=== PATIENT | male | born 1965 | race Caucasian/White ===

== ENCOUNTER 2016-09-04 12:31 | Inpatient (IN) | payer OTHER, MEDICAID ==
[~2016-09-04] VITALS: Ht 167.6 cm; Wt 57.5 kg
[2016-09-04] MEDS ORDERED: CEFEPIME 2GM/50 ML (PMX) 50 ML IVPB STA (12:47)
[2016-09-04] MEDS ORDERED: SODIUM CHLORIDE 0.9% 1L BAG IV* STA (12:47)
[2016-09-04] MEDS ORDERED: VANCOMYCIN 1 GM (PMX) 250 ML IVPB ONE (13:00)
[2016-09-04 13:54] LABS: ADD SCAN DIFF NO
[2016-09-04 13:58] LABS: BASOPHILS % 0.2 % (0.0-2.0); EOSINOPHILS % 0.1 % (0.0-7.0); HEMATOCRIT 29.9 % (42.0-52.0); HEMOGLOBIN 9.9 g/dl (14.0-18.0); LYMPHOCYTES # 1.4 10^3/ul (0.8-2.9); LYMPHOCYTES % 15.2 % (15.0-51.0); MEAN CORPUSCULAR HEMOGLOBIN 31.9 pg (29.0-33.0); MEAN CORPUSCULAR HGB CONC 33.1 g/dl (32.0-37.0); MEAN CORPUSCULAR VOLUME 96.5 fl (82.0-101.0); MEAN PLATELET VOLUME 9.5 fl (7.4-10.4); MONOCYTE # 1.1 10^3/ul (0.3-0.9); MONOCYTES % 11.2 % (0.0-11.0); NEUTROPHIL # 6.9 10^3/ul (1.6-7.5); NEUTROPHILS % 72.9 % (39.0-77.0); PLATELET COUNT 304 10^3/UL (140-415); RED CELL DISTRIBUTION WIDTH 15.8 % (11.5-14.5); WHITE BLOOD COUNT 9.4 10^3/ul (4.8-10.8)
--- NOTE | 2016-09-04 14:08 | RADRPT ---
PROCEDURE: XR Chest. CLINICAL INDICATION: Sepsis TECHNIQUE: Chest AP portable. COMPARISON: No comparison available. FINDINGS: ORIF left humerus. Left hand over the left mid lung field. The mediastinal structures are unremarkable. The heart is normal in size and configuration. The pu lmonary vascularity is normal. The lung dan are unremarkable. No consolidation is identified. The pleural spaces are unremarkable. The axial skeleton is unremarkable. Old healed left rib fractu res. IMPRESSION: No active intrathoracic disease. RPTAT: HGDB .Terrance Grover MD, MD Date Time Electronically viewed and signed by .Terrance Grover MD, on 09/04/2016 14:07 .B/
[2016-09-04 14:13] LABS: ALBUMIN 2.5 g/dl (3.3-4.9); CHLORIDE 100 mmol/L (97-110); SODIUM 142 mmol/L (135-144)
[2016-09-04 14:14] LABS: INR 1.37; PROTIME 16.9 Sec (12.2-14.2); PT RATIO 1.3
[2016-09-04 14:15] LABS: PARTIAL THROMBOPLASTIN TIME 25.4 Sec (25.0-35.0)
[2016-09-04 14:16] LABS: ALANINE AMINOTRANSFERASE 45 IU/L (13-69); ALBUMIN/GLOBULIN RATIO 0.54; ALKALINE PHOSPHATASE 123 IU/L (42-121); ANION GAP 16 (8-16); ASPARTATE AMINO TRANSFERASE 28 IU/L (15-46); BILIRUBIN,INDIRECT 1.1 mg/dl (0-1.1); BILIRUBIN,TOTAL 1.1 mg/dl (0.2-1.3); BLOOD UREA NITROGEN 11 mg/dl (7-20); CALCIUM 7.8 mg/dl (8.4-10.2); CARBON DIOXIDE 29 mmol/L (21-31); CREATININE 1.08 mg/dl (0.61-1.24); GLUCOSE 124 mg/dl (70-220); LACTATE DEHYDROGENASE 761 IU/L (313-618); TOTAL PROTEIN 7.1 g/dl (6.1-8.1)
[2016-09-04 14:27] LABS: TROPONIN-I < 0.012 ng/ml (0.00-0.12)
--- NOTE | 2016-09-04 14:51 | ERA ---
ER Documentation Chief Complaint Date/Time DATE: 09/04/16 TIME: 14:49 Chief Complaint COUGH CONGESTION FOR 1 WEEK. MILD SOB. GEN WEAKNESS. HPI Patient is a 50-year-old male with pneumonia, stroke, and HIV who presents with cough. The patient was brought in by ambulance. He has a history of pneumonia 1 month ago and was on antibiotics for 10 days. Last night he started with chills and shortness of breath as well as cough. He has subjective fever but has not taken his temperature. He is speaking in full sentences. He said that his last CD4 count was 456 and that his last viral load was undetectable. Upon review of old medical records this is the patient's first visit to the emergency department. ROS All systems reviewed and are negative except as per history of present illness. Allergies Allergies: Coded Allergies: No Known Allergy (Unverified , 09/04/16) PMhx/Soc History of Surgery: No Anesthesia Reaction: No Hx Neurological Disorder: No Hx Respiratory Disorders: No Hx Cardiac Disorders: No Hx Psychiatric Problems: No Hx Miscellaneous Medical Probl: Yes (HIV,STROKE) Hx Alcohol Use: No Hx Substance Use: No Hx Tobacco Use: No Smoking Status: Never smoker FmHx Family History: No diabetes Physical Exam Vitals Vital Signs Date Time Temp Pulse Resp B/P Pulse Ox O2 Delivery O2 Flow Rate FiO2 09/04/16 14:08 Nasal Cannula 2.0 09/04/16 14:03 Nasal Cannula 2 09/04/16 12:35 99.9 106 22 110/80 98 Physical Exam Const: Mild distress Head: Atraumatic Eyes: Normal Conjunctiva ENT: Normal External Ears, Nose and Mouth. Neck: Full range of motion..~ No meningismus. Resp: Decreased breath sounds bilaterally Cardio: Regular rate and rhythm, no murmurs Abd: Soft, non tender, non distended. Normal bowel sounds Skin: No petechiae or rashes Back: No midline or flank tenderness Ext: No cyanosis, or edema Neur: Awake and alert, left-sided weakness from previous stroke Psych: Normal Mood and Affect Result Diagram: 09/04/16 1345 09/04/16 1345 Results 24 hrs Laboratory Tests Test 09/04/16 13:45 White Blood Count 9.410^3/ul Red Blood Count 3.1010^6/ul Hemoglobin 9.9g/dl Hematocrit 29.9% Mean Corpuscular Volume 96.5fl Mean Corpuscular Hemoglobin 31.9pg Mean Corpuscular Hemoglobin Concent 33.1g/dl Red Cell Distribution Width 15.8% Platelet Count 78252^3/UL Mean Platelet Volume 9.5fl Neutrophils % 72.9% Lymphocytes % 15.2% Monocytes % 11.2% Eosinophils % 0.1% Basophils % 0.2% Nucleated Red Blood Cells % 0.0/100WBC Neutrophils # 6.910^3/ul Lymphocytes # 1.410^3/ul Monocytes # 1.110^3/ul Eosinophils # 0.010^3/ul Basophils # 0.010^3/ul Nucleated Red Blood Cells # 0.010^3/ul Prothrombin Time 16.9Sec Prothrombin Time Ratio 1.3 INR International Normalized Ratio 1.37 Activated Partial Thromboplast Time 25.4Sec Sodium Level 142mmol/L Potassium Level 3.0mmol/L Chloride Level 100mmol/L Carbon Dioxide Level 29mmol/L Anion Gap 16 Blood Urea Nitrogen 11mg/dl Creatinine 1.08mg/dl Glucose Level 124mg/dl Lactic Acid Level 3.5mmol/L Calcium Level 7.8mg/dl Total Bilirubin 1.1mg/dl Direct Bilirubin 0.00mg/dl Indirect Bilirubin 1.1mg/dl Aspartate Amino Transf (AST/SGOT) 28IU/L Alanine Aminotransferase (ALT/SGPT) 45IU/L Alkaline Phosphatase 123IU/L Lactate Dehydrogenase 761IU/L Troponin I < 0.012ng/ml Total Protein 7.1g/dl Albumin 2.5g/dl Globulin 4.60g/dl Albumin/Globulin Ratio 0.54 Current Medications Medications (Trade) Dose Ordered Sig/Charito Route PRN Reason Start Time Stop Time Status Last Admin Dose Admin Sodium Chloride 1400 ml 1,400 ml BOLUS OVER 2 HOURS STAT IV* 09/04/16 12:47 09/04/16 12:49 DC 09/04/16 13:54 Cefepime HCl 50 ml @ 100 mls/hr ONCE STAT IVPB 09/04/16 12:47 09/04/16 13:16 DC 09/04/16 13:55 Vancomycin HCl (Vancocin) 250 ml @ 125 mls/hr ONCE ONCE IVPB 09/04/16 13:00 09/04/16 14:59 09/04/16 14:14 Procedures/MDM EKG read by me: Rate/Rhythm: Tachycardic rate Intervals: Normal Impression: Tachycardia without ischemia Chest x-ray shows no obvious pneumonia per radiology. Admit MDM: Patient's infectious symptoms have not stabilized and the patient is at risk of rapid decompensation. The patient will be admitted for careful hydration, antibiotic therapy, and infectious source control. Severe Sepsis criteria: Infectious source: Pneumonia End organ damage indicated by: Lactate greater than 2 Sepsis Management: Time of recognition of sepsis: Upon arrival Within 3 hours of recognition: Blood cultures x 2 before broad-spectrum antibiotics: Yes 30 ml/kg NS bolus Completed Initial lactate 3.5 Repeat lactate pending Time of recognition of septic shock: No septic shock Septic Shock Assessment: Any lactic acid > 4.0 No Persistent hypotension (SBP < 90 or 40 mmHg drop, MAP < 65) despite 30 mL/kg IV fluid bolus No Volume Re-assessment for Septic Shock (post 30 ml/kg bolus): No septic shock at this time Persistent Hypotension Treatment: Comfort care No Central line Not Required Vasopressor started Not required I considered further perfusion assessment with CVP measurement, SCVO2, bedside ultrasound volume assessment, passive leg raise, trial of further fluid bolus. And proceeded with 30 ml/kg fluid bolus of NSS, broad spectrum antibiotics, and admission. I will also give p.o. Bactrim for possible PCP pneumonia as the patient has HIV and an elevated lactate dehydrogenase. Accepting Care Team Current data and ongoing care discussed. Admitting Physician: Unclear at this time, we are figuring out who will admit based on insurance agency owner(s): None Outstanding Data: Culture results and repeat lactic acid Critical Care: Critical care time 35 minutes excluding all billable procedures Emergent fluid management while maintaining close respiratory support. Provision of immediate and broad-spectrum antibiotic therapy. Simultaneous assessment for possible sources in order to direct targeted therapy. Consideration for invasive and chemical support to prevent cardiopulmonary collapse. Departure Diagnosis: Primary Impression: Severe sepsis Additional Impressions: Cough Pneumonia Qualified Code: J18.9 - Pneumonia due to infectious organism, unspecified laterality, unspecified part of lung Anemia Qualified Code: D64.9 - Anemia, unspecified type Hypokalemia Condition: Serious CORY UNDERWOOD MD September 04, 2016 14:51
[2016-09-04] MEDS ORDERED: TRIMETHOPRIM/SULFAMETHOX (DS) TAB PO ONE (15:00)
[2016-09-04] MEDS ORDERED: ONDANSETRON 4 MG INJ IV STA (15:14)
[2016-09-04] MEDS ORDERED: ONDANSETRON 4 MG INJ IV PRN (16:00)
[2016-09-04] MEDS ORDERED: ACETAMINOPHEN 325 MG TAB PO PRN ×2 (16:00→16:30)
[2016-09-04] MEDS ORDERED: VANCOMYCIN IV PER PHARMACY XX SCH (16:30)
[2016-09-04] MEDS ORDERED: NITROGLYCERIN (SL) 0.4 MG TAB SL PRN (16:30)
[2016-09-04] MEDS ORDERED: NA PHOSPHATE/BIPHOS 133 ML ENEMA PR PRN (16:30)
[2016-09-04] MEDS ORDERED: NACL 0.9% 3 ML SYG IV SCH (16:30)
[2016-09-04] MEDS ORDERED: hydrALAzine 20 MG INJ IV PRN (16:30)
[2016-09-04] MEDS ORDERED: LORAZEPAM 2 MG INJ IV PRN (16:30)
[2016-09-04] MEDS ORDERED: ALBUTEROL/IPRATROPIUM (NEB) 3 ML AMP HHN PRN (16:30)
[2016-09-04] MEDS ORDERED: POTASSIUM CHLORIDE (SR) 20 MEQ TAB PO STA (18:09)
[2016-09-04] MEDS: SOD CHLORIDE 0.9% 1,000 ML IV SCH (18:55)
[2016-09-04 20:00] VITALS: Ht 167.6 cm; Wt 57.5 kg
[2016-09-04] MEDS: HEPARIN 5,000 UNIT/0.5 ML VIAL SC SCH (20:18)
[2016-09-04] MEDS: ONDANSETRON 4 MG INJ IV PRN (20:20)
[2016-09-04] MEDS: morphine 2 MG INJ IV PRN (20:20)
[2016-09-04 20:36] VITALS: BP 114/78; RESP 18
[2016-09-04] MEDS: CEFEPIME 2GM/50 ML (PMX) 50 ML IVPB SCH (21:36)
[2016-09-05] MEDS: morphine 2 MG INJ IV PRN ×3 (01:40→20:10)
[2016-09-05] MEDS: SOD CHLORIDE 0.9% 1,000 ML IV SCH ×3 (02:02→18:30)
[2016-09-05] MEDS: VANCOMYCIN 500MG/NS (PMX) 100 ML IVPB SCH ×2 (04:34→18:35)
[2016-09-05] MEDS: ONDANSETRON 4 MG INJ IV PRN (04:34)
[2016-09-05] MEDS: PANTOPRAZOLE (EC) 40 MG TAB PO SCH (06:28)
[2016-09-05 07:45] VITALS: BP 124/81; RESP 18
[2016-09-05 08:21] LABS: THYROID STIMULATING HORMONE 2.1 MIU/L (0.465-4.680)
[2016-09-05] MEDS: DOCUSATE SODIUM 100 MG CAP PO PRN (09:58)
[2016-09-05] MEDS: HYDROCODONE/APAP (5/325) TAB PO PRN ×2 (09:59→18:30)
[2016-09-05] MEDS: HEPARIN 5,000 UNIT/0.5 ML VIAL SC SCH ×2 (10:01→20:25)
[2016-09-05 10:28] LABS: ADD SCAN DIFF NO
[2016-09-05 10:41] LABS: BASOPHILS % 0.5 % (0.0-2.0); EOSINOPHILS # 0.1 10^3/ul (0.0-0.5); EOSINOPHILS % 1.7 % (0.0-7.0); HEMATOCRIT 27.7 % (42.0-52.0); HEMOGLOBIN 8.9 g/dl (14.0-18.0); LYMPHOCYTES # 1.4 10^3/ul (0.8-2.9); MEAN CORPUSCULAR HEMOGLOBIN 32.2 pg (29.0-33.0); MEAN CORPUSCULAR HGB CONC 32.1 g/dl (32.0-37.0); MEAN CORPUSCULAR VOLUME 100.4 fl (82.0-101.0); MEAN PLATELET VOLUME 9.8 fl (7.4-10.4); MONOCYTE # 0.6 10^3/ul (0.3-0.9); MONOCYTES % 10.2 % (0.0-11.0); NEUTROPHIL # 3.8 10^3/ul (1.6-7.5); NEUTROPHILS % 63.1 % (39.0-77.0); PLATELET COUNT 265 10^3/UL (140-415); RED BLOOD COUNT 2.76 10^6/ul (4.70-6.10); RED CELL DISTRIBUTION WIDTH 16.1 % (11.5-14.5)
[2016-09-05 10:53] LABS: CALCIUM 7.7 mg/dl (8.4-10.2); CREATININE 0.97 mg/dl (0.61-1.24); PHOSPHORUS 3.1 mg/dl (2.5-4.9); POTASSIUM 3.4 mmol/L (3.5-5.1)
--- NOTE | 2016-09-05 11:37 | HP ---
DATE OF ADMISSION: 09/04/2016 CHIEF COMPLAINT: Cough. HISTORY OF PRESENT ILLNESS: The patient is a 50-year-old male with a history of HIV, CVA with left- sided residual weakness, bipolar, depression, who presented to the emergency department complaining of cough. He stated that he was recently diagnosed with pneumonia and completed over 1 week course of antibiotics. He stated his cough is dry for the most part. He also reports shortness of breath. Denied chest pain, no fever or chills. The patient also reported nausea and also nonbilious, nonb loody vomiting. When he presented to the ER, he had a temperature of 99.9, heart rate 106, respiratory rate 22, bloo d pressure 110/80, oxygen saturation 98% on room air. Laboratory values show a hemoglobin of 9.9, p otassium 3, alkaline phosphatase 123, calcium is 7.8, but albumin is 2.5. Initial lactic acid 3.5, but it trended down to 2.2. A chest x-ray shows no active intrathoracic disease. REVIEW OF SYSTEMS: A 12-point review of systems was performed and negative except as mentioned in H PI. PAST MEDICAL HISTORY: As per HPI. PAST SURGICAL HISTORY: Hernia repair and appendectomy. SOCIAL HISTORY: Denied a history of tobacco or illicit drug use, but drinks alcohol occasionally. ALLERGIES: NO KNOWN DRUG ALLERGIES. HOME MEDICATIONS: Please see reconciled meds. PHYSICAL EXAMINATION: VITAL SIGNS: Stable. GENERAL: No acute distress. Answering questions appropriately. He is able to speak in full senten jenelle. HEENT: No obvious head deformity. Pupils are reactive to light. CARDIOVASCULAR: Slightly tachycardic, regular rhythm. LUNGS: Minimally diminished breath sounds at the bases. ABDOMEN: Soft, nontender, nondistended. Positive bowel sounds. EXTREMITIES: No edema. NEUROLOGIC: There is decreased strength on the left side of his body. The left hand also has contr actures. LABORATORY DATA: Pertinent positives results as mentioned in the HPI. IMPRESSION: 1. Cough, likely from recent residual pneumonia. 2. History of human immunodeficiency virus. Per patient, recent CD4 count almost 500 and viral raphael d undetectable. 3. History of cerebrovascular accident with left-sided residual weakness. 4. History of bipolar/depression. 5. Hypokalemia. 6. Normocytic anemia, likely anemia of chronic disease. PLAN: He will be placed on antibiotics given recently diagnosed pneumonia. He will receive breathi ng treatments and antitussive. Given his recent history of pneumonia and presentation with lactic a eva of 3.5, we will do an infectious workup. We will attempt to send sputum for Gram stain and cult ure. We will consider placing an ID consultation to also help with his HIV. We will check his CD4 count and viral load. We will correct electrolytes as needed. Further workup and management per clinical course. Dictated By: PRETTY OLIVEROS/NITHIN Conf#: [id number] DID#: [id number]
[2016-09-05] MEDS: CEFEPIME 2GM/50 ML (PMX) 50 ML IVPB SCH ×2 (11:41→20:11)
--- NOTE | 2016-09-05 15:50 | PN ---
Date/Time of Note Date/Time of Note DATE: 09/05/16 TIME: 15:41 Assessment/Plan VTE Prophylaxis VTE Prophylaxis Intervention: SCD's Lines/Catheters IV Catheter Type (from Nrs): Peripheral IV Urinary Cath still in place: No Assessment/Plan Assessment/Plan 1. Cough, likely from recent residual pneumonia, on cefepime and vancomycin 2. Human immunodeficiency virus. Per patient, recent CD4 count almost 500 and viral load undetectable. resume medications 3. History of cerebrovascular accident with left-sided residual weakness. 4. Bipolar/depression. stable 5. Hypokalemia. supplement 6. Normocytic anemia, likely anemia of chronic disease. Subjective 24 Hr Interval Summary Free Text/Dictation states cough, nausea and vomiting at home. Exam/Review of Systems Vital Signs Vitals Vital Signs Date Time Temp Pulse Resp B/P Pulse Ox O2 Delivery O2 Flow Rate FiO2 09/05/16 07:45 98.4 83 18 124/81 96 09/04/16 17:47 Room Air 09/04/16 14:08 2.0 Intake and Output 09/04/16 09/04/16 09/05/16 15:00 23:00 07:00 Intake Total 300 ml 480 ml Output Total 50 ml Balance 300 ml 430 ml Exam Constitutional: alert, oriented, well developed Psych: nl mood/affect, no complaints Head: atraumatic, normocephalic Eyes: EOMI, PERRL, nl conjunctiva, nl lids ENMT: nl external ears & nose, nl lips & teeth, nl nasal mucosa & septum Neck: non-tender, supple Respiratory: clear to auscultation, normal air movement, No congested cough, No crackles/rales, No diminished breath sounds, No intercostal retraction, No labored breathing, No other, No respirations, No tactile fremitus, No wheezing Cardiovascular: nl pulses, regular rate and rhythm, No S3, No S4, No bruits, No diastolic murmur, No edema, No gallop, No irregular rhythm, No jugular venous distention (JVD), No murmurs/extra sounds, No other, No rub, No systolic murmur Gastrointestinal: nl liver, spleen, non-tender, soft, No ascites, No bowel sounds, No distended, No firm, No hepatomegaly, No mass , No other, No rebound or guarding, No splenomegaly, No surgical scars, No tender Musculoskeletal: nl extremities to inspection Extremities: normal pulses, No calf tenderness, No clubbing, No cyanosis, No edema, No other, No palpable cord, No pitting pedal edema, No tenderness Neurological: 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, nl mental status, nl speech, nl strength Results Result Diagram: 09/05/16 1010 09/05/16 1010 Results 24 hrs Laboratory Tests Test 09/04/16 19:44 09/04/16 23:50 09/05/16 05:35 09/05/16 10:10 Lactic Acid Level 2.8 H 2.2 2.3 H Hemoglobin A1c 4.6 Triglycerides Level 94 Cholesterol Level 90 L LDL Cholesterol, Calculated 41 HDL Cholesterol 30 Cholesterol/HDL Ratio 3.0 Thyroid Stimulating Hormone (TSH) 2.100 White Blood Count 6.0 # Red Blood Count 2.76 L Hemoglobin 8.9 L Hematocrit 27.7 L Mean Corpuscular Volume 100.4 Mean Corpuscular Hemoglobin 32.2 Mean Corpuscular Hemoglobin Concent 32.1 Red Cell Distribution Width 16.1 H Platelet Count 265 Mean Platelet Volume 9.8 Neutrophils % 63.1 Lymphocytes % 24.0 Monocytes % 10.2 Eosinophils % 1.7 Basophils % 0.5 Nucleated Red Blood Cells % 0.0 Neutrophils # 3.8 Lymphocytes # 1.4 Monocytes # 0.6 Eosinophils # 0.1 Basophils # 0.0 Nucleated Red Blood Cells # 0.0 Sodium Level 138 Potassium Level 3.4 L Chloride Level 106 Carbon Dioxide Level 28 Anion Gap 7 #L Blood Urea Nitrogen 12 Creatinine 0.97 Glucose Level 141 Calcium Level 7.7 L Phosphorus Level 3.1 Magnesium Level 2.0 Test 09/05/16 13:05 Lactic Acid Level 2.8 H Medications Medications Current Medications Ondansetron HCl (Zofran Inj) 4 mg Q6H PRN IV NAUSEA AND/OR VOMITING Last administered on 09/05/16 04:34; Admin Dose 4 MG; Start 09/04/16 at 16:30 Acetaminophen (Tylenol Tab) 650 mg Q6H PRN PO PAIN LEVEL 1-3 OR FEVER; Start at 16:30 Acetaminophen/ Hydrocodone Bitart ([place] (5/325)) 1 tab Q6H PRN PO MODERATE PAIN LEVEL 4-6 Last administered on 09/05/16 09:59; Admin Dose 1 TAB; Start at 16:30 Morphine Sulfate (morphine) 2 mg Q4H PRN IV SEVERE PAIN LEVEL 7-10 Last administered on 09/05/16 15:39; Admin Dose 2 MG; Start 09/04/16 at 16:30 Docusate Sodium (Colace) 100 mg Q12H PRN PO CONSTIPATION Last administered on 09:58; Admin Dose 100 MG; Start 09/04/16 at 16:30 Magnesium Hydroxide (Milk Of Mag) 30 ml DAILY PRN PO CONSTIPATION; Start at 16:30 Sodium Biphosphate/ Sodium Phosphate (Fleet Enema) 133 ml DAILY PRN IN CONSTIPATION; Start 09/04/16 at 16:30 Pantoprazole (Protonix Tab) 40 mg DAILY@06 PO Last administered on 09/05/16 06 :28; Admin Dose 40 MG; Start 09/05/16 at 06:00 Heparin Sodium (Porcine) (Heparin (5000 Units/0.5 ml)) 5,000 unit Q12 SC Last administered on 09/05/16 10:01; Admin Dose 5,000 UNIT; Start 09/04/16 at 21:00 Lorazepam 0.5 mg 0.5 mg Q6H PRN IV ANXIETY; Start 09/04/16 at 16:30 Sodium Chloride (NS) 1,000 ml @ 100 mls/hr Q10H IV Last administered on 18:55; Admin Dose 100 MLS/HR; Start 09/04/16 at 16:02 Vancomycin HCl (Vanco Iv Per Pharmacy) VANCOMYCIN PER PHARMACY NOTE XX ; Start 09/04/16 at 16:30 Hydralazine HCl (Apresoline) 10 mg Q6H PRN IV ELEVATED BLOOD PRESSURE; Start at 16:30 Nitroglycerin 1 tab 1 tab Q5M PRN SL ANGINA; Start 09/04/16 at 16:30 Cefepime HCl 50 ml @ 100 mls/hr Q12 IVPB Last administered on 09/05/16 11:41 ; Admin Dose 100 MLS/HR; Start 09/04/16 at 21:00 Vancomycin HCl (Vancocin) 100 ml @ 100 mls/hr Q12H IVPB Last administered on 04:34; Admin Dose 100 MLS/HR; Start 09/05/16 at 05:00 Miscellaneous Information (*Rx Drug Level Order Reminder*) VANCOMYCIN TROUGH AT 0400 ONCE ONCE XX ; Start 09/06/16 at 04:00; Stop 09/06/16 at 04:01 CAMRON SCHILLING MD September 05, 2016 15:50
[2016-09-05 20:01] VITALS: BP 114/75; RESP 18
[2016-09-06 04:09] LABS: ADD SCAN DIFF NO
[2016-09-06 04:12] LABS: BASOPHILS % 0.6 % (0.0-2.0); EOSINOPHILS # 0.2 10^3/ul (0.0-0.5); EOSINOPHILS % 2.8 % (0.0-7.0); HEMATOCRIT 26.7 % (42.0-52.0); HEMOGLOBIN 8.6 g/dl (14.0-18.0); LYMPHOCYTES # 2.3 10^3/ul (0.8-2.9); LYMPHOCYTES % 33.3 % (15.0-51.0); MEAN CORPUSCULAR HEMOGLOBIN 32.6 pg (29.0-33.0); MEAN CORPUSCULAR HGB CONC 32.2 g/dl (32.0-37.0); MEAN CORPUSCULAR VOLUME 101.1 fl (82.0-101.0); MEAN PLATELET VOLUME 9.7 fl (7.4-10.4); MONOCYTE # 0.7 10^3/ul (0.3-0.9); MONOCYTES % 10.5 % (0.0-11.0); NEUTROPHIL # 3.5 10^3/ul (1.6-7.5); NEUTROPHILS % 52.1 % (39.0-77.0); PLATELET COUNT 271 10^3/UL (140-415); RED BLOOD COUNT 2.64 10^6/ul (4.70-6.10); RED CELL DISTRIBUTION WIDTH 15.9 % (11.5-14.5); WHITE BLOOD COUNT 6.8 10^3/ul (4.8-10.8)
[2016-09-06 04:32] LABS: POTASSIUM 3.1 mmol/L (3.5-5.1)
[2016-09-06 04:35] LABS: CREATININE 0.86 mg/dl (0.61-1.24)
[2016-09-06 04:36] LABS: CALCIUM 7.3 mg/dl (8.4-10.2)
[2016-09-06] MEDS: VANCOMYCIN 500MG/NS (PMX) 100 ML IVPB SCH ×2 (05:00→15:51)
[2016-09-06] MEDS: PANTOPRAZOLE (EC) 40 MG TAB PO SCH (05:39)
[2016-09-06] MEDS ORDERED: LIDOCAINE 1% (MPF) 5 ML VIAL SC ONE ×2 (07:00→13:00)
[2016-09-06 08:00] VITALS: BP 132/64; RESP 20
[2016-09-06] MEDS: DOCUSATE SODIUM 100 MG CAP PO PRN (08:25)
[2016-09-06] MEDS: HEPARIN 5,000 UNIT/0.5 ML VIAL SC SCH ×2 (08:27→21:08)
[2016-09-06] MEDS ORDERED: LORAZEPAM 0.5 MG TAB PO PRN (10:00)
[2016-09-06 11:13] LABS: LYMPHOCYTE - CD4/CD8 RATIO 1.37 (0.86-5.00)
[2016-09-06] MEDS ORDERED: POTASSIUM CHLORIDE (SR) 20 MEQ TAB PO STA (11:50)
--- NOTE | 2016-09-06 14:34 | RADRPT ---
PROCEDURE: XR Chest. CLINICAL INDICATION: Status post PICC line placement TECHNIQUE: Single view of the chest COMPARISON: Chest radiograph September 04, 20:17 FINDINGS: There has been placement of a right-sided PICC with its tip at the cavoatrial junction. There is no focal consolidation. The heart size is normal. There is no pleural effusion. There is a curvilinear line projecting at the periphery of the right upper lung, possibly a skin fol d overlying the patient, but difficult to exclude a pneumothorax. There is no acute osseous abnormality. IMPRESSION: 1. Right-sided PICC with its tip at the cavoatrial junction. 2. Apparent curvilinear line projecting over the right upper lung probably representing a skin fold or is overlying the patient but difficult to entirely exclude a pneumothorax. A repeat chest radio graph is recommended. RPTAT: UU .Mike Preciado MD, Date Time Electronically viewed and signed by .Mike Preciado MD, on 09/06/2016 14:33 .K/
--- NOTE | 2016-09-06 14:39 | RADRPT ---
PROCEDURE: XR Chest. CLINICAL INDICATION: Follow up chest radiograph TECHNIQUE: Single view of the chest COMPARISON: Chest radiograph September 06, 2016 at 02:21 p.m. FINDINGS: There is a right-sided PICC with its tip at the cavoatrial junction. There is no focal consolidation. Heart size is normal. There is no pleural effusion. There is no pneumothorax. There is no acute osseous abnormality. IMPRESSION: 1. No evidence of pneumothorax. The previously described curvilinear line at the right lung apex i s no longer present and may have represented a skin fold or was overlying the patient. 2. Right-sided PICC with its tip at the cavoatrial junction. RPTAT: UU .Miek Preciado MD, MD Date Time Electronically viewed and signed by .Mike Preciado MD, on 09/06/2016 14:39 .K/
[2016-09-06] MEDS: SOD CHLORIDE 0.9% 1,000 ML IV SCH ×2 (15:07→17:39)
[2016-09-06] MEDS: CEFEPIME 2GM/50 ML (PMX) 50 ML IVPB SCH ×2 (15:07→21:05)
--- NOTE | 2016-09-06 15:39 | PN ---
Date/Time of Note Date/Time of Note DATE: 09/06/16 TIME: 15:35 Assessment/Plan VTE Prophylaxis VTE Prophylaxis Intervention: heparin Lines/Catheters IV Catheter Type (from Nrsg): PICC Line Central line still needed: Yes Assessment/Plan Assessment/Plan 1. Cough, likely from recent residual pneumonia, on cefepime and vancomycin 2. Human immunodeficiency virus. Per patient, recent CD4 count almost 500 and viral load undetectable. resume medications 3. History of cerebrovascular accident with left-sided residual weakness. 4. Bipolar/depression. stable 5. Hypokalemia. supplement 6. Normocytic anemia, likely anemia of chronic disease. 7. Chronic nausea, EGD tomorrow 8. DVT prophylaxis: heparin Subjective 24 Hr Interval Summary Free Text/Dictation no cough but still nauseous. No vomiting. no fever or chills. No abdominal pain Exam/Review of Systems Vital Signs Vitals Vital Signs Date Time Temp Pulse Resp B/P Pulse Ox O2 Delivery O2 Flow Rate FiO2 09/06/16 08:00 98.2 76 20 132/64 94 09/04/16 17:47 Room Air 09/04/16 14:08 2.0 Intake and Output 09/05/16 09/05/16 09/06/16 15:00 23:00 07:00 Intake Total 150 ml 630 ml 1180 ml Output Total 400 ml 400 ml Balance 150 ml 230 ml 780 ml Exam Constitutional: alert, oriented, well developed Head: atraumatic, normocephalic Eyes: EOMI, nl conjunctiva, nl lids ENMT: nl external ears & nose, nl lips & teeth, nl nasal mucosa & septum Neck: non-tender, supple Respiratory: clear to auscultation, normal air movement, No congested cough, No crackles/rales, No diminished breath sounds, No intercostal retraction, No labored breathing, No other, No respirations, No tactile fremitus, No wheezing Cardiovascular: nl pulses, regular rate and rhythm, No S3, No S4, No bruits, No diastolic murmur, No edema, No gallop, No irregular rhythm, No jugular venous distention (JVD), No murmurs/extra sounds, No other, No rub, No systolic murmur Gastrointestinal: nl liver, spleen, non-tender, soft, No ascites, No bowel sounds, No distended, No firm, No hepatomegaly, No mass , No other, No rebound or guarding, No splenomegaly, No surgical scars, No tender Musculoskeletal: nl extremities to inspection Extremities: normal pulses, No calf tenderness, No clubbing, No cyanosis, No edema, No other, No palpable cord, No pitting pedal edema, No tenderness Neurological: SENIOR EDITOR II-XII intact, nl mental status, nl speech Results Result Diagram: 09/06/16 0345 09/06/16 0345 Results 24 hrs Laboratory Tests Test 09/05/16 18:16 09/06/16 03:45 Lactic Acid Level 2.8 H White Blood Count 6.8 Red Blood Count 2.64 L Hemoglobin 8.6 L Hematocrit 26.7 L Mean Corpuscular Volume 101.1 H Mean Corpuscular Hemoglobin 32.6 Mean Corpuscular Hemoglobin Concent 32.2 Red Cell Distribution Width 15.9 H Platelet Count 271 Mean Platelet Volume 9.7 Neutrophils % 52.1 Lymphocytes % 33.3 Monocytes % 10.5 Eosinophils % 2.8 Basophils % 0.6 Nucleated Red Blood Cells % 0.0 Neutrophils # 3.5 Lymphocytes # 2.3 Monocytes # 0.7 Eosinophils # 0.2 Basophils # 0.0 Nucleated Red Blood Cells # 0.0 Sodium Level 139 Potassium Level 3.1 L Chloride Level 106 Carbon Dioxide Level 25 Anion Gap 11 Blood Urea Nitrogen 11 Creatinine 0.86 Glucose Level 90 # Calcium Level 7.3 L Vancomycin Level Trough 13.0 Medications Medications Current Medications Ondansetron HCl (Zofran Inj) 4 mg Q6H PRN IV NAUSEA AND/OR VOMITING Last administered on 09/05/16 04:34; Admin Dose 4 MG; Start 09/04/16 at 16:30 Acetaminophen (Tylenol Tab) 650 mg Q6H PRN PO PAIN LEVEL 1-3 OR FEVER; Start at 16:30 Acetaminophen/ Hydrocodone Bitart ([place] (5/325)) 1 tab Q6H PRN PO MODERATE PAIN LEVEL 4-6 Last administered on 09/05/16 18:30; Admin Dose 1 TAB; Start at 16:30 Morphine Sulfate (morphine) 2 mg Q4H PRN IV SEVERE PAIN LEVEL 7-10 Last administered on 09/05/16 20:10; Admin Dose 2 MG; Start 09/04/16 at 16:30 Docusate Sodium (Colace) 100 mg Q12H PRN PO CONSTIPATION Last administered on 08:25; Admin Dose 100 MG; Start 09/04/16 at 16:30 Magnesium Hydroxide (Milk Of Mag) 30 ml DAILY PRN PO CONSTIPATION; Start at 16:30 Sodium Biphosphate/ Sodium Phosphate (Fleet Enema) 133 ml DAILY PRN [place] CONSTIPATION; Start 09/04/16 at 16:30 Pantoprazole (Protonix Tab) 40 mg DAILY@06 PO Last administered on 09/06/16 05 :39; Admin Dose 40 MG; Start 09/05/16 at 06:00 Heparin Sodium (Porcine) (Heparin (5000 Units/0.5 ml)) 5,000 unit Q12 SC Last administered on 09/06/16 08:27; Admin Dose 5,000 UNIT; Start 09/04/16 at 21:00 Lorazepam 0.5 mg 0.5 mg Q6H PRN IV ANXIETY; Start 09/04/16 at 16:30 Sodium Chloride (NS) 1,000 ml @ 100 mls/hr Q10H IV Last administered on 15:07; Admin Dose 100 MLS/HR; Start 09/04/16 at 16:02 Vancomycin HCl (Vanco Iv Per Pharmacy) VANCOMYCIN PER PHARMACY NOTE XX ; Start 09/04/16 at 16:30 Hydralazine HCl (Apresoline) 10 mg Q6H PRN IV ELEVATED BLOOD PRESSURE; Start at 16:30 Nitroglycerin 1 tab 1 tab Q5M PRN SL ANGINA; Start 09/04/16 at 16:30 Cefepime HCl 50 ml @ 100 mls/hr Q12 IVPB Last administered on 09/06/16 15:07 ; Admin Dose 100 MLS/HR; Start 09/04/16 at 21:00 Vancomycin HCl (Vancocin) 100 ml @ 100 mls/hr Q12H IVPB Last administered on 18:35; Admin Dose 100 MLS/HR; Start 09/05/16 at 05:00 Lorazepam (Ativan) 1 mg Q6H PRN PO ANXIETY Last administered on 09/06/16 11:14 ; Admin Dose 1 MG; Start 09/06/16 at 10:00 IV Flush (NS 10 ml) 10 ml PRN PRN IV IV PROTOCOL; Start 09/06/16 at 15:30 CAMRON SCHILLING MD September 06, 2016 15:39
--- NOTE | 2016-09-06 15:42 | RADRPT ---
PROCEDURE: Ultrasound guidance for placement of needle in right upper extremity vein. CLINICAL INDICATION: Venous access. TECHNIQUE: Limited sonography of the right upper extremity was performed. Ultrasound images were recorded and stored in the patient's medical record. COMPARISON: None. FINDINGS: The ultrasound images demonstrate a patent right upper extremity vein. The PICC line was inserted b y the PICC line nurse. IMPRESSION: 1. Ultrasound guidance for a needle placement in a right upper extremity vein. 2. The visualized right upper extremity vein is patent. RPTAT: QQ .Yakov Camacho MD, MD Date Time Electronically viewed and signed by .Yakov Camacho MD, MD on 09/06/2016 15:42 .R/
[2016-09-06] MEDS: ONDANSETRON 4 MG INJ IV PRN ×2 (15:45→21:12)
--- NOTE | 2016-09-06 15:55 | CONS ---
Date/Time of Note Date/Time of Note DATE: 09/06/16 TIME: 15:43 Assessment/Plan Assessment/Plan Additional Assessment/Plan Assessment * Nausea/vomiting * Anemia hemoglobin 8.9 * History of HIV * History of CVA Plan * EGD/Colonoscopy risk and benefit explained to patient and agreed with the planned procedure * Reglan 10 mg q6 for nausea/vomiting * continue present management Consultation Date/Type/Reason Admit Date/Time September 04, 2016 at 15:40 Date of Consultation: September 06, 2016 Type of Consultation: Gastroenterolgy Reason for Consultation nausea vomiting Referring Provider: CAMRON SCHILLING MD Hx of Present Illness 50 year old male with past medical history of HIV,CVA with residual left sided paralysis was brought to our emergency room with chief complaint of cough , nausea and vomiting.Present condition stated 1 month ago as nausea and vomiting .Denies any history of travel,fever ,abdominal pain,hematemesis,hematochezia and colonoscopy.No consultations nor medications taken but 1 day prior to consult severe vomiting X4 consisting of previously ingested food with occasional blood streaked vomitus hence consult. Emergency room course chest x-ray negative for intrathoracic disease.Hemoglobin 9.4.hgb9.9 hct 29.9. Presentley patient had 2 episodes of vomiting ,denies abdominal pain, hematemesis nor melena.Present hemoglobin 8.6 Constitutional: improved, no complaints Eyes: no complaints ENT: no complaints Respiratory: cough Cardiovascular: no complaints Gastrointestinal: flatus, nausea, vomiting Genitourinary: no complaints Musculoskeletal: no complaints Skin: no complaints Neurologic: no complaints Endocrine: no complaints Lymphatic: no complaints Psychological: nl mood/affect, no complaints Immunologic: no complaints Past Medical History Medical History: other (hiv,CVA) Social History Smoking Status: Never smoker Exam/Review of Systems Vital Signs Vitals Vital Signs Date Time Temp Pulse Resp B/P Pulse Ox O2 Delivery O2 Flow Rate FiO2 09/06/16 08:00 98.2 76 20 132/64 94 09/04/16 17:47 Room Air 09/04/16 14:08 2.0 Intake and Output 09/05/16 09/05/16 09/06/16 14:59 22:59 06:59 Intake Total 150 ml 630 ml 1180 ml Output Total 400 ml 400 ml Balance 150 ml 230 ml 780 ml Exam Constitutional: alert, frail Head: atraumatic, normocephalic Eyes: PERRL, nl conjunctiva Neck: non-tender, supple Respiratory: clear to auscultation, normal air movement Cardiovascular: nl pulses, regular rate and rhythm Gastrointestinal: nl liver, spleen, non-tender, soft Musculoskeletal: nl extremities to inspection, nl gait and stance Extremities: normal pulses Results Result Diagram: 09/06/16 0345 09/06/16 0345 Results 24 hrs Laboratory Tests Test 09/05/16 18:16 09/06/16 03:45 Lactic Acid Level 2.8 H White Blood Count 6.8 Red Blood Count 2.64 L Hemoglobin 8.6 L Hematocrit 26.7 L Mean Corpuscular Volume 101.1 H Mean Corpuscular Hemoglobin 32.6 Mean Corpuscular Hemoglobin Concent 32.2 Red Cell Distribution Width 15.9 H Platelet Count 271 Mean Platelet Volume 9.7 Neutrophils % 52.1 Lymphocytes % 33.3 Monocytes % 10.5 Eosinophils % 2.8 Basophils % 0.6 Nucleated Red Blood Cells % 0.0 Neutrophils # 3.5 Lymphocytes # 2.3 Monocytes # 0.7 Eosinophils # 0.2 Basophils # 0.0 Nucleated Red Blood Cells # 0.0 Sodium Level 139 Potassium Level 3.1 L Chloride Level 106 Carbon Dioxide Level 25 Anion Gap 11 Blood Urea Nitrogen 11 Creatinine 0.86 Glucose Level 90 # Calcium Level 7.3 L Vancomycin Level Trough 13.0 Medications Medications Current Medications Ondansetron HCl (Zofran Inj) 4 mg Q6H PRN IV NAUSEA AND/OR VOMITING Last administered on 09/05/16 04:34; Admin Dose 4 MG; Start 09/04/16 at 16:30 Acetaminophen (Tylenol Tab) 650 mg Q6H PRN PO PAIN LEVEL 1-3 OR FEVER; Start at 16:30 Acetaminophen/ Hydrocodone Bitart ([place] (5/325)) 1 tab Q6H PRN PO MODERATE PAIN LEVEL 4-6 Last administered on 09/05/16 18:30; Admin Dose 1 TAB; Start at 16:30 Morphine Sulfate (morphine) 2 mg Q4H PRN IV SEVERE PAIN LEVEL 7-10 Last administered on 09/05/16 20:10; Admin Dose 2 MG; Start 09/04/16 at 16:30 Docusate Sodium (Colace) 100 mg Q12H PRN PO CONSTIPATION Last administered on 08:25; Admin Dose 100 MG; Start 09/04/16 at 16:30 Magnesium Hydroxide (Milk Of Mag) 30 ml DAILY PRN PO CONSTIPATION; Start at 16:30 Sodium Biphosphate/ Sodium Phosphate (Fleet Enema) 133 ml DAILY PRN [place] CONSTIPATION; Start 09/04/16 at 16:30 Pantoprazole (Protonix Tab) 40 mg DAILY@06 PO Last administered on 09/06/16 05 :39; Admin Dose 40 MG; Start 09/05/16 at 06:00 Heparin Sodium (Porcine) (Heparin (5000 Units/0.5 ml)) 5,000 unit Q12 SC Last administered on 09/06/16 08:27; Admin Dose 5,000 UNIT; Start 09/04/16 at 21:00 Lorazepam 0.5 mg 0.5 mg Q6H PRN IV ANXIETY; Start 09/04/16 at 16:30 Sodium Chloride (NS) 1,000 ml @ 100 mls/hr Q10H IV Last administered on 15:07; Admin Dose 100 MLS/HR; Start 09/04/16 at 16:02 Vancomycin HCl (Vanco Iv Per Pharmacy) VANCOMYCIN PER PHARMACY NOTE XX ; Start 09/04/16 at 16:30 Hydralazine HCl (Apresoline) 10 mg Q6H PRN IV ELEVATED BLOOD PRESSURE; Start at 16:30 Nitroglycerin 1 tab 1 tab Q5M PRN SL ANGINA; Start 09/04/16 at 16:30 Cefepime HCl 50 ml @ 100 mls/hr Q12 IVPB Last administered on 09/06/16 15:07 ; Admin Dose 100 MLS/HR; Start 09/04/16 at 21:00 Vancomycin HCl (Vancocin) 100 ml @ 100 mls/hr Q12H IVPB Last administered on 18:35; Admin Dose 100 MLS/HR; Start 09/05/16 at 05:00 Lorazepam (Ativan) 1 mg Q6H PRN PO ANXIETY Last administered on 09/06/16 11:14 ; Admin Dose 1 MG; Start 09/06/16 at 10:00 IV Flush (NS 10 ml) 10 ml PRN PRN IV IV PROTOCOL; Start 09/06/16 at 15:30 JOSE NANCE MD September 06, 2016 15:55
[2016-09-06] MEDS: morphine 2 MG INJ IV PRN ×2 (15:58→20:05)
[2016-09-06] MEDS ORDERED: BISACODYL (EC) 5 MG TAB PO ONE (16:00)
[2016-09-06] MEDS ORDERED: SOD CHLORIDE 0.9% 100 ML ONE (16:53)
[2016-09-06] MEDS ORDERED: MAGNESIUM CITRATE 300 ML BTL PO ONE (17:30)
[2016-09-06] MEDS ORDERED: POLYETHYLENE GLYCOL 3350 119 GM POWDER PO ONE ×2 (18:30→20:00)
[2016-09-07] VITALS (8 sets, daily range): BP systolic 124–161; BP diastolic 73–98; PULSE 88–104; RESP 16–20
[2016-09-07] MEDS: morphine 2 MG INJ IV PRN ×5 (00:09→23:50)
[2016-09-07] MEDS: SOD CHLORIDE 0.9% 1,000 ML IV SCH ×3 (04:02→21:10)
[2016-09-07] MEDS: PANTOPRAZOLE (EC) 40 MG TAB PO SCH ×2 (05:29→21:08)
[2016-09-07] MEDS: VANCOMYCIN 500MG/NS (PMX) 100 ML IVPB SCH (05:29)
[2016-09-07] MEDS: ONDANSETRON 4 MG INJ IV PRN ×3 (05:43→11:12)
[2016-09-07] MEDS ORDERED: POLYETHYLENE GLYCOL 3350 119 GM POWDER PO ONE (06:00)
[2016-09-07] MEDS ORDERED: BISACODYL (EC) 5 MG TAB PO ONE (08:00)
[2016-09-07] MEDS: CEFEPIME 2GM/50 ML (PMX) 50 ML IVPB SCH (08:06)
[2016-09-07] MEDS: HEPARIN 5,000 UNIT/0.5 ML VIAL SC SCH ×2 (08:07→21:09)
[2016-09-07 08:22] LABS: ADD SCAN DIFF NO
[2016-09-07 08:33] LABS: BASOPHILS % 0.4 % (0.0-2.0); EOSINOPHILS # 0.1 10^3/ul (0.0-0.5); EOSINOPHILS % 0.7 % (0.0-7.0); HEMATOCRIT 25.2 % (42.0-52.0); HEMOGLOBIN 8.1 g/dl (14.0-18.0); LYMPHOCYTES # 1.5 10^3/ul (0.8-2.9); LYMPHOCYTES % 16.6 % (15.0-51.0); MEAN CORPUSCULAR HEMOGLOBIN 32.5 pg (29.0-33.0); MEAN CORPUSCULAR HGB CONC 32.1 g/dl (32.0-37.0); MEAN CORPUSCULAR VOLUME 101.2 fl (82.0-101.0); MEAN PLATELET VOLUME 9.7 fl (7.4-10.4); MONOCYTE # 0.7 10^3/ul (0.3-0.9); MONOCYTES % 7.6 % (0.0-11.0); NEUTROPHIL # 6.8 10^3/ul (1.6-7.5); NEUTROPHILS % 74.2 % (39.0-77.0); PLATELET COUNT 250 10^3/UL (140-415); RED BLOOD COUNT 2.49 10^6/ul (4.70-6.10); RED CELL DISTRIBUTION WIDTH 15.9 % (11.5-14.5); WHITE BLOOD COUNT 9.2 10^3/ul (4.8-10.8)
[2016-09-07 08:45] LABS: POTASSIUM 3.9 mmol/L (3.5-5.1)
[2016-09-07 08:47] LABS: CREATININE 0.73 mg/dl (0.61-1.24)
[2016-09-07 08:48] LABS: CALCIUM 7.2 mg/dl (8.4-10.2)
[2016-09-07] MEDS ORDERED: MAGNESIUM CITRATE 300 ML BTL PO ONE (11:00)
--- NOTE | 2016-09-07 11:30 | RADRPT ---
Vent Rate: 87 bpm RR Interval: 0 msec AR Interval: 154 msec QRS Duration: 78 msec QT Interval: 432 msec QTC Interval: 519 msec P-R-T [place]: 25 - -1 - 24 degrees Normal sinus rhythm Low voltage QRS Possible Lateral infarct , age undetermined Prolonged QT Abnormal ECG Electronically Signed By: Nitesh Saba [id number]
[2016-09-07] MEDS ORDERED: PROCHLORPERAZINE 10 MG INJ IV PRN (14:30)
--- NOTE | 2016-09-07 15:47 | PN ---
Date/Time of Note Date/Time of Note DATE: 09/07/16 TIME: 15:45 Assessment/Plan VTE Prophylaxis VTE Prophylaxis Intervention: heparin Lines/Catheters IV Catheter Type (from Nrsg): PICC Line Central line still needed: Yes Urinary Cath still in place: No Assessment/Plan Assessment/Plan 1. Intractable nausea, EDG today, follow up with GI 2. Acute bronchitis, negative CXR, levaquin 3. Human immunodeficiency virus. Per patient, recent CD4 count almost 500 and viral load undetectable. resume medications 4. History of cerebrovascular accident with left-sided residual weakness. 5. Bipolar/depression. stable 6. Hypokalemia. corrected 7. Normocytic anemia, likely anemia of chronic disease. 8. DVT prophylaxis: heparin Subjective 24 Hr Interval Summary Free Text/Dictation nausea. cough Exam/Review of Systems Vital Signs Vitals Vital Signs Date Time Temp Pulse Resp B/P Pulse Ox O2 Delivery O2 Flow Rate FiO2 09/07/16 08:00 98.6 94 18 126/82 96 09/04/16 17:47 Room Air 09/04/16 14:08 2.0 Intake and Output 09/06/16 09/06/16 09/07/16 14:59 22:59 06:59 Intake Total 440 ml 1900 ml Output Total 540 ml 800 ml Balance -100 ml 1100 ml Exam Constitutional: alert, oriented, well developed Psych: nl mood/affect, no complaints Head: atraumatic, normocephalic Eyes: EOMI, PERRL, nl conjunctiva, nl lids, nl sclera ENMT: nl external ears & nose, nl lips & teeth, nl nasal mucosa & septum Neck: non-tender, supple Respiratory: clear to auscultation, normal air movement, No congested cough, No crackles/rales, No diminished breath sounds, No intercostal retraction, No labored breathing, No other, No respirations, No tactile fremitus, No wheezing Cardiovascular: nl pulses, regular rate and rhythm, No S3, No S4, No bruits, No diastolic murmur, No edema, No gallop, No irregular rhythm, No jugular venous distention (JVD), No murmurs/extra sounds, No other, No rub, No systolic murmur Gastrointestinal: nl liver, spleen, non-tender, soft, No ascites, No bowel sounds, No distended, No firm, No hepatomegaly, No mass , No other, No rebound or guarding, No splenomegaly, No surgical scars, No tender Musculoskeletal: nl extremities to inspection Extremities: normal pulses, No calf tenderness, No clubbing, No cyanosis, No edema, No other, No palpable cord, No pitting pedal edema, No tenderness Neurological: [employer] II-XII intact, nl mental status, nl speech, nl strength Skin: nl turgor Lymph: nl lymph nodes Results Result Diagram: 09/07/1680309/07/16 08 Results 24 hrs Laboratory Tests Test 09/07/16 08:04 White Blood Count 9.2 # Red Blood Count 2.49 L Hemoglobin 8.1 L Hematocrit 25.2 L Mean Corpuscular Volume 101.2 H Mean Corpuscular Hemoglobin 32.5 Mean Corpuscular Hemoglobin Concent 32.1 Red Cell Distribution Width 15.9 H Platelet Count 250 Mean Platelet Volume 9.7 Neutrophils % 74.2 Lymphocytes % 16.6 Monocytes % 7.6 Eosinophils % 0.7 Basophils % 0.4 Nucleated Red Blood Cells % 0.0 Neutrophils # 6.8 Lymphocytes # 1.5 Monocytes # 0.7 Eosinophils # 0.1 Basophils # 0.0 Nucleated Red Blood Cells # 0.0 Sodium Level 141 Potassium Level 3.9 Chloride Level 111 H Carbon Dioxide Level 21 Anion Gap 13 Blood Urea Nitrogen 9 Creatinine 0.73 Glucose Level 113 Calcium Level 7.2 L Medications Medications Current Medications Ondansetron HCl (Zofran Inj) 4 mg Q6H PRN IV NAUSEA AND/OR VOMITING Last administered on 09/07/16 11:12; Admin Dose 4 MG; Start 09/04/16 at 16:30 Acetaminophen (Tylenol Tab) 650 mg Q6H PRN PO PAIN LEVEL 1-3 OR FEVER; Start at 16:30 Acetaminophen/ Hydrocodone Bitart ([place] (5/325)) 1 tab Q6H PRN PO MODERATE PAIN LEVEL 4-6 Last administered on 09/05/16 18:30; Admin Dose 1 TAB; Start at 16:30 Morphine Sulfate (morphine) 2 mg Q4H PRN IV SEVERE PAIN LEVEL 7-10 Last administered on 09/07/16 13:12; Admin Dose 2 MG; Start 09/04/16 at 16:30 Docusate Sodium (Colace) 100 mg Q12H PRN PO CONSTIPATION Last administered on 08:25; Admin Dose 100 MG; Start 09/04/16 at 16:30 Magnesium Hydroxide (Milk Of Mag) 30 ml DAILY PRN PO CONSTIPATION; Start at 16:30 Sodium Biphosphate/ Sodium Phosphate (Fleet Enema) 133 ml DAILY PRN [place] CONSTIPATION; Start 09/04/16 at 16:30 Pantoprazole (Protonix Tab) 40 mg DAILY@06 PO Last administered on 09/07/16 05 :29; Admin Dose 40 MG; Start 09/05/16 at 06:00 Heparin Sodium (Porcine) (Heparin (5000 Units/0.5 ml)) 5,000 unit Q12 SC Last administered on 09/06/16 21:08; Admin Dose 5,000 UNIT; Start 09/04/16 at 21:00 Lorazepam 0.5 mg 0.5 mg Q6H PRN IV ANXIETY; Start 09/04/16 at 16:30 Sodium Chloride (NS) 1,000 ml @ 100 mls/hr Q10H IV Last administered on 05:31; Admin Dose 100 MLS/HR; Start 09/04/16 at 16:02 Vancomycin HCl (Vanco Iv Per Pharmacy) VANCOMYCIN PER PHARMACY NOTE XX ; Start 09/04/16 at 16:30 Hydralazine HCl (Apresoline) 10 mg Q6H PRN IV ELEVATED BLOOD PRESSURE; Start at 16:30 Nitroglycerin 1 tab 1 tab Q5M PRN SL ANGINA; Start 09/04/16 at 16:30 Cefepime HCl 50 ml @ 100 mls/hr Q12 IVPB Last administered on 09/07/16 08:06 ; Admin Dose 100 MLS/HR; Start 09/04/16 at 21:00 Vancomycin HCl (Vancocin) 100 ml @ 100 mls/hr Q12H IVPB Last administered on 05:29; Admin Dose 100 MLS/HR; Start 09/05/16 at 05:00 Lorazepam (Ativan) 1 mg Q6H PRN PO ANXIETY Last administered on 09/06/16 11:14 ; Admin Dose 1 MG; Start 09/06/16 at 10:00 IV Flush (NS 10 ml) 10 ml PRN PRN IV IV PROTOCOL Last administered on 15:08; Admin Dose 10 ML; Start 09/06/16 at 15:30 Zolpidem Tartrate (Ambien) 10 mg HS PRN PO INSOMNIA; Start 09/07/16 at 02:30 Prochlorperazine (Compazine Inj) 5 mg Q6H PRN IV NAUSEA AND/OR VOMITING Last administered on 09/07/16 15:08; Admin Dose 5 MG; Start 09/07/16 at 14:30 CAMRON SCHILLING MD September 07, 2016 15:47
[2016-09-07] MEDS ORDERED: PROPOFOL 40 ML ONE (16:32)
[2016-09-07] MEDS ORDERED: LIDOCAINE 2% (SDV) 5 ML INJ ONE (16:32)
[2016-09-07] MEDS: METOCLOPRAMIDE 10 MG TAB PO SCH (21:07)
[2016-09-07] MEDS: ZOLPIDEM 5 MG TAB PO PRN (21:11)
[2016-09-08] MEDS: morphine 2 MG INJ IV PRN ×5 (04:34→22:35)
[2016-09-08] MEDS: METOCLOPRAMIDE 10 MG TAB PO SCH ×3 (05:48→21:00)
[2016-09-08] MEDS: PANTOPRAZOLE (EC) 40 MG TAB PO SCH ×2 (08:10→20:59)
[2016-09-08] MEDS: SOD CHLORIDE 0.9% 1,000 ML IV SCH ×2 (08:10→18:35)
[2016-09-08] MEDS: HEPARIN 5,000 UNIT/0.5 ML VIAL SC SCH ×2 (08:11→21:00)
[2016-09-08 08:27] VITALS: BP 124/73; RESP 18
[2016-09-08 11:00] LABS: ADD SCAN DIFF NO
[2016-09-08 11:07] LABS: BASOPHILS % 0.4 % (0.0-2.0); EOSINOPHILS # 0.1 10^3/ul (0.0-0.5); EOSINOPHILS % 1.1 % (0.0-7.0); HEMATOCRIT 23.3 % (42.0-52.0); HEMOGLOBIN 7.6 g/dl (14.0-18.0); LYMPHOCYTES # 1.7 10^3/ul (0.8-2.9); LYMPHOCYTES % 22.5 % (15.0-51.0); MEAN CORPUSCULAR HGB CONC 32.6 g/dl (32.0-37.0); MEAN CORPUSCULAR VOLUME 101.3 fl (82.0-101.0); MEAN PLATELET VOLUME 10.1 fl (7.4-10.4); MONOCYTE # 0.6 10^3/ul (0.3-0.9); MONOCYTES % 8.5 % (0.0-11.0); NEUTROPHIL # 4.9 10^3/ul (1.6-7.5); NEUTROPHILS % 66.8 % (39.0-77.0); PLATELET COUNT 196 10^3/UL (140-415); RED CELL DISTRIBUTION WIDTH 15.9 % (11.5-14.5); WHITE BLOOD COUNT 7.4 10^3/ul (4.8-10.8)
[2016-09-08 11:36] LABS: CALCIUM 7.2 mg/dl (8.4-10.2); CREATININE 0.69 mg/dl (0.61-1.24); POTASSIUM 3.5 mmol/L (3.5-5.1)
--- NOTE | 2016-09-08 12:29 | PN ---
Date/Time of Note Date/Time of Note DATE: 09/08/16 TIME: 12:22 Assessment/Plan VTE Prophylaxis VTE Prophylaxis Intervention: ambulation Lines/Catheters [facility] (from [facility] PICC Line Central line still needed: Yes Urinary Cath still in place: No Assessment/Plan Assessment/Plan * Nausea/vomiting controlled EGD 09/08/2016 Severe erosive esophagitis R/O opportunistic infection Gastritis R/O H pylori infection * Anemia Colonoscopy polyp ascending colon * History of HIV * History of CVA Plan will await biopsy result Reglan 10 mg q6 for nausea/vomiting continue present management Subjective 24 Hr Interval Summary Free Text/Dictation * Course reviewed with RN * Patient seen and examined * EGD severe erosive esophagitis r/o Opportunistic infection Gastritis R/O H pylori infection * no nausea /vomiting Exam/Review of Systems Vital Signs Vitals Vital Signs Date Time Temp Pulse Resp B/P Pulse Ox O2 Delivery O2 Flow Rate FiO2 09/08/16 08:27 97.4 95 18 124/73 100 09/07/16 17:54 Room Air 09/04/16 14:08 2.0 Intake and Output 09/07/16 09/07/16 09/08/16 15:00 23:00 07:00 Intake Total 50 ml 910 ml 860 ml Output Total 400 ml Balance 50 ml 910 ml 460 ml Exam Constitutional: alert, frail Head: normocephalic Eyes: nl conjunctiva, nl sclera Neck: non-tender, supple Respiratory: clear to auscultation, diminished breath sounds, normal air movement Cardiovascular: nl pulses, regular rate and rhythm Gastrointestinal: soft Musculoskeletal: nl extremities to inspection Results Result Diagram: 09/08/16 0835 09/08/16 0835 Results 24 hrs Laboratory Tests Test 09/08/16 08:35 White Blood Count 7.4 Red Blood Count 2.30 L Hemoglobin 7.6 L Hematocrit 23.3 L Mean Corpuscular Volume 101.3 H Mean Corpuscular Hemoglobin 33.0 Mean Corpuscular Hemoglobin Concent 32.6 Red Cell Distribution Width 15.9 H Platelet Count 196 # Mean Platelet Volume 10.1 Neutrophils % 66.8 Lymphocytes % 22.5 Monocytes % 8.5 Eosinophils % 1.1 Basophils % 0.4 Nucleated Red Blood Cells % 0.0 Neutrophils # 4.9 Lymphocytes # 1.7 Monocytes # 0.6 Eosinophils # 0.1 Basophils # 0.0 Nucleated Red Blood Cells # 0.0 Sodium Level 141 Potassium Level 3.5 Chloride Level 111 H Carbon Dioxide Level 22 Anion Gap 12 Blood Urea Nitrogen 7 Creatinine 0.69 Glucose Level 92 Calcium Level 7.2 L Medications Medications Current Medications Ondansetron HCl (Zofran Inj) 4 mg Q6H PRN IV NAUSEA AND/OR VOMITING Last administered on 09/07/16 11:12; Admin Dose 4 MG; Start 09/04/16 at 16:30 Acetaminophen (Tylenol Tab) 650 mg Q6H PRN PO PAIN LEVEL 1-3 OR FEVER; Start at 16:30 Acetaminophen/ Hydrocodone Bitart ([place] (5/325)) 1 tab Q6H PRN PO MODERATE PAIN LEVEL 4-6 Last administered on 09/05/16 18:30; Admin Dose 1 TAB; Start at 16:30 Morphine Sulfate (morphine) 2 mg Q4H PRN IV SEVERE PAIN LEVEL 7-10 Last administered on 09/08/16 10:27; Admin Dose 2 MG; Start 09/04/16 at 16:30 Docusate Sodium (Colace) 100 mg Q12H PRN PO CONSTIPATION Last administered on 08:25; Admin Dose 100 MG; Start 09/04/16 at 16:30 Magnesium Hydroxide (Milk Of Mag) 30 ml DAILY PRN PO CONSTIPATION; Start at 16:30 Sodium Biphosphate/ Sodium Phosphate (Fleet Enema) 133 ml DAILY PRN [place] CONSTIPATION; Start 09/04/16 at 16:30 Heparin Sodium (Porcine) (Heparin (5000 Units/0.5 ml)) 5,000 unit Q12 SC Last administered on 09/08/16 08:11; Admin Dose 5,000 UNIT; Start 09/04/16 at 21:00 Lorazepam 0.5 mg 0.5 mg Q6H PRN IV ANXIETY; Start 09/04/16 at 16:30 Sodium Chloride (NS) 1,000 ml @ 100 mls/hr Q10H IV Last administered on 08:10; Admin Dose 100 MLS/HR; Start 09/04/16 at 16:02 Hydralazine HCl (Apresoline) 10 mg Q6H PRN IV ELEVATED BLOOD PRESSURE; Start at 16:30 Nitroglycerin (Nitroglycerin (Sl Tab) 0.4 Mg) 1 tab Q5M PRN SL ANGINA; Start at 16:30 Lorazepam (Ativan) 1 mg Q6H PRN PO ANXIETY Last administered on 09/06/16 11:14 ; Admin Dose 1 MG; Start 09/06/16 at 10:00 IV Flush (NS 10 ml) 10 ml PRN PRN IV IV PROTOCOL Last administered on 15:08; Admin Dose 10 ML; Start 09/06/16 at 15:30 Zolpidem Tartrate (Ambien) 10 mg HS PRN PO INSOMNIA Last administered on 21:11; Admin Dose 10 MG; Start 09/07/16 at 02:30 Prochlorperazine (Compazine Inj) 5 mg Q6H PRN IV NAUSEA AND/OR VOMITING Last administered on 09/07/16 15:08; Admin Dose 5 MG; Start 09/07/16 at 14:30 Pantoprazole (Protonix Tab) 40 mg BID PO Last administered on 09/08/16 08:10; Admin Dose 40 MG; Start 09/07/16 at 21:00 Metoclopramide HCl (Reglan) 10 mg Q8 PO Last administered on 09/08/16 05:48; Admin Dose 10 MG; Start 09/07/16 at 22:00 JOSE NANCE MD September 08, 2016 12:29
[2016-09-08] MEDS: HYDROCODONE/APAP (5/325) TAB PO PRN (13:21)
--- NOTE | 2016-09-08 15:07 | GILP ---
DATE OF PROCEDURE: 09/07/2016 PROCEDURE: Esophagogastroduodenoscopy with biopsy. PREMEDICATION: Monitored anesthesia care by anesthesiologist. SURGEON: Jose Sosa MD. INSTRUMENT USED: Olympus panendoscope. TECHNIQUE: After informed consent, with the patient/relatives understanding the procedure, its indic ations, potential risks and complications, including but not limited to: allergic reaction, bleeding , perforation or infection, and after all pertinent questions were answered to the patients satisfac tion, the patient/relatives signed witnessed informed consent. Following this, premedication was administered slowly IV push under careful cardiovascular and respi ratory monitoring with pulse oximetry, automatic blood pressure and presser cotton ginning. Once the sedative effect was achieved the patient was place in the left lateral decubitus, the panen doscope was introduced and advanced under visual control. Careful examination of the upper gastrointestinal tract, both on insertion as well as withdrawal of the instrument disclosed the following findings: ESOPHAGUS: The distal esophagus revealed severe erythema, edema and erosion of the mucosa. There i s some exudate suggestive of possibly opportunistic infection. Biopsies were obtained. STOMACH: Upon entrance to the stomach air was insufflated, the gastric harris distended normally. T here is erythema and edema of the mucosa of a moderate degree. Biopsies were obtained to rule out H . pylori infection. PYLORUS: The pylorus appears patent and within normal limits, with no evidence of gastric outlet obs truction. DUODENUM: The duodenal mucosa was carefully examined in the duodenal bulb as well as the second port ion of the duodenum and appears unremarkable with no evidence of duodenitis, ulcer or neoplasm. The instrument was then withdrawn, the patient tolerated the procedure well and was transfer out of the endoscopy suite awake, and in good condition to continue recovery under observation IMPRESSION: 1. Severe erosive esophagitis. 2. Rule out opportunistic infection. Biopsies obtained. 3. Gastritis, rule out Helicobacter pylori infection, biopsies obtained. PLAN: 1. The patient will be treated with PPI b.i.d., Reglan 10 mg t.i.d. 2. Pathology will be reviewed as soon as available. Further recommendation will depend on the gayathri ent's clinical course as well as review of biopsies. Dictated By: JOSE RICH Conf#: [id number] DID#: [id number] CC: JOSE SOSA;*EndCC*
--- NOTE | 2016-09-08 15:42 | PN ---
Date/Time of Note Date/Time of Note DATE: 09/08/16 TIME: 15:38 Assessment/Plan VTE Prophylaxis VTE Prophylaxis Intervention: heparin Lines/Catheters IV Catheter Type (from Nrsg): PICC Line Central line still needed: Yes Urinary Cath still in place: No Assessment/Plan Chief Complaint/Hosp Course Assessment/Plan: 50 M with: 1. Intractable nausea, s/p EDG - severe erosive esophagitis + gastritis. - PPI, reglan, f/u GI rec's 2. Acute bronchitis, negative CXR - levaquin 3. Human immunodeficiency virus - CD4 count = 532, viral load = 2.6 (elevated) - resume HIV medications when list faxed from clinic (pending) - consider ID consult - for weakness - order diet consult + diet supplements - consider marinol vs megace as well 4. History of cerebrovascular accident with left-sided residual weakness. - monitor 5. Bipolar/depression. stable 6. Hypokalemia. corrected 7. Normocytic anemia, likely anemia of chronic disease. 8. DVT prophylaxis: heparin Problems: Subjective 24 Hr Interval Summary Free Text/Dictation Pt had EGD yesterday. Exam/Review of Systems Vital Signs Vitals Vital Signs Date Time Temp Pulse Resp B/P Pulse Ox O2 Delivery O2 Flow Rate FiO2 09/08/16 08:27 97.4 95 18 124/73 100 09/07/16 17:54 Room Air 09/04/16 14:08 2.0 Intake and Output 09/07/16 09/07/16 09/08/16 15:00 23:00 07:00 Intake Total 50 ml 910 ml 860 ml Output Total 400 ml Balance 50 ml 910 ml 460 ml Exam Constitutional: alert, oriented, well developed Psych: nl mood/affect, no complaints Head: atraumatic, normocephalic Eyes: EOMI, PERRL, nl conjunctiva, nl lids, nl sclera ENMT: nl external ears & nose, nl lips & teeth, nl nasal mucosa & septum Neck: non-tender, supple Respiratory: clear to auscultation, normal air movement, No congested cough, No crackles/rales, No diminished breath sounds, No intercostal retraction, No labored breathing, No other, No respirations, No tactile fremitus, No wheezing Cardiovascular: nl pulses, regular rate and rhythm, No S3, No S4, No bruits, No diastolic murmur, No edema, No gallop, No irregular rhythm, No jugular venous distention (JVD), No murmurs/extra sounds, No other, No rub, No systolic murmur Gastrointestinal: nl liver, spleen, non-tender, soft, No ascites, No bowel sounds, No distended, No firm, No hepatomegaly, No mass , No other, No rebound or guarding, No splenomegaly, No surgical scars, No tender Musculoskeletal: nl extremities to inspection Extremities: normal pulses, No calf tenderness, No clubbing, No cyanosis, No edema, No other, No palpable cord, No pitting pedal edema, No tenderness Neurological: ROOM SERVICE WAITER/WAITRESS II-XII intact, nl mental status, nl speech, nl strength Skin: nl turgor Results Result Diagram: 09/08/1683409/08/1635 Results 24 hrs Laboratory Tests Test 09/08/16 08:35 White Blood Count 7.4 Red Blood Count 2.30 L Hemoglobin 7.6 L Hematocrit 23.3 L Mean Corpuscular Volume 101.3 H Mean Corpuscular Hemoglobin 33.0 Mean Corpuscular Hemoglobin Concent 32.6 Red Cell Distribution Width 15.9 H Platelet Count 196 # Mean Platelet Volume 10.1 Neutrophils % 66.8 Lymphocytes % 22.5 Monocytes % 8.5 Eosinophils % 1.1 Basophils % 0.4 Nucleated Red Blood Cells % 0.0 Neutrophils # 4.9 Lymphocytes # 1.7 Monocytes # 0.6 Eosinophils # 0.1 Basophils # 0.0 Nucleated Red Blood Cells # 0.0 Sodium Level 141 Potassium Level 3.5 Chloride Level 111 H Carbon Dioxide Level 22 Anion Gap 12 Blood Urea Nitrogen 7 Creatinine 0.69 Glucose Level 92 Calcium Level 7.2 L Medications Medications Current Medications Ondansetron HCl (Zofran Inj) 4 mg Q6H PRN IV NAUSEA AND/OR VOMITING Last administered on 09/07/16 11:12; Admin Dose 4 MG; Start 09/04/16 at 16:30 Acetaminophen (Tylenol Tab) 650 mg Q6H PRN PO PAIN LEVEL 1-3 OR FEVER; Start at 16:30 Acetaminophen/ Hydrocodone Bitart ([place] (5/325)) 1 tab Q6H PRN PO MODERATE PAIN LEVEL 4-6 Last administered on 09/08/16 13:21; Admin Dose 1 TAB; Start at 16:30 Morphine Sulfate (morphine) 2 mg Q4H PRN IV SEVERE PAIN LEVEL 7-10 Last administered on 09/08/16 14:29; Admin Dose 2 MG; Start 09/04/16 at 16:30 Docusate Sodium (Colace) 100 mg Q12H PRN PO CONSTIPATION Last administered on 08:25; Admin Dose 100 MG; Start 09/04/16 at 16:30 Magnesium Hydroxide (Milk Of Mag) 30 ml DAILY PRN PO CONSTIPATION; Start at 16:30 Sodium Biphosphate/ Sodium Phosphate (Fleet Enema) 133 ml DAILY PRN [place] CONSTIPATION; Start 09/04/16 at 16:30 Heparin Sodium (Porcine) (Heparin (5000 Units/0.5 ml)) 5,000 unit Q12 SC Last administered on 09/08/16 08:11; Admin Dose 5,000 UNIT; Start 09/04/16 at 21:00 Lorazepam 0.5 mg 0.5 mg Q6H PRN IV ANXIETY; Start 09/04/16 at 16:30 Sodium Chloride (NS) 1,000 ml @ 100 mls/hr Q10H IV Last administered on 08:10; Admin Dose 100 MLS/HR; Start 09/04/16 at 16:02 Hydralazine HCl (Apresoline) 10 mg Q6H PRN IV ELEVATED BLOOD PRESSURE; Start at 16:30 Nitroglycerin (Nitroglycerin (Sl Tab) 0.4 Mg) 1 tab Q5M PRN SL ANGINA; Start at 16:30 Lorazepam (Ativan) 1 mg Q6H PRN PO ANXIETY Last administered on 09/06/16 11:14 ; Admin Dose 1 MG; Start 09/06/16 at 10:00 IV Flush (NS 10 ml) 10 ml PRN PRN IV IV PROTOCOL Last administered on 15:08; Admin Dose 10 ML; Start 09/06/16 at 15:30 Zolpidem Tartrate (Ambien) 10 mg HS PRN PO INSOMNIA Last administered on 21:11; Admin Dose 10 MG; Start 09/07/16 at 02:30 Prochlorperazine (Compazine Inj) 5 mg Q6H PRN IV NAUSEA AND/OR VOMITING Last administered on 09/07/16 15:08; Admin Dose 5 MG; Start 09/07/16 at 14:30 Pantoprazole (Protonix Tab) 40 mg BID PO Last administered on 09/08/16 08:10; Admin Dose 40 MG; Start 09/07/16 at 21:00 Metoclopramide HCl (Reglan) 10 mg Q8 PO Last administered on 09/08/16 14:29; Admin Dose 10 MG; Start 09/07/16 at 22:00 PANCHO EMERSON September 08, 2016 15:42
[2016-09-08] MEDS ORDERED: BUPR75TA9 PO ×2 (18:21→18:47)
[2016-09-08] MEDS ORDERED: FLUT16SP17 NASAL (18:47)
[2016-09-08] MEDS ORDERED: EMTR1TAB11 PO (18:47)
[2016-09-08] MEDS ORDERED: ESCI10TA48 PO (18:47)
[2016-09-08] MEDS ORDERED: LYR75 PO (18:47)
[2016-09-08] MEDS ORDERED: QUET300T5 PO (18:47)
[2016-09-08] MEDS ORDERED: ZOLP10TA5 PO (18:47)
[2016-09-08] MEDS ORDERED: MOME13HF3 INHALATION (18:47)
[2016-09-08] MEDS ORDERED: LEVE10006 PO (19:05)
[2016-09-08 20:10] VITALS: BP 130/86; RESP 19
[2016-09-09] MEDS: SOD CHLORIDE 0.9% 1,000 ML IV SCH ×3 (04:17→22:19)
[2016-09-09] MEDS: morphine 2 MG INJ IV PRN ×5 (04:18→22:24)
--- NOTE | 2016-09-09 05:19 | GILP ---
DATE OF PROCEDURE: 09/07/2016 PROCEDURE: Colonoscopy with polyp ablation. BRIEF HISTORY AND INDICATIONS: The patient is being evaluated for colorectal cancer screening. PREMEDICATION: Monitored anesthesia care by anesthesiologist. SURGEON: Jose Sosa MD INSTRUMENT USED: Olympus colonoscope. PREPARATION: Adequate. TECHNIQUE: After informed consent, with the patient/relatives understanding the procedure, its indic ations potential risks and complications, including but not limited to: allergic reaction, bleeding, perforation, infection, missed lesions and after all pertinent questions were answered to the patie nt's satisfaction, the patient/relatives signed the witnessed informed consent. Following this, premedication was administered slowly IV push by under careful cardiovascular and re spiratory monitoring with pulse oximetry, automatic blood pressure and rug sample beveler. Once the sedativ e effect was achieved, the patient was placed in the left lateral decubitus position, digital rectal examination was performed. The colonoscope was then introduced and advanced under visual control th roughout all segments of the colon including: the rectum, sigmoid, descending colon, splenic flexure , transverse colon, hepatic flexure, ascending colon and finally reaching the cecum which was clearl y identified by transillumination, finger indentation and the ileocecal valve. Careful examination o f the mucosa of the lower gastrointestinal tract both on insertion as well as withdrawal of the inst rument disclosed the following findings: Rectal Examination: No evidence of perirectal disease, no masses. Colonic Mucosa: The colonic mucosa is unremarkable with the exception of a 3 mm polyp in the mid as cending colon. Polyp was ablated with biopsy forceps. The ileocecal valve was clearly identified a nd appears unremarkable. The instrument was withdrawn, reexamining the mucosa in detail. No additional abnormalities were no cyndi with the exception of moderate sized internal hemorrhoids. The patient tolerated the procedure well and was transferred out of the Endoscopy Suite awake and in good condition to continue recovery under observation. IMPRESSION: 1. A 3 mm polyp in the ascending colon, ablated. 2. Moderate sized internal hemorrhoids. PLAN: Pathology will be reviewed as soon as available. Further recommendation will depend on the p atient's clinical course. Surveillance colonoscopy in 5 years is recommended. Dictated By: JOSE SOSA MS/NITHIN Conf#: [id number] DID#: [id number]
[2016-09-09] MEDS: METOCLOPRAMIDE 10 MG TAB PO SCH ×3 (05:31→22:15)
[2016-09-09 06:30] LABS: ADD SCAN DIFF NO
[2016-09-09 06:50] LABS: BASOPHILS % 0.5 % (0.0-2.0); EOSINOPHILS # 0.1 10^3/ul (0.0-0.5); HEMATOCRIT 24.4 % (42.0-52.0); LYMPHOCYTES # 1.7 10^3/ul (0.8-2.9); LYMPHOCYTES % 25.4 % (15.0-51.0); MEAN CORPUSCULAR HEMOGLOBIN 32.9 pg (29.0-33.0); MEAN CORPUSCULAR HGB CONC 32.8 g/dl (32.0-37.0); MEAN CORPUSCULAR VOLUME 100.4 fl (82.0-101.0); MEAN PLATELET VOLUME 10.4 fl (7.4-10.4); MONOCYTE # 0.7 10^3/ul (0.3-0.9); NEUTROPHILS % 61.6 % (39.0-77.0); PLATELET COUNT 182 10^3/UL (140-415); RED BLOOD COUNT 2.43 10^6/ul (4.70-6.10); RED CELL DISTRIBUTION WIDTH 15.7 % (11.5-14.5); WHITE BLOOD COUNT 6.5 10^3/ul (4.8-10.8)
[2016-09-09 06:55] LABS: CALCIUM 7.2 mg/dl (8.4-10.2); CREATININE 0.61 mg/dl (0.61-1.24); POTASSIUM 3.6 mmol/L (3.5-5.1)
[2016-09-09 07:47] VITALS: BP 113/66; RESP 16
[2016-09-09] MEDS: PANTOPRAZOLE (EC) 40 MG TAB PO SCH ×2 (08:39→20:10)
[2016-09-09] MEDS: EMTRICITABINE/TENOFOVIR TAB PO SCH (08:39)
[2016-09-09] MEDS: HEPARIN 5,000 UNIT/0.5 ML VIAL SC SCH ×2 (08:40→20:06)
[2016-09-09] MEDS: RITONAVIR 100 MG CAP PO SCH (08:43)
[2016-09-09] MEDS ORDERED: SOD CHLORIDE 0.9% 250 ML IV* ONE (12:20)
--- NOTE | 2016-09-09 12:23 | PN ---
Date/Time of Note Date/Time of Note DATE: 09/09/16 TIME: 12:21 Assessment/Plan VTE Prophylaxis VTE Prophylaxis Intervention: SCD's Lines/Catheters IV Catheter Type (from Nrs): PICC Line Central line still needed: Yes Urinary Cath still in place: No Assessment/Plan Assessment/Plan Nausea/vomiting controlled EGD 09/08/2016 Severe erosive esophagitis R/O opportunistic infection Gastritis R/O H pylori infection * Anemia Colonoscopy polyp ascending colon * History of HIV * History of CVA Plan will await biopsy result Reglan 10 mg q6 for nausea/vomiting continue present management Subjective 24 Hr Interval Summary Free Text/Dictation * Course reviewed with RN * Patient seen and examined * No nausea and vomiting Exam/Review of Systems Vital Signs Vitals Vital Signs Date Time Temp Pulse Resp B/P Pulse Ox O2 Delivery O2 Flow Rate FiO2 09/09/16 07:47 98.5 86 16 113/66 95 09/07/16 17:54 Room Air Intake and Output 09/08/16 09/08/16 09/09/16 15:00 23:00 07:00 Intake Total 1320 ml 1520 ml Output Total 500 ml 975 ml Balance 820 ml 545 ml Exam Constitutional: alert, frail Eyes: nl conjunctiva, nl sclera Neck: non-tender, supple Respiratory: clear to auscultation, normal air movement Cardiovascular: nl pulses, regular rate and rhythm Gastrointestinal: nl liver, spleen, non-tender, soft Musculoskeletal: nl extremities to inspection Results Result Diagram: 09/09/16 0430 09/09/16 0500 Results 24 hrs Laboratory Tests Test 09/09/16 04:30 09/09/16 05:00 White Blood Count 6.5 Red Blood Count 2.43 L Hemoglobin 8.0 L Hematocrit 24.4 L Mean Corpuscular Volume 100.4 Mean Corpuscular Hemoglobin 32.9 Mean Corpuscular Hemoglobin Concent 32.8 Red Cell Distribution Width 15.7 H Platelet Count 182 Mean Platelet Volume 10.4 Neutrophils % 61.6 Lymphocytes % 25.4 Monocytes % 10.0 Eosinophils % 2.0 Basophils % 0.5 Nucleated Red Blood Cells % 0.0 Neutrophils # 4.0 Lymphocytes # 1.7 Monocytes # 0.7 Eosinophils # 0.1 Basophils # 0.0 Nucleated Red Blood Cells # 0.0 Sodium Level 140 Potassium Level 3.6 Chloride Level 110 Carbon Dioxide Level 23 Anion Gap 11 Blood Urea Nitrogen 4 L Creatinine 0.61 Glucose Level 88 Calcium Level 7.2 L Medications Medications Current Medications Ondansetron HCl (Zofran Inj) 4 mg Q6H PRN IV NAUSEA AND/OR VOMITING Last administered on 09/07/16 11:12; Admin Dose 4 MG; Start 09/04/16 at 16:30 Acetaminophen (Tylenol Tab) 650 mg Q6H PRN PO PAIN LEVEL 1-3 OR FEVER; Start at 16:30 Acetaminophen/ Hydrocodone Bitart ([place] (5/325)) 1 tab Q6H PRN PO MODERATE PAIN LEVEL 4-6 Last administered on 09/08/16 13:21; Admin Dose 1 TAB; Start at 16:30 Morphine Sulfate (morphine) 2 mg Q4H PRN IV SEVERE PAIN LEVEL 7-10 Last administered on 09/09/16 10:37; Admin Dose 2 MG; Start 09/04/16 at 16:30 Docusate Sodium (Colace) 100 mg Q12H PRN PO CONSTIPATION Last administered on 08:25; Admin Dose 100 MG; Start 09/04/16 at 16:30 Magnesium Hydroxide (Milk Of Mag) 30 ml DAILY PRN PO CONSTIPATION; Start at 16:30 Sodium Biphosphate/ Sodium Phosphate (Fleet Enema) 133 ml DAILY PRN [place] CONSTIPATION; Start 09/04/16 at 16:30 Heparin Sodium (Porcine) (Heparin (5000 Units/0.5 ml)) 5,000 unit Q12 SC Last administered on 09/09/16 08:40; Admin Dose 5,000 UNIT; Start 09/04/16 at 21:00 Lorazepam 0.5 mg 0.5 mg Q6H PRN IV ANXIETY; Start 09/04/16 at 16:30 Sodium Chloride (NS) 1,000 ml @ 100 mls/hr Q10H IV Last administered on 04:17; Admin Dose 100 MLS/HR; Start 09/04/16 at 16:02 Hydralazine HCl (Apresoline) 10 mg Q6H PRN IV ELEVATED BLOOD PRESSURE; Start at 16:30 Nitroglycerin (Nitroglycerin (Sl Tab) 0.4 Mg) 1 tab Q5M PRN SL ANGINA; Start at 16:30 Lorazepam (Ativan) 1 mg Q6H PRN PO ANXIETY Last administered on 09/06/16 11:14 ; Admin Dose 1 MG; Start 09/06/16 at 10:00 IV Flush (NS 10 ml) 10 ml PRN PRN IV IV PROTOCOL Last administered on 15:08; Admin Dose 10 ML; Start 09/06/16 at 15:30 Zolpidem Tartrate (Ambien) 10 mg HS PRN PO INSOMNIA Last administered on 21:11; Admin Dose 10 MG; Start 09/07/16 at 02:30 Prochlorperazine (Compazine Inj) 5 mg Q6H PRN IV NAUSEA AND/OR VOMITING Last administered on 09/07/16 15:08; Admin Dose 5 MG; Start 09/07/16 at 14:30 Pantoprazole (Protonix Tab) 40 mg BID PO Last administered on 09/09/16 08:39; Admin Dose 40 MG; Start 09/07/16 at 21:00 Metoclopramide HCl (Reglan) 10 mg Q8 PO Last administered on 09/09/16 05:31; Admin Dose 10 MG; Start 09/07/16 at 22:00 Emtricitabine/ Tenofovir (Truvada) 1 tab DAILY PO Last administered on 08:39; Admin Dose 1 TAB; Start 09/09/16 at 09:00 Atazanavir (Reyataz) 300 mg WeFr@09 PO ; Start 09/12/16 at 09:00 Ritonavir (Norvir) 100 mg DAILY PO Last administered on 09/09/16 08:43; Admin Dose 100 MG; Start 09/09/16 at 09:00 JOSE NANCE MD September 09, 2016 12:23
--- NOTE | 2016-09-09 12:49 | PN ---
Date/Time of Note Date/Time of Note DATE: 09/09/16 TIME: 12:46 Assessment/Plan VTE Prophylaxis VTE Prophylaxis Intervention: heparin Lines/Catheters IV Catheter Type (from Nrsg): PICC Line Central line still needed: Yes Urinary Cath still in place: No Assessment/Plan Chief Complaint/Hosp Course Assessment/Plan: 50 M with: 1. Intractable nausea, s/p EDG - severe erosive esophagitis + gastritis. - PPI, reglan, f/u GI rec's, f/u biopsy results 2. Acute bronchitis, negative CXR - levaquin 3. Human immunodeficiency virus - CD4 count = 532, viral load = 2.6 (elevated) - continue HAART meds. - consider ID consult - for weakness - f/u diet consult + diet supplements - will start megace BID today. 4. History of cerebrovascular accident with left-sided residual weakness. - monitor 5. Bipolar/depression. stable 6. Hypokalemia. corrected 7. Normocytic anemia, likely anemia of chronic disease. 8. DVT prophylaxis: heparin Problems: Subjective 24 Hr Interval Summary Free Text/Dictation Pt still with some poor appetite. Started on HAART meds now (list from PMD received). Exam/Review of Systems Vital Signs Vitals Vital Signs Date Time Temp Pulse Resp B/P Pulse Ox O2 Delivery O2 Flow Rate FiO2 09/09/16 07:47 98.5 86 16 113/66 95 09/07/16 17:54 Room Air Intake and Output 09/08/16 09/08/16 09/09/16 15:00 23:00 07:00 Intake Total 1320 ml 1520 ml Output Total 500 ml 975 ml Balance 820 ml 545 ml Exam Constitutional: alert, oriented, well developed Psych: nl mood/affect, no complaints Head: atraumatic, normocephalic Eyes: EOMI, PERRL, nl conjunctiva, nl lids, nl sclera ENMT: nl external ears & nose, nl lips & teeth, nl nasal mucosa & septum Neck: non-tender, supple Respiratory: clear to auscultation, normal air movement, No congested cough, No crackles/rales, No diminished breath sounds, No intercostal retraction, No labored breathing, No other, No respirations, No tactile fremitus, No wheezing Cardiovascular: nl pulses, regular rate and rhythm, No S3, No S4, No bruits, No diastolic murmur, No edema, No gallop, No irregular rhythm, No jugular venous distention (JVD), No murmurs/extra sounds, No other, No rub, No systolic murmur Gastrointestinal: nl liver, spleen, non-tender, soft, No ascites, No bowel sounds, No distended, No firm, No hepatomegaly, No mass , No other, No rebound or guarding, No splenomegaly, No surgical scars, No tender Musculoskeletal: nl extremities to inspection Extremities: normal pulses, No calf tenderness, No clubbing, No cyanosis, No edema, No other, No palpable cord, No pitting pedal edema, No tenderness Neurological: MEDICAL LIBRARY ASSISTANT II-XII intact, nl mental status, nl speech, nl strength Results Result Diagram: 09/09/16 0430 09/09/16 0500 Results 24 hrs Laboratory Tests Test 09/09/16 04:30 09/09/16 05:00 White Blood Count 6.5 Red Blood Count 2.43 L Hemoglobin 8.0 L Hematocrit 24.4 L Mean Corpuscular Volume 100.4 Mean Corpuscular Hemoglobin 32.9 Mean Corpuscular Hemoglobin Concent 32.8 Red Cell Distribution Width 15.7 H Platelet Count 182 Mean Platelet Volume 10.4 Neutrophils % 61.6 Lymphocytes % 25.4 Monocytes % 10.0 Eosinophils % 2.0 Basophils % 0.5 Nucleated Red Blood Cells % 0.0 Neutrophils # 4.0 Lymphocytes # 1.7 Monocytes # 0.7 Eosinophils # 0.1 Basophils # 0.0 Nucleated Red Blood Cells # 0.0 Sodium Level 140 Potassium Level 3.6 Chloride Level 110 Carbon Dioxide Level 23 Anion Gap 11 Blood Urea Nitrogen 4 L Creatinine 0.61 Glucose Level 88 Calcium Level 7.2 L Medications Medications Current Medications Ondansetron HCl (Zofran Inj) 4 mg Q6H PRN IV NAUSEA AND/OR VOMITING Last administered on 09/07/16 11:12; Admin Dose 4 MG; Start 09/04/16 at 16:30 Acetaminophen (Tylenol Tab) 650 mg Q6H PRN PO PAIN LEVEL 1-3 OR FEVER; Start at 16:30 Acetaminophen/ Hydrocodone Bitart ([place] (5/325)) 1 tab Q6H PRN PO MODERATE PAIN LEVEL 4-6 Last administered on 09/08/16 13:21; Admin Dose 1 TAB; Start at 16:30 Morphine Sulfate (morphine) 2 mg Q4H PRN IV SEVERE PAIN LEVEL 7-10 Last administered on 09/09/16 10:37; Admin Dose 2 MG; Start 09/04/16 at 16:30 Docusate Sodium (Colace) 100 mg Q12H PRN PO CONSTIPATION Last administered on 08:25; Admin Dose 100 MG; Start 09/04/16 at 16:30 Magnesium Hydroxide (Milk Of Mag) 30 ml DAILY PRN PO CONSTIPATION; Start at 16:30 Sodium Biphosphate/ Sodium Phosphate (Fleet Enema) 133 ml DAILY PRN [place] CONSTIPATION; Start 09/04/16 at 16:30 Heparin Sodium (Porcine) (Heparin (5000 Units/0.5 ml)) 5,000 unit Q12 SC Last administered on 09/09/16 08:40; Admin Dose 5,000 UNIT; Start 09/04/16 at 21:00 Lorazepam 0.5 mg 0.5 mg Q6H PRN IV ANXIETY; Start 09/04/16 at 16:30 Sodium Chloride (NS) 1,000 ml @ 100 mls/hr Q10H IV Last administered on 04:17; Admin Dose 100 MLS/HR; Start 09/04/16 at 16:02 Hydralazine HCl (Apresoline) 10 mg Q6H PRN IV ELEVATED BLOOD PRESSURE; Start at 16:30 Nitroglycerin (Nitroglycerin (Sl Tab) 0.4 Mg) 1 tab Q5M PRN SL ANGINA; Start at 16:30 Lorazepam (Ativan) 1 mg Q6H PRN PO ANXIETY Last administered on 09/06/16 11:14 ; Admin Dose 1 MG; Start 09/06/16 at 10:00 IV Flush (NS 10 ml) 10 ml PRN PRN IV IV PROTOCOL Last administered on 15:08; Admin Dose 10 ML; Start 09/06/16 at 15:30 Zolpidem Tartrate (Ambien) 10 mg HS PRN PO INSOMNIA Last administered on 21:11; Admin Dose 10 MG; Start 09/07/16 at 02:30 Prochlorperazine (Compazine Inj) 5 mg Q6H PRN IV NAUSEA AND/OR VOMITING Last administered on 09/07/16 15:08; Admin Dose 5 MG; Start 09/07/16 at 14:30 Pantoprazole (Protonix Tab) 40 mg BID PO Last administered on 09/09/16 08:39; Admin Dose 40 MG; Start 09/07/16 at 21:00 Metoclopramide HCl (Reglan) 10 mg Q8 PO Last administered on 09/09/16 05:31; Admin Dose 10 MG; Start 09/07/16 at 22:00 Emtricitabine/ Tenofovir (Truvada) 1 tab DAILY PO Last administered on 08:39; Admin Dose 1 TAB; Start 09/09/16 at 09:00 Atazanavir (Reyataz) 300 mg WeFr@09 PO ; Start 09/12/16 at 09:00 Ritonavir (Norvir) 100 mg DAILY PO Last administered on 09/09/16 08:43; Admin Dose 100 MG; Start 09/09/16 at 09:00 Megestrol Acetate (Megace) 40 mg BID PO ; Start 09/09/16 at 12:30 PANCHO EMERSON September 09, 2016 12:49
[2016-09-09] MEDS: MEGESTROL 40 MG TAB PO SCH ×2 (13:09→20:10)
[2016-09-09] MEDS ORDERED: NORV100 PO (13:56)
[2016-09-09] MEDS ORDERED: ATAZ300C5 PO (13:56)
[2016-09-09 20:05] VITALS: BP 140/91; RESP 17
[2016-09-09 21:19] VITALS: BP 132/85
[2016-09-10] MEDS: morphine 2 MG INJ IV PRN ×5 (04:01→21:36)
[2016-09-10] MEDS: METOCLOPRAMIDE 10 MG TAB PO SCH ×3 (05:14→21:32)
[2016-09-10 05:17] LABS: ADD SCAN DIFF NO
[2016-09-10 05:21] LABS: BASOPHILS % 0.5 % (0.0-2.0); EOSINOPHILS # 0.2 10^3/ul (0.0-0.5); EOSINOPHILS % 3.5 % (0.0-7.0); HEMATOCRIT 26.6 % (42.0-52.0); HEMOGLOBIN 8.7 g/dl (14.0-18.0); LYMPHOCYTES # 1.2 10^3/ul (0.8-2.9); LYMPHOCYTES % 21.6 % (15.0-51.0); MEAN CORPUSCULAR HEMOGLOBIN 31.2 pg (29.0-33.0); MEAN CORPUSCULAR HGB CONC 32.7 g/dl (32.0-37.0); MEAN CORPUSCULAR VOLUME 95.3 fl (82.0-101.0); MEAN PLATELET VOLUME 9.9 fl (7.4-10.4); MONOCYTE # 0.6 10^3/ul (0.3-0.9); MONOCYTES % 10.8 % (0.0-11.0); NEUTROPHIL # 3.6 10^3/ul (1.6-7.5); NEUTROPHILS % 63.2 % (39.0-77.0); PLATELET COUNT 160 10^3/UL (140-415); RED BLOOD COUNT 2.79 10^6/ul (4.70-6.10); RED CELL DISTRIBUTION WIDTH 18.1 % (11.5-14.5); WHITE BLOOD COUNT 5.7 10^3/ul (4.8-10.8)
[2016-09-10 05:53] LABS: CREATININE 0.52 mg/dl (0.61-1.24); POTASSIUM 3.1 mmol/L (3.5-5.1)
[2016-09-10 07:30] VITALS: BP 134/78; RESP 16
[2016-09-10] MEDS: RITONAVIR 100 MG CAP PO SCH ×2 (09:00→12:26)
[2016-09-10] MEDS: PANTOPRAZOLE (EC) 40 MG TAB PO SCH ×2 (09:42→20:33)
[2016-09-10] MEDS: EMTRICITABINE/TENOFOVIR TAB PO SCH (09:42)
[2016-09-10] MEDS: HEPARIN 5,000 UNIT/0.5 ML VIAL SC SCH ×2 (09:43→20:34)
[2016-09-10] MEDS: MEGESTROL 40 MG TAB PO SCH ×2 (09:44→20:33)
[2016-09-10] MEDS: SOD CHLORIDE 0.9% 1,000 ML IV SCH ×3 (09:46→23:27)
[2016-09-10] MEDS: POTASSIUM CHLORIDE 20 MEQ POWDER FOR ORAL SOLN PO ONE ×2 (12:27→12:36)
--- NOTE | 2016-09-10 13:13 | PN ---
Date/Time of Note Date/Time of Note DATE: 09/10/16 TIME: 13:11 Assessment/Plan VTE Prophylaxis VTE Prophylaxis Intervention: SCD's Lines/Catheters IV Catheter Type (from Nrs): PICC Line Central line still needed: Yes Urinary Cath still in place: No Assessment/Plan Assessment/Plan Nausea/vomiting controlled EGD 09/08/2016 Severe erosive esophagitis R/O opportunistic infection Gastritis R/O H pylori infection * Anemia Colonoscopy polyp ascending colon * History of HIV * History of CVA Plan will await biopsy result Reglan 10 mg q6 for nausea/vomiting continue present management Subjective 24 Hr Interval Summary Free Text/Dictation * Course reviewed with RN * Patient seen and examined * No nausea or vomiting Exam/Review of Systems Vital Signs Vitals Vital Signs Date Time Temp Pulse Resp B/P Pulse Ox O2 Delivery O2 Flow Rate FiO2 09/10/16 07:30 98.2 80 16 134/78 100 09/07/16 17:54 Room Air Intake and Output 09/09/16 09/09/16 09/10/16 15:00 23:00 07:00 Intake Total 900 ml 2220 ml 900 ml Output Total 500 ml 850 ml 1100 ml Balance 400 ml 1370 ml -200 ml Exam Constitutional: alert, frail Neck: non-tender, supple Respiratory: clear to auscultation, diminished breath sounds, normal air movement Cardiovascular: nl pulses, regular rate and rhythm Gastrointestinal: bowel sounds, non-tender, soft Musculoskeletal: nl extremities to inspection Extremities: normal pulses Neurological: nl mental status, nl speech Results Result Diagram: 09/10/16 0449 09/10/16 0449 Results 24 hrs Laboratory Tests Test 09/10/16 04:49 White Blood Count 5.7 Red Blood Count 2.79 L Hemoglobin 8.7 L Hematocrit 26.6 L Mean Corpuscular Volume 95.3 Mean Corpuscular Hemoglobin 31.2 Mean Corpuscular Hemoglobin Concent 32.7 Red Cell Distribution Width 18.1 H Platelet Count 160 Mean Platelet Volume 9.9 Neutrophils % 63.2 Lymphocytes % 21.6 Monocytes % 10.8 Eosinophils % 3.5 Basophils % 0.5 Nucleated Red Blood Cells % 0.0 Neutrophils # 3.6 Lymphocytes # 1.2 Monocytes # 0.6 Eosinophils # 0.2 Basophils # 0.0 Nucleated Red Blood Cells # 0.0 Sodium Level 139 Potassium Level 3.1 L Chloride Level 111 H Carbon Dioxide Level 23 Anion Gap 8 Blood Urea Nitrogen 3 L Creatinine 0.52 L Glucose Level 99 Calcium Level 7.0 L Medications Medications Current Medications Ondansetron HCl (Zofran Inj) 4 mg Q6H PRN IV NAUSEA AND/OR VOMITING Last administered on 09/07/16 11:12; Admin Dose 4 MG; Start 09/04/16 at 16:30 Acetaminophen (Tylenol Tab) 650 mg Q6H PRN PO PAIN LEVEL 1-3 OR FEVER; Start at 16:30 Acetaminophen/ Hydrocodone Bitart ([place] (5/325)) 1 tab Q6H PRN PO MODERATE PAIN LEVEL 4-6 Last administered on 09/08/16 13:21; Admin Dose 1 TAB; Start at 16:30 Morphine Sulfate (morphine) 2 mg Q4H PRN IV SEVERE PAIN LEVEL 7-10 Last administered on 09/10/16 08:43; Admin Dose 2 MG; Start 09/04/16 at 16:30 Docusate Sodium (Colace) 100 mg Q12H PRN PO CONSTIPATION Last administered on 08:25; Admin Dose 100 MG; Start 09/04/16 at 16:30 Magnesium Hydroxide (Milk Of Mag) 30 ml DAILY PRN PO CONSTIPATION; Start at 16:30 Sodium Biphosphate/ Sodium Phosphate (Fleet Enema) 133 ml DAILY PRN [place] CONSTIPATION; Start 09/04/16 at 16:30 Heparin Sodium (Porcine) (Heparin (5000 Units/0.5 ml)) 5,000 unit Q12 SC Last administered on 09/10/16 09:43; Admin Dose 5,000 UNIT; Start 09/04/16 at 21:00 Lorazepam 0.5 mg 0.5 mg Q6H PRN IV ANXIETY; Start 09/04/16 at 16:30 Sodium Chloride (NS) 1,000 ml @ 100 mls/hr Q10H IV Last administered on 09:46; Admin Dose 100 MLS/HR; Start 09/04/16 at 16:02 Hydralazine HCl (Apresoline) 10 mg Q6H PRN IV ELEVATED BLOOD PRESSURE; Start at 16:30 Nitroglycerin (Nitroglycerin (Sl Tab) 0.4 Mg) 1 tab Q5M PRN SL ANGINA; Start at 16:30 Lorazepam (Ativan) 1 mg Q6H PRN PO ANXIETY Last administered on 09/06/16 11:14 ; Admin Dose 1 MG; Start 09/06/16 at 10:00 IV Flush (NS 10 ml) 10 ml PRN PRN IV IV PROTOCOL Last administered on 15:08; Admin Dose 10 ML; Start 09/06/16 at 15:30 Zolpidem Tartrate (Ambien) 10 mg HS PRN PO INSOMNIA Last administered on 21:11; Admin Dose 10 MG; Start 09/07/16 at 02:30 Prochlorperazine (Compazine Inj) 5 mg Q6H PRN IV NAUSEA AND/OR VOMITING Last administered on 09/07/16 15:08; Admin Dose 5 MG; Start 09/07/16 at 14:30 Pantoprazole (Protonix Tab) 40 mg BID PO Last administered on 09/10/16 09:42; Admin Dose 40 MG; Start 09/07/16 at 21:00 Metoclopramide HCl (Reglan) 10 mg Q8 PO Last administered on 09/10/16 05:14; Admin Dose 10 MG; Start 09/07/16 at 22:00 Emtricitabine/ Tenofovir (Truvada) 1 tab DAILY PO Last administered on 09:42; Admin Dose 1 TAB; Start 09/09/16 at 09:00 Atazanavir (Reyataz) 300 mg WeFr@09 PO ; Start 09/12/16 at 09:00 Ritonavir (Norvir) 100 mg DAILY PO Last administered on 09/10/16 12:26; Admin Dose 100 MG; Start 09/09/16 at 09:00 Megestrol Acetate (Megace) 40 mg BID PO Last administered on 09/10/16 09:44; Admin Dose 40 MG; Start 09/09/16 at 12:30 JOSE NANCE MD September 10, 2016 13:13
[2016-09-10] MEDS ORDERED: POTASSIUM CHLORIDE 250 ML IVPB ONE (16:00)
--- NOTE | 2016-09-10 16:55 | PN ---
Date/Time of Note Date/Time of Note DATE: 09/10/16 TIME: 16:53 Assessment/Plan VTE Prophylaxis VTE Prophylaxis Intervention: heparin Lines/Catheters IV Catheter Type (from Nrs): PICC Line Central line still needed: Yes Urinary Cath still in place: No Assessment/Plan Assessment/Plan 1. Intractable nausea, severe esophagitis, follow up with biopsy from EGD 2. Acute bronchitis, negative CXR, on levaquin 3. Human immunodeficiency virus. Per patient, recent CD4 count almost 500 and viral load undetectable. resume medications 4. History of cerebrovascular accident with left-sided residual weakness. 5. Bipolar/depression. stable 6. Hypokalemia. KCL 7. Normocytic anemia, likely anemia of chronic disease. 8. DVT prophylaxis: heparin Subjective 24 Hr Interval Summary Free Text/Dictation better on nausea, still coughs Exam/Review of Systems Vital Signs Vitals Vital Signs Date Time Temp Pulse Resp B/P Pulse Ox O2 Delivery O2 Flow Rate FiO2 09/10/16 07:30 98.2 80 16 134/78 100 09/07/16 17:54 Room Air Intake and Output 09/09/16 09/09/16 09/10/16 15:00 23:00 07:00 Intake Total 900 ml 2220 ml 900 ml Output Total 500 ml 850 ml 1100 ml Balance 400 ml 1370 ml -200 ml Exam Constitutional: alert, oriented Psych: nl mood/affect, no complaints Head: atraumatic, normocephalic Eyes: EOMI, PERRL, nl conjunctiva, nl lids ENMT: nl external ears & nose, nl lips & teeth, nl nasal mucosa & septum Neck: non-tender, supple Respiratory: clear to auscultation, normal air movement, No congested cough, No crackles/rales, No diminished breath sounds, No intercostal retraction, No labored breathing, No other, No respirations, No tactile fremitus, No wheezing Cardiovascular: nl pulses, regular rate and rhythm, No S3, No S4, No bruits, No diastolic murmur, No edema, No gallop, No irregular rhythm, No jugular venous distention (JVD), No murmurs/extra sounds, No other, No rub, No systolic murmur Gastrointestinal: nl liver, spleen, non-tender, soft, No ascites, No bowel sounds, No distended, No firm, No hepatomegaly, No mass , No other, No rebound or guarding, No splenomegaly, No surgical scars, No tender Musculoskeletal: nl extremities to inspection Extremities: normal pulses, No calf tenderness, No clubbing, No cyanosis, No edema, No other, No palpable cord, No pitting pedal edema, No tenderness Neurological: PSYCHOMETRICIAN II-XII intact, nl mental status, nl speech, nl strength Skin: nl turgor Lymph: nl lymph nodes Results Result Diagram: 09/10/1644809/10/16448 Results 24 hrs Laboratory Tests Test 09/10/16 04:49 White Blood Count 5.7 Red Blood Count 2.79 L Hemoglobin 8.7 L Hematocrit 26.6 L Mean Corpuscular Volume 95.3 Mean Corpuscular Hemoglobin 31.2 Mean Corpuscular Hemoglobin Concent 32.7 Red Cell Distribution Width 18.1 H Platelet Count 160 Mean Platelet Volume 9.9 Neutrophils % 63.2 Lymphocytes % 21.6 Monocytes % 10.8 Eosinophils % 3.5 Basophils % 0.5 Nucleated Red Blood Cells % 0.0 Neutrophils # 3.6 Lymphocytes # 1.2 Monocytes # 0.6 Eosinophils # 0.2 Basophils # 0.0 Nucleated Red Blood Cells # 0.0 Sodium Level 139 Potassium Level 3.1 L Chloride Level 111 H Carbon Dioxide Level 23 Anion Gap 8 Blood Urea Nitrogen 3 L Creatinine 0.52 L Glucose Level 99 Calcium Level 7.0 L Medications Medications Current Medications Ondansetron HCl (Zofran Inj) 4 mg Q6H PRN IV NAUSEA AND/OR VOMITING Last administered on 09/07/16 11:12; Admin Dose 4 MG; Start 09/04/16 at 16:30 Acetaminophen (Tylenol Tab) 650 mg Q6H PRN PO PAIN LEVEL 1-3 OR FEVER; Start at 16:30 Acetaminophen/ Hydrocodone Bitart ([place] (5/325)) 1 tab Q6H PRN PO MODERATE PAIN LEVEL 4-6 Last administered on 09/08/16 13:21; Admin Dose 1 TAB; Start at 16:30 Morphine Sulfate (morphine) 2 mg Q4H PRN IV SEVERE PAIN LEVEL 7-10 Last administered on 09/10/16 13:24; Admin Dose 2 MG; Start 09/04/16 at 16:30 Docusate Sodium (Colace) 100 mg Q12H PRN PO CONSTIPATION Last administered on 08:25; Admin Dose 100 MG; Start 09/04/16 at 16:30 Magnesium Hydroxide (Milk Of Mag) 30 ml DAILY PRN PO CONSTIPATION; Start at 16:30 Sodium Biphosphate/ Sodium Phosphate (Fleet Enema) 133 ml DAILY PRN [place] CONSTIPATION; Start 09/04/16 at 16:30 Heparin Sodium (Porcine) (Heparin (5000 Units/0.5 ml)) 5,000 unit Q12 SC Last administered on 09/10/16 09:43; Admin Dose 5,000 UNIT; Start 09/04/16 at 21:00 Lorazepam 0.5 mg 0.5 mg Q6H PRN IV ANXIETY; Start 09/04/16 at 16:30 Sodium Chloride (NS) 1,000 ml @ 100 mls/hr Q10H IV Last administered on 09:46; Admin Dose 100 MLS/HR; Start 09/04/16 at 16:02 Hydralazine HCl (Apresoline) 10 mg Q6H PRN IV ELEVATED BLOOD PRESSURE; Start at 16:30 Nitroglycerin (Nitroglycerin (Sl Tab) 0.4 Mg) 1 tab Q5M PRN SL ANGINA; Start at 16:30 Lorazepam (Ativan) 1 mg Q6H PRN PO ANXIETY Last administered on 09/06/16 11:14 ; Admin Dose 1 MG; Start 09/06/16 at 10:00 IV Flush (NS 10 ml) 10 ml PRN PRN IV IV PROTOCOL Last administered on 15:08; Admin Dose 10 ML; Start 09/06/16 at 15:30 Zolpidem Tartrate (Ambien) 10 mg HS PRN PO INSOMNIA Last administered on 21:11; Admin Dose 10 MG; Start 09/07/16 at 02:30 Prochlorperazine (Compazine Inj) 5 mg Q6H PRN IV NAUSEA AND/OR VOMITING Last administered on 09/07/16 15:08; Admin Dose 5 MG; Start 09/07/16 at 14:30 Pantoprazole (Protonix Tab) 40 mg BID PO Last administered on 09/10/16 09:42; Admin Dose 40 MG; Start 09/07/16 at 21:00 Metoclopramide HCl (Reglan) 10 mg Q8 PO Last administered on 09/10/16 14:40; Admin Dose 10 MG; Start 09/07/16 at 22:00 Emtricitabine/ Tenofovir (Truvada) 1 tab DAILY PO Last administered on 09:42; Admin Dose 1 TAB; Start 09/09/16 at 09:00 Atazanavir (Reyataz) 300 mg WeFr@09 PO ; Start 09/12/16 at 09:00 Ritonavir (Norvir) 100 mg DAILY PO Last administered on 09/10/16 12:26; Admin Dose 100 MG; Start 09/09/16 at 09:00 Megestrol Acetate 40 mg 40 mg BID PO Last administered on 09/10/16 09:44; Admin Dose 40 MG; Start 09/09/16 at 12:30 Potassium Chloride (KCl 40 MEQ/250 ML NS) 250 ml @ 62.5 mls/hr ONCE ONCE IVPB ; Start 09/10/16 at 16:00; Stop 09/10/16 at 19:59 CAMRON SCHILLING MD September 10, 2016 16:55
[2016-09-10 20:13] VITALS: BP 127/84; RESP 18
[2016-09-11] MEDS: morphine 2 MG INJ IV PRN ×5 (02:14→23:00)
[2016-09-11] MEDS: METOCLOPRAMIDE 10 MG TAB PO SCH ×3 (05:34→20:29)
[2016-09-11 06:10] LABS: ADD SCAN DIFF NO
[2016-09-11 06:22] LABS: BASOPHILS % 0.6 % (0.0-2.0); EOSINOPHILS # 0.4 10^3/ul (0.0-0.5); EOSINOPHILS % 5.3 % (0.0-7.0); HEMATOCRIT 28.2 % (42.0-52.0); HEMOGLOBIN 9.3 g/dl (14.0-18.0); LYMPHOCYTES # 1.8 10^3/ul (0.8-2.9); LYMPHOCYTES % 25.7 % (15.0-51.0); MEAN CORPUSCULAR HEMOGLOBIN 31.3 pg (29.0-33.0); MEAN CORPUSCULAR VOLUME 94.9 fl (82.0-101.0); MONOCYTE # 0.8 10^3/ul (0.3-0.9); MONOCYTES % 11.4 % (0.0-11.0); NEUTROPHILS % 56.4 % (39.0-77.0); PLATELET COUNT 151 10^3/UL (140-415); RED BLOOD COUNT 2.97 10^6/ul (4.70-6.10); RED CELL DISTRIBUTION WIDTH 18.1 % (11.5-14.5); WHITE BLOOD COUNT 7.1 10^3/ul (4.8-10.8)
[2016-09-11 06:42] LABS: POTASSIUM 3.9 mmol/L (3.5-5.1)
[2016-09-11 06:44] LABS: CREATININE 0.53 mg/dl (0.61-1.24)
[2016-09-11 06:45] LABS: CALCIUM 7.1 mg/dl (8.4-10.2)
[2016-09-11 08:04] VITALS: BP 127/91; RESP 18
[2016-09-11] MEDS: RITONAVIR 100 MG CAP PO SCH (09:14)
[2016-09-11] MEDS: MEGESTROL 40 MG TAB PO SCH (09:14)
[2016-09-11] MEDS: PANTOPRAZOLE (EC) 40 MG TAB PO SCH ×2 (09:14→20:29)
[2016-09-11] MEDS: EMTRICITABINE/TENOFOVIR TAB PO SCH (09:14)
[2016-09-11] MEDS: HEPARIN 5,000 UNIT/0.5 ML VIAL SC SCH ×2 (09:18→20:28)
[2016-09-11] MEDS: SOD CHLORIDE 0.9% 1,000 ML IV SCH ×2 (12:44→23:00)
--- NOTE | 2016-09-11 17:04 | PN ---
Date/Time of Note Date/Time of Note DATE: 09/11/16 TIME: 17:03 Assessment/Plan VTE Prophylaxis VTE Prophylaxis Intervention: heparin Lines/Catheters IV Catheter Type (from Nrs): PICC Line Central line still needed: Yes (dificult peripheral access ) Urinary Cath still in place: No Assessment/Plan Assessment/Plan 1. Intractable nausea, severe esophagitis, follow up with biopsy from EGD 2. Acute bronchitis, negative CXR, on levaquin 3. Human immunodeficiency virus. Per patient, recent CD4 count almost 500 and viral load undetectable. resume medications 4. History of cerebrovascular accident with left-sided residual weakness. 5. Bipolar/depression. stable 6. Hypokalemia. KCL 7. Normocytic anemia, likely anemia of chronic disease. 8. DVT prophylaxis: heparin Subjective 24 Hr Interval Summary Free Text/Dictation loss of apetite, not eating well, Bp stable Exam/Review of Systems Vital Signs Vitals Vital Signs Date Time Temp Pulse Resp B/P Pulse Ox O2 Delivery O2 Flow Rate FiO2 09/11/16 08:04 98.5 100 18 127/91 100 09/07/16 17:54 Room Air Intake and Output 09/10/16 09/10/16 09/11/16 15:00 23:00 07:00 Intake Total 450 ml 850 ml 2000 ml Output Total 1400 ml 600 ml Balance 450 ml -550 ml 1400 ml Exam GENERAL: No acute distress. Answering questions appropriately. He is able to speak in full sentences. HEENT: No obvious head deformity. Pupils are reactive to light. CARDIOVASCULAR: Slightly tachycardic, regular rhythm. LUNGS: Minimally diminished breath sounds at the bases. ABDOMEN: Soft, nontender, nondistended. Positive bowel sounds. EXTREMITIES: No edema. NEUROLOGIC: There is decreased strength on the left side of his body. The left hand also has contractures. Results Result Diagram: 09/11/16 0425 09/11/16 0425 Results 24 hrs Laboratory Tests Test 09/11/16 04:25 09/11/16 06:18 White Blood Count 7.1 # Red Blood Count 2.97 L Hemoglobin 9.3 L Hematocrit 28.2 L Mean Corpuscular Volume 94.9 Mean Corpuscular Hemoglobin 31.3 Mean Corpuscular Hemoglobin Concent 33.0 Red Cell Distribution Width 18.1 H Platelet Count 151 Mean Platelet Volume 11.0 H Neutrophils % 56.4 Lymphocytes % 25.7 Monocytes % 11.4 H Eosinophils % 5.3 Basophils % 0.6 Nucleated Red Blood Cells % 0.0 Neutrophils # 4.0 Lymphocytes # 1.8 Monocytes # 0.8 Eosinophils # 0.4 Basophils # 0.0 Nucleated Red Blood Cells # 0.0 Sodium Level 137 Potassium Level 3.9 Chloride Level 116 H Carbon Dioxide Level 23 Anion Gap 2 L Blood Urea Nitrogen 4 L Creatinine 0.53 L Glucose Level 84 Calcium Level 7.1 L Lab Scanned Report BLOOD TRANSFUSION Medications Medications Current Medications Ondansetron HCl (Zofran Inj) 4 mg Q6H PRN IV NAUSEA AND/OR VOMITING Last administered on 09/07/16 11:12; Admin Dose 4 MG; Start 09/04/16 at 16:30 Acetaminophen (Tylenol Tab) 650 mg Q6H PRN PO PAIN LEVEL 1-3 OR FEVER; Start at 16:30 Acetaminophen/ Hydrocodone Bitart ([place] (5/325)) 1 tab Q6H PRN PO MODERATE PAIN LEVEL 4-6 Last administered on 09/08/16 13:21; Admin Dose 1 TAB; Start at 16:30 Morphine Sulfate (morphine) 2 mg Q4H PRN IV SEVERE PAIN LEVEL 7-10 Last administered on 09/11/16 13:21; Admin Dose 2 MG; Start 09/04/16 at 16:30 Docusate Sodium (Colace) 100 mg Q12H PRN PO CONSTIPATION Last administered on 08:25; Admin Dose 100 MG; Start 09/04/16 at 16:30 Magnesium Hydroxide (Milk Of Mag) 30 ml DAILY PRN PO CONSTIPATION; Start at 16:30 Sodium Biphosphate/ Sodium Phosphate (Fleet Enema) 133 ml DAILY PRN [place] CONSTIPATION; Start 09/04/16 at 16:30 Heparin Sodium (Porcine) (Heparin (5000 Units/0.5 ml)) 5,000 unit Q12 SC Last administered on 09/11/16 09:18; Admin Dose 5,000 UNIT; Start 09/04/16 at 21:00 Lorazepam 0.5 mg 0.5 mg Q6H PRN IV ANXIETY; Start 09/04/16 at 16:30 Sodium Chloride (NS) 1,000 ml @ 100 mls/hr Q10H IV Last administered on 12:44; Admin Dose 100 MLS/HR; Start 09/04/16 at 16:02 Hydralazine HCl (Apresoline) 10 mg Q6H PRN IV ELEVATED BLOOD PRESSURE; Start at 16:30 Nitroglycerin (Nitroglycerin (Sl Tab) 0.4 Mg) 1 tab Q5M PRN SL ANGINA; Start at 16:30 Lorazepam (Ativan) 1 mg Q6H PRN PO ANXIETY Last administered on 09/06/16 11:14 ; Admin Dose 1 MG; Start 09/06/16 at 10:00 IV Flush (NS 10 ml) 10 ml PRN PRN IV IV PROTOCOL Last administered on 15:08; Admin Dose 10 ML; Start 09/06/16 at 15:30 Zolpidem Tartrate (Ambien) 10 mg HS PRN PO INSOMNIA Last administered on 21:11; Admin Dose 10 MG; Start 09/07/16 at 02:30 Prochlorperazine (Compazine Inj) 5 mg Q6H PRN IV NAUSEA AND/OR VOMITING Last administered on 09/07/16 15:08; Admin Dose 5 MG; Start 09/07/16 at 14:30 Pantoprazole (Protonix Tab) 40 mg BID PO Last administered on 09/11/16 09:14; Admin Dose 40 MG; Start 09/07/16 at 21:00 Emtricitabine/ Tenofovir (Truvada) 1 tab DAILY PO Last administered on 09:14; Admin Dose 1 TAB; Start 09/09/16 at 09:00 Atazanavir (Reyataz) 300 mg WeFr@09 PO ; Start 09/12/16 at 09:00 Ritonavir (Norvir) 100 mg DAILY PO Last administered on 09/11/16 09:14; Admin Dose 100 MG; Start 09/09/16 at 09:00 Metoclopramide HCl (Reglan) 10 mg TID PO Last administered on 09/11/16 12:40; Admin Dose 10 MG; Start 09/11/16 at 13:00 Megestrol Acetate (Megace Susp) 400 mg BID PO ; Start 09/11/16 at 21:00 MAYCOL FERRER MD September 11, 2016 17:04
[2016-09-11 20:00] VITALS: BP 119/74; RESP 18
[2016-09-11] MEDS: MEGESTROL (40 MG/ML) 10ML CUP PO SCH (20:28)
[2016-09-12] MEDS: morphine 2 MG INJ IV PRN ×5 (05:18→21:23)
[2016-09-12 07:43] VITALS: BP 133/88; RESP 18
[2016-09-12] MEDS: RITONAVIR 100 MG CAP PO SCH (09:12)
[2016-09-12] MEDS: MEGESTROL (40 MG/ML) 10ML CUP PO SCH ×2 (09:12→20:36)
[2016-09-12] MEDS: ATAZANAVIR 150 MG CAP PO SCH (09:12)
[2016-09-12] MEDS: EMTRICITABINE/TENOFOVIR TAB PO SCH (09:12)
[2016-09-12] MEDS: METOCLOPRAMIDE 10 MG TAB PO SCH ×3 (09:12→20:36)
[2016-09-12] MEDS: PANTOPRAZOLE (EC) 40 MG TAB PO SCH ×2 (09:12→20:36)
[2016-09-12] MEDS: HEPARIN 5,000 UNIT/0.5 ML VIAL SC SCH ×2 (09:15→20:45)
[2016-09-12] MEDS: SOD CHLORIDE 0.9% 1,000 ML IV SCH ×2 (09:22→20:40)
--- NOTE | 2016-09-12 14:16 | PN ---
Date/Time of Note Date/Time of Note DATE: 09/12/16 TIME: 14:13 Assessment/Plan VTE Prophylaxis VTE Prophylaxis Intervention: SCD's Lines/Catheters IV Catheter Type (from Nrsg): PICC Line Central line still needed: Yes Urinary Cath still in place: No Assessment/Plan Assessment/Plan Nausea/vomiting controlled EGD 09/08/2016 Severe erosive esophagitis Candidal esophagitis biopsy Gastritis * Anemia Colonoscopy polyp ascending colon * History of HIV * History of CVA Plan will start fluconazole 400 mg daily Reglan 10 mg q6 for nausea/vomiting continue present management Subjective 24 Hr Interval Summary Free Text/Dictation * Course reviewed with RN * Patient seen and examined * BIOPSY B-Esophagus biopsy: -- Ruby esophagitis. -- PAS positive budding yeast and pseudohyphae are identified in an [place] blue/ PAS stain (positive control concurrently reviewed). -- A small amount of glandular mucosa is present and shows no intestinal metaplasia. -- There is no evidence of malignancy. Exam/Review of Systems Vital Signs Vitals Vital Signs Date Time Temp Pulse Resp B/P Pulse Ox O2 Delivery O2 Flow Rate FiO2 09/12/16 07:43 98.0 82 18 133/88 94 Intake and Output 09/11/16 09/11/16 09/12/16 15:00 23:00 07:00 Intake Total 400 ml 1800 ml 1140 ml Output Total 750 ml 350 ml Balance 400 ml 1050 ml 790 ml Exam Constitutional: alert, frail Neck: non-tender, supple Respiratory: clear to auscultation, normal air movement Cardiovascular: nl pulses, regular rate and rhythm Gastrointestinal: non-tender, soft Musculoskeletal: nl extremities to inspection Results Result Diagram: 09/11/16 0425 09/11/16 0425 Medications Medications Current Medications Ondansetron HCl (Zofran Inj) 4 mg Q6H PRN IV NAUSEA AND/OR VOMITING Last administered on 09/07/16 11:12; Admin Dose 4 MG; Start 09/04/16 at 16:30 Acetaminophen (Tylenol Tab) 650 mg Q6H PRN PO PAIN LEVEL 1-3 OR FEVER; Start at 16:30 Acetaminophen/ Hydrocodone Bitart ([place] (5/325)) 1 tab Q6H PRN PO MODERATE PAIN LEVEL 4-6 Last administered on 09/08/16 13:21; Admin Dose 1 TAB; Start at 16:30 Morphine Sulfate (morphine) 2 mg Q4H PRN IV SEVERE PAIN LEVEL 7-10 Last administered on 09/12/16 13:23; Admin Dose 2 MG; Start 09/04/16 at 16:30 Docusate Sodium (Colace) 100 mg Q12H PRN PO CONSTIPATION Last administered on 08:25; Admin Dose 100 MG; Start 09/04/16 at 16:30 Magnesium Hydroxide (Milk Of Mag) 30 ml DAILY PRN PO CONSTIPATION; Start at 16:30 Sodium Biphosphate/ Sodium Phosphate (Fleet Enema) 133 ml DAILY PRN [place] CONSTIPATION; Start 09/04/16 at 16:30 Heparin Sodium (Porcine) (Heparin (5000 Units/0.5 ml)) 5,000 unit Q12 SC Last administered on 09/12/16 09:15; Admin Dose 5,000 UNIT; Start 09/04/16 at 21:00 Lorazepam 0.5 mg 0.5 mg Q6H PRN IV ANXIETY; Start 09/04/16 at 16:30 Sodium Chloride (NS) 1,000 ml @ 100 mls/hr Q10H IV Last administered on 09:22; Admin Dose 100 MLS/HR; Start 09/04/16 at 16:02 Hydralazine HCl (Apresoline) 10 mg Q6H PRN IV ELEVATED BLOOD PRESSURE; Start at 16:30 Nitroglycerin (Nitroglycerin (Sl Tab) 0.4 Mg) 1 tab Q5M PRN SL ANGINA; Start at 16:30 Lorazepam (Ativan) 1 mg Q6H PRN PO ANXIETY Last administered on 09/06/16 11:14 ; Admin Dose 1 MG; Start 09/06/16 at 10:00 IV Flush (NS 10 ml) 10 ml PRN PRN IV IV PROTOCOL Last administered on 15:08; Admin Dose 10 ML; Start 09/06/16 at 15:30 Zolpidem Tartrate (Ambien) 10 mg HS PRN PO INSOMNIA Last administered on 21:11; Admin Dose 10 MG; Start 09/07/16 at 02:30 Prochlorperazine (Compazine Inj) 5 mg Q6H PRN IV NAUSEA AND/OR VOMITING Last administered on 09/07/16 15:08; Admin Dose 5 MG; Start 09/07/16 at 14:30 Pantoprazole (Protonix Tab) 40 mg BID PO Last administered on 09/12/16 09:12; Admin Dose 40 MG; Start 09/07/16 at 21:00 Emtricitabine/ Tenofovir (Truvada) 1 tab DAILY PO Last administered on 09:12; Admin Dose 1 TAB; Start 09/09/16 at 09:00 Atazanavir (Reyataz) 300 mg WeFr@09 PO Last administered on 09/12/16 09:12; Admin Dose 300 MG; Start 09/12/16 at 09:00 Ritonavir (Norvir) 100 mg DAILY PO Last administered on 09/12/16 09:12; Admin Dose 100 MG; Start 09/09/16 at 09:00 Metoclopramide HCl (Reglan) 10 mg TID PO Last administered on 09/12/16 13:22; Admin Dose 10 MG; Start 09/11/16 at 13:00 Megestrol Acetate (Megace Susp) 400 mg BID PO Last administered on 09/12/16 09 :12; Admin Dose 400 MG; Start 09/11/16 at 21:00 JOSE NANCE MD September 12, 2016 14:16
[2016-09-12] MEDS: FLUCONAZOLE 400 MG/NS (PMX) 200 ML IVPB SCH (16:20)
--- NOTE | 2016-09-12 18:01 | PN ---
Date/Time of Note Date/Time of Note DATE: 09/12/16 TIME: 17:59 Assessment/Plan VTE Prophylaxis VTE Prophylaxis Intervention: heparin Lines/Catheters IV Catheter Type (from Nrsg): PICC Line Central line still needed: Yes (poor peripheral access ) Urinary Cath still in place: No Assessment/Plan Assessment/Plan 1. Intractable nausea, severe esophagitis, follow up with biopsy from EGD 2. Acute bronchitis, negative CXR, on levaquin 3. Human immunodeficiency virus. Per patient, recent CD4 count almost 500 and viral load undetectable. resume medications 4. History of cerebrovascular accident with left-sided residual weakness. 5. Bipolar/depression. stable 6. Hypokalemia. resolved 7. Normocytic anemia, likely anemia of chronic disease. 8. DVT prophylaxis: heparin Subjective 24 Hr Interval Summary Free Text/Dictation doing ok, BP stable, afebrile, Exam/Review of Systems Vital Signs Vitals Vital Signs Date Time Temp Pulse Resp B/P Pulse Ox O2 Delivery O2 Flow Rate FiO2 09/12/16 07:43 98.0 82 18 133/88 94 Intake and Output 09/11/16 09/11/16 09/12/16 15:00 23:00 07:00 Intake Total 400 ml 1800 ml 1140 ml Output Total 750 ml 350 ml Balance 400 ml 1050 ml 790 ml Exam GENERAL: No acute distress. HEENT: No obvious head deformity. Pupils are reactive to light. CARDIOVASCULAR: Slightly tachycardic, regular rhythm. LUNGS: Minimally diminished breath sounds at the bases. ABDOMEN: Soft, nontender, nondistended. Positive bowel sounds. EXTREMITIES: No edema. NEUROLOGIC: non focal . Results Result Diagram: 09/11/16 0425 09/11/16 0425 Medications Medications Current Medications Ondansetron HCl (Zofran Inj) 4 mg Q6H PRN IV NAUSEA AND/OR VOMITING Last administered on 09/07/16 11:12; Admin Dose 4 MG; Start 09/04/16 at 16:30 Acetaminophen (Tylenol Tab) 650 mg Q6H PRN PO PAIN LEVEL 1-3 OR FEVER; Start at 16:30 Acetaminophen/ Hydrocodone Bitart ([place] (5/325)) 1 tab Q6H PRN PO MODERATE PAIN LEVEL 4-6 Last administered on 09/08/16 13:21; Admin Dose 1 TAB; Start at 16:30 Morphine Sulfate (morphine) 2 mg Q4H PRN IV SEVERE PAIN LEVEL 7-10 Last administered on 09/12/16 17:26; Admin Dose 2 MG; Start 09/04/16 at 16:30 Docusate Sodium (Colace) 100 mg Q12H PRN PO CONSTIPATION Last administered on 08:25; Admin Dose 100 MG; Start 09/04/16 at 16:30 Magnesium Hydroxide (Milk Of Mag) 30 ml DAILY PRN PO CONSTIPATION; Start at 16:30 Sodium Biphosphate/ Sodium Phosphate (Fleet Enema) 133 ml DAILY PRN [place] CONSTIPATION; Start 09/04/16 at 16:30 Heparin Sodium (Porcine) (Heparin (5000 Units/0.5 ml)) 5,000 unit Q12 SC Last administered on 09/12/16 09:15; Admin Dose 5,000 UNIT; Start 09/04/16 at 21:00 Lorazepam 0.5 mg 0.5 mg Q6H PRN IV ANXIETY; Start 09/04/16 at 16:30 Sodium Chloride (NS) 1,000 ml @ 100 mls/hr Q10H IV Last administered on 09:22; Admin Dose 100 MLS/HR; Start 09/04/16 at 16:02 Hydralazine HCl (Apresoline) 10 mg Q6H PRN IV ELEVATED BLOOD PRESSURE; Start at 16:30 Nitroglycerin (Nitroglycerin (Sl Tab) 0.4 Mg) 1 tab Q5M PRN SL ANGINA; Start at 16:30 Lorazepam (Ativan) 1 mg Q6H PRN PO ANXIETY Last administered on 09/06/16 11:14 ; Admin Dose 1 MG; Start 09/06/16 at 10:00 IV Flush (NS 10 ml) 10 ml PRN PRN IV IV PROTOCOL Last administered on 15:08; Admin Dose 10 ML; Start 09/06/16 at 15:30 Zolpidem Tartrate (Ambien) 10 mg HS PRN PO INSOMNIA Last administered on 21:11; Admin Dose 10 MG; Start 09/07/16 at 02:30 Prochlorperazine (Compazine Inj) 5 mg Q6H PRN IV NAUSEA AND/OR VOMITING Last administered on 09/07/16 15:08; Admin Dose 5 MG; Start 09/07/16 at 14:30 Pantoprazole (Protonix Tab) 40 mg BID PO Last administered on 09/12/16 09:12; Admin Dose 40 MG; Start 09/07/16 at 21:00 Emtricitabine/ Tenofovir (Truvada) 1 tab DAILY PO Last administered on 09:12; Admin Dose 1 TAB; Start 09/09/16 at 09:00 Atazanavir (Reyataz) 300 mg WeFr@09 PO Last administered on 09/12/16 09:12; Admin Dose 300 MG; Start 09/12/16 at 09:00 Ritonavir (Norvir) 100 mg DAILY PO Last administered on 09/12/16 09:12; Admin Dose 100 MG; Start 09/09/16 at 09:00 Metoclopramide HCl (Reglan) 10 mg TID PO Last administered on 09/12/16 13:22; Admin Dose 10 MG; Start 09/11/16 at 13:00 Megestrol Acetate 400 mg 400 mg BID PO Last administered on 09/12/16 09:12; Admin Dose 400 MG; Start 09/11/16 at 21:00 Fluconazole (Diflucan 400 Mg/ NS (Pmx)) 200 ml @ 200 mls/hr Q24H IVPB Last administered on 09/12/16 16:20; Admin Dose 200 MLS/HR; Start 09/12/16 at 16:00 MAYCOL FERRER MD September 12, 2016 18:00
[2016-09-12 20:15] VITALS: BP 130/93; RESP 18
[2016-09-12] MEDS: ZOLPIDEM 5 MG TAB PO PRN (20:37)
[2016-09-12] MEDS: MAGNESIUM HYDROXIDE 30ML CUP PO PRN (20:38)
[2016-09-13] MEDS: morphine 2 MG INJ IV PRN ×5 (02:59→20:19)
[2016-09-13 05:18] LABS: ADD SCAN DIFF NO
[2016-09-13 05:20] LABS: BASOPHILS % 0.5 % (0.0-2.0); EOSINOPHILS # 0.3 10^3/ul (0.0-0.5); EOSINOPHILS % 3.3 % (0.0-7.0); HEMATOCRIT 26.8 % (42.0-52.0); LYMPHOCYTES # 2.1 10^3/ul (0.8-2.9); MEAN CORPUSCULAR HEMOGLOBIN 31.8 pg (29.0-33.0); MEAN CORPUSCULAR HGB CONC 33.6 g/dl (32.0-37.0); MEAN CORPUSCULAR VOLUME 94.7 fl (82.0-101.0); MEAN PLATELET VOLUME 10.5 fl (7.4-10.4); MONOCYTES % 11.8 % (0.0-11.0); NEUTROPHIL # 4.7 10^3/ul (1.6-7.5); NEUTROPHILS % 57.8 % (39.0-77.0); PLATELET COUNT 177 10^3/UL (140-415); RED BLOOD COUNT 2.83 10^6/ul (4.70-6.10); RED CELL DISTRIBUTION WIDTH 17.4 % (11.5-14.5); WHITE BLOOD COUNT 8.2 10^3/ul (4.8-10.8)
[2016-09-13 05:50] LABS: ALBUMIN 2.2 g/dl (3.3-4.9); ALBUMIN/GLOBULIN RATIO 0.61; BILIRUBIN,INDIRECT 1.4 mg/dl (0-1.1); BILIRUBIN,TOTAL 1.4 mg/dl (0.2-1.3); CALCIUM 7.2 mg/dl (8.4-10.2); CREATININE 0.55 mg/dl (0.61-1.24); POTASSIUM 3.7 mmol/L (3.5-5.1); TOTAL PROTEIN 5.8 g/dl (6.1-8.1)
[2016-09-13] MEDS: SOD CHLORIDE 0.9% 1,000 ML IV SCH ×2 (06:50→19:47)
[2016-09-13 07:54] VITALS: BP 117/82; RESP 18
[2016-09-13] MEDS: EMTRICITABINE/TENOFOVIR TAB PO SCH (09:03)
[2016-09-13] MEDS: MEGESTROL (40 MG/ML) 10ML CUP PO SCH ×2 (09:03→20:48)
[2016-09-13] MEDS: RITONAVIR 100 MG CAP PO SCH (09:03)
[2016-09-13] MEDS: PANTOPRAZOLE (EC) 40 MG TAB PO SCH ×2 (09:03→20:48)
[2016-09-13] MEDS: METOCLOPRAMIDE 10 MG TAB PO SCH ×3 (09:03→20:48)
[2016-09-13] MEDS: HEPARIN 5,000 UNIT/0.5 ML VIAL SC SCH ×2 (09:06→20:50)
--- NOTE | 2016-09-13 14:53 | PN ---
Date/Time of Note Date/Time of Note DATE: 09/13/16 TIME: 14:51 Assessment/Plan VTE Prophylaxis VTE Prophylaxis Intervention: SCD's Lines/Catheters IV Catheter Type (from Nrs): PICC Line Central line still needed: Yes Urinary Cath still in place: No Assessment/Plan Assessment/Plan ausea/vomiting controlled EGD 09/08/2016 Severe erosive esophagitis Candidal esophagitis biopsy Gastritis * Anemia Colonoscopy polyp ascending colon * History of HIV * History of CVA Plan continue present management Subjective 24 Hr Interval Summary Free Text/Dictation * Course reviwed with RN * Patient seen and examined * No nausea nor vomiting tolerating diet Exam/Review of Systems Vital Signs Vitals Vital Signs Date Time Temp Pulse Resp B/P Pulse Ox O2 Delivery O2 Flow Rate FiO2 09/13/16 07:54 98.5 121 18 117/82 98 Intake and Output 09/12/16 09/12/16 09/13/16 15:00 23:00 07:00 Intake Total 400 ml 2470 ml 1000 ml Output Total 800 ml Balance 400 ml 1670 ml 1000 ml Exam Constitutional: alert, frail Neck: non-tender, supple Respiratory: clear to auscultation, diminished breath sounds, normal air movement Cardiovascular: nl pulses, regular rate and rhythm Gastrointestinal: non-tender, soft Musculoskeletal: nl extremities to inspection Results Result Diagram: 09/13/16 0445 09/13/165 Results 24 hrs Laboratory Tests Test 09/13/16 04:45 White Blood Count 8.2 Red Blood Count 2.83 L Hemoglobin 9.0 L Hematocrit 26.8 L Mean Corpuscular Volume 94.7 Mean Corpuscular Hemoglobin 31.8 Mean Corpuscular Hemoglobin Concent 33.6 Red Cell Distribution Width 17.4 H Platelet Count 177 Mean Platelet Volume 10.5 H Neutrophils % 57.8 Lymphocytes % 26.0 Monocytes % 11.8 H Eosinophils % 3.3 Basophils % 0.5 Nucleated Red Blood Cells % 0.0 Neutrophils # 4.7 Lymphocytes # 2.1 Monocytes # 1.0 H Eosinophils # 0.3 Basophils # 0.0 Nucleated Red Blood Cells # 0.0 Sodium Level 134 L Potassium Level 3.7 Chloride Level 113 H Carbon Dioxide Level 24 Anion Gap 1 L Blood Urea Nitrogen 5 L Creatinine 0.55 L Glucose Level 90 Calcium Level 7.2 L Total Bilirubin 1.4 H Direct Bilirubin 0.00 Indirect Bilirubin 1.4 H Aspartate Amino Transf (AST/SGOT) 25 Alanine Aminotransferase (ALT/SGPT) 35 Alkaline Phosphatase 82 Total Protein 5.8 L Albumin 2.2 L Globulin 3.60 H Albumin/Globulin Ratio 0.61 Medications Medications Current Medications Ondansetron HCl (Zofran Inj) 4 mg Q6H PRN IV NAUSEA AND/OR VOMITING Last administered on 09/07/16 11:12; Admin Dose 4 MG; Start 09/04/16 at 16:30 Acetaminophen (Tylenol Tab) 650 mg Q6H PRN PO PAIN LEVEL 1-3 OR FEVER; Start at 16:30 Acetaminophen/ Hydrocodone Bitart ([place] (5/325)) 1 tab Q6H PRN PO MODERATE PAIN LEVEL 4-6 Last administered on 09/08/16 13:21; Admin Dose 1 TAB; Start at 16:30 Morphine Sulfate (morphine) 2 mg Q4H PRN IV SEVERE PAIN LEVEL 7-10 Last administered on 09/13/16 11:05; Admin Dose 2 MG; Start 09/04/16 at 16:30 Docusate Sodium (Colace) 100 mg Q12H PRN PO CONSTIPATION Last administered on 08:25; Admin Dose 100 MG; Start 09/04/16 at 16:30 Magnesium Hydroxide (Milk Of Mag) 30 ml DAILY PRN PO CONSTIPATION Last administered on 09/12/16 20:38; Admin Dose 30 ML; Start 09/04/16 at 16:30 Sodium Biphosphate/ Sodium Phosphate (Fleet Enema) 133 ml DAILY PRN [place] CONSTIPATION; Start 09/04/16 at 16:30 Heparin Sodium (Porcine) (Heparin (5000 Units/0.5 ml)) 5,000 unit Q12 SC Last administered on 09/13/16 09:06; Admin Dose 5,000 UNIT; Start 09/04/16 at 21:00 Lorazepam 0.5 mg 0.5 mg Q6H PRN IV ANXIETY; Start 09/04/16 at 16:30 Sodium Chloride (NS) 1,000 ml @ 100 mls/hr Q10H IV Last administered on 06:50; Admin Dose 100 MLS/HR; Start 09/04/16 at 16:02 Hydralazine HCl (Apresoline) 10 mg Q6H PRN IV ELEVATED BLOOD PRESSURE; Start at 16:30 Nitroglycerin (Nitroglycerin (Sl Tab) 0.4 Mg) 1 tab Q5M PRN SL ANGINA; Start at 16:30 Lorazepam (Ativan) 1 mg Q6H PRN PO ANXIETY Last administered on 09/06/16 11:14 ; Admin Dose 1 MG; Start 09/06/16 at 10:00 IV Flush (NS 10 ml) 10 ml PRN PRN IV IV PROTOCOL Last administered on 15:08; Admin Dose 10 ML; Start 09/06/16 at 15:30 Zolpidem Tartrate (Ambien) 10 mg HS PRN PO INSOMNIA Last administered on 20:37; Admin Dose 10 MG; Start 09/07/16 at 02:30 Prochlorperazine (Compazine Inj) 5 mg Q6H PRN IV NAUSEA AND/OR VOMITING Last administered on 09/07/16 15:08; Admin Dose 5 MG; Start 09/07/16 at 14:30 Pantoprazole (Protonix Tab) 40 mg BID PO Last administered on 09/13/16 09:03; Admin Dose 40 MG; Start 09/07/16 at 21:00 Emtricitabine/ Tenofovir (Truvada) 1 tab DAILY PO Last administered on 09:03; Admin Dose 1 TAB; Start 09/09/16 at 09:00 Atazanavir (Reyataz) 300 mg WeFr@09 PO Last administered on 09/12/16 09:12; Admin Dose 300 MG; Start 09/12/16 at 09:00 Ritonavir (Norvir) 100 mg DAILY PO Last administered on 09/13/16 09:03; Admin Dose 100 MG; Start 09/09/16 at 09:00 Metoclopramide HCl (Reglan) 10 mg TID PO Last administered on 09/13/16 12:29; Admin Dose 10 MG; Start 09/11/16 at 13:00 Megestrol Acetate 400 mg 400 mg BID PO Last administered on 09/13/16 09:03; Admin Dose 400 MG; Start 09/11/16 at 21:00 Fluconazole (Diflucan 400 Mg/ NS (Pmx)) 200 ml @ 200 mls/hr Q24H IVPB Last administered on 09/12/16t 16:20; Admin Dose 200 MLS/HR; Start 09/12/16 at 16:00 JOSE NANCE MD Sep 13, 2016 14:53
[2016-09-13] MEDS: FLUCONAZOLE 400 MG/NS (PMX) 200 ML IVPB SCH (15:30)
--- NOTE | 2016-09-13 16:40 | PN ---
Date/Time of Note Date/Time of Note DATE: 09/13/16 TIME: 16:38 Assessment/Plan VTE Prophylaxis VTE Prophylaxis Intervention: heparin Lines/Catheters IV Catheter Type (from Nrs): PICC Line Central line still needed: Yes (IV access ) Urinary Cath still in place: No Assessment/Plan Assessment/Plan 1. Intractable nausea, severe esophagitis, follow up with biopsy from EGD 2. Acute bronchitis, negative CXR, on levaquin 3. Human immunodeficiency virus. Per patient, recent CD4 count almost 500 and viral load undetectable. resume medications 4. History of cerebrovascular accident with left-sided residual weakness. 5. Bipolar/depression. stable 6. Hypokalemia. resolved 7. Normocytic anemia, likely anemia of chronic disease. 8. DVT prophylaxis: heparin Subjective 24 Hr Interval Summary Free Text/Dictation remainied afebrile, sometimes HR upto 120-130 Exam/Review of Systems Vital Signs Vitals Vital Signs Date Time Temp Pulse Resp B/P Pulse Ox O2 Delivery O2 Flow Rate FiO2 09/13/16 07:54 98.5 121 18 117/82 98 Intake and Output 09/12/16 09/12/16 09/13/16 15:00 23:00 07:00 Intake Total 400 ml 2470 ml 1000 ml Output Total 800 ml Balance 400 ml 1670 ml 1000 ml Exam GENERAL: No acute distress. HEENT: No obvious head deformity. Pupils are reactive to light. CARDIOVASCULAR: Slightly tachycardic, regular rhythm. LUNGS: Minimally diminished breath sounds at the bases. ABDOMEN: Soft, nontender, nondistended. Positive bowel sounds. EXTREMITIES: No edema. NEUROLOGIC: non focal . Results Result Diagram: 09/13/16 0445 09/13/16 0445 Results 24 hrs Laboratory Tests Test 09/13/16 04:45 White Blood Count 8.2 Red Blood Count 2.83 L Hemoglobin 9.0 L Hematocrit 26.8 L Mean Corpuscular Volume 94.7 Mean Corpuscular Hemoglobin 31.8 Mean Corpuscular Hemoglobin Concent 33.6 Red Cell Distribution Width 17.4 H Platelet Count 177 Mean Platelet Volume 10.5 H Neutrophils % 57.8 Lymphocytes % 26.0 Monocytes % 11.8 H Eosinophils % 3.3 Basophils % 0.5 Nucleated Red Blood Cells % 0.0 Neutrophils # 4.7 Lymphocytes # 2.1 Monocytes # 1.0 H Eosinophils # 0.3 Basophils # 0.0 Nucleated Red Blood Cells # 0.0 Sodium Level 134 L Potassium Level 3.7 Chloride Level 113 H Carbon Dioxide Level 24 Anion Gap 1 L Blood Urea Nitrogen 5 L Creatinine 0.55 L Glucose Level 90 Calcium Level 7.2 L Total Bilirubin 1.4 H Direct Bilirubin 0.00 Indirect Bilirubin 1.4 H Aspartate Amino Transf (AST/SGOT) 25 Alanine Aminotransferase (ALT/SGPT) 35 Alkaline Phosphatase 82 Total Protein 5.8 L Albumin 2.2 L Globulin 3.60 H Albumin/Globulin Ratio 0.61 Medications Medications Current Medications Ondansetron HCl (Zofran Inj) 4 mg Q6H PRN IV NAUSEA AND/OR VOMITING Last administered on 09/07/16 11:12; Admin Dose 4 MG; Start 09/04/16 at 16:30 Acetaminophen (Tylenol Tab) 650 mg Q6H PRN PO PAIN LEVEL 1-3 OR FEVER; Start at 16:30 Acetaminophen/ Hydrocodone Bitart ([place] (5/325)) 1 tab Q6H PRN PO MODERATE PAIN LEVEL 4-6 Last administered on 09/08/16 13:21; Admin Dose 1 TAB; Start at 16:30 Morphine Sulfate (morphine) 2 mg Q4H PRN IV SEVERE PAIN LEVEL 7-10 Last administered on 09/13/16 15:30; Admin Dose 2 MG; Start 09/04/16 at 16:30 Docusate Sodium (Colace) 100 mg Q12H PRN PO CONSTIPATION Last administered on 08:25; Admin Dose 100 MG; Start 09/04/16 at 16:30 Magnesium Hydroxide (Milk Of Mag) 30 ml DAILY PRN PO CONSTIPATION Last administered on 09/12/16 20:38; Admin Dose 30 ML; Start 09/04/16 at 16:30 Sodium Biphosphate/ Sodium Phosphate (Fleet Enema) 133 ml DAILY PRN [place] CONSTIPATION; Start 09/04/16 at 16:30 Heparin Sodium (Porcine) (Heparin (5000 Units/0.5 ml)) 5,000 unit Q12 SC Last administered on 09/13/16 09:06; Admin Dose 5,000 UNIT; Start 09/04/16 at 21:00 Lorazepam 0.5 mg 0.5 mg Q6H PRN IV ANXIETY; Start 09/04/16 at 16:30 Sodium Chloride (NS) 1,000 ml @ 100 mls/hr Q10H IV Last administered on 06:50; Admin Dose 100 MLS/HR; Start 09/04/16 at 16:02 Hydralazine HCl (Apresoline) 10 mg Q6H PRN IV ELEVATED BLOOD PRESSURE; Start at 16:30 Nitroglycerin (Nitroglycerin (Sl Tab) 0.4 Mg) 1 tab Q5M PRN SL ANGINA; Start at 16:30 Lorazepam (Ativan) 1 mg Q6H PRN PO ANXIETY Last administered on 09/06/16 11:14 ; Admin Dose 1 MG; Start 09/06/16 at 10:00 IV Flush (NS 10 ml) 10 ml PRN PRN IV IV PROTOCOL Last administered on 15:08; Admin Dose 10 ML; Start 09/06/16 at 15:30 Zolpidem Tartrate (Ambien) 10 mg HS PRN PO INSOMNIA Last administered on 20:37; Admin Dose 10 MG; Start 09/07/16 at 02:30 Prochlorperazine (Compazine Inj) 5 mg Q6H PRN IV NAUSEA AND/OR VOMITING Last administered on 09/07/16 15:08; Admin Dose 5 MG; Start 09/07/16 at 14:30 Pantoprazole (Protonix Tab) 40 mg BID PO Last administered on 09/13/16 09:03; Admin Dose 40 MG; Start 09/07/16 at 21:00 Emtricitabine/ Tenofovir (Truvada) 1 tab DAILY PO Last administered on 09:03; Admin Dose 1 TAB; Start 09/09/16 at 09:00 Atazanavir (Reyataz) 300 mg WeFr@09 PO Last administered on 09/12/16 09:12; Admin Dose 300 MG; Start 09/12/16 at 09:00 Ritonavir (Norvir) 100 mg DAILY PO Last administered on 09/13/16 09:03; Admin Dose 100 MG; Start 09/09/16 at 09:00 Metoclopramide HCl (Reglan) 10 mg TID PO Last administered on 09/13/16 12:29; Admin Dose 10 MG; Start 09/11/16 at 13:00 Megestrol Acetate 400 mg 400 mg BID PO Last administered on 09/13/16 09:03; Admin Dose 400 MG; Start 09/11/16 at 21:00 Fluconazole (Diflucan 400 Mg/ NS (Pmx)) 200 ml @ 200 mls/hr Q24H IVPB Last administered on 09/13/16 15:30; Admin Dose 200 MLS/HR; Start 09/12/16 at 16:00 MAYCOL FERRER MD Sep 13, 2016 16:40
[2016-09-13 20:18] VITALS: BP 130/83; RESP 18
[2016-09-13] MEDS: HYDROCODONE/APAP (5/325) TAB PO PRN (22:27)
[2016-09-14] MEDS: morphine 2 MG INJ IV PRN ×6 (00:56→23:07)
[2016-09-14] MEDS: SOD CHLORIDE 0.9% 1,000 ML IV SCH (06:25)
[2016-09-14 07:10] VITALS: BP 116/74; RESP 16
[2016-09-14] MEDS: MEGESTROL (40 MG/ML) 10ML CUP PO SCH ×2 (08:52→20:43)
[2016-09-14] MEDS: HEPARIN 5,000 UNIT/0.5 ML VIAL SC SCH ×2 (08:53→20:44)
[2016-09-14] MEDS: EMTRICITABINE/TENOFOVIR TAB PO SCH (08:53)
[2016-09-14] MEDS: PANTOPRAZOLE (EC) 40 MG TAB PO SCH ×2 (08:53→20:43)
[2016-09-14] MEDS: METOCLOPRAMIDE 10 MG TAB PO SCH ×3 (08:53→20:43)
[2016-09-14] MEDS: RITONAVIR 100 MG CAP PO SCH (08:53)
[2016-09-14] MEDS: ATAZANAVIR 150 MG CAP PO SCH (09:58)
[2016-09-14] MEDS: DEXTROSE 5%-0.45% NACL 1,000 ML IV SCH ×2 (12:14→22:35)
--- NOTE | 2016-09-14 14:04 | CONS ---
Date/Time of Note Date/Time of Note DATE: 09/14/16 TIME: 13:59 Assessment/Plan Assessment/Plan Additional Assessment/Plan Anemia Nausea/vomiting controlled * EGD 09/08/2016: Severe erosive esophagitis. Candidal esophagitis biopsy. Gastritis * Colonoscopy: polyp ascending colon History of HIV History of CVA Plan: Monitor labs Encourage more PO intake Further recommendations depend on clinical course PT seen in collaboration with Dr. Sosa Consultation Date/Type/Reason Admit Date/Time September 04, 2016 at 15:40 Initial Consult Date 09/06/16 Type of Consultation: Gastroenterolgy Referring Provider: CAMRON SCHILLING MD 24 HR Interval Summary Free Text/Dictation Hema diet No reports of nausea or vomiting Exam/Review of Systems Vital Signs Vitals Vital Signs Date Time Temp Pulse Resp B/P Pulse Ox O2 Delivery O2 Flow Rate FiO2 09/14/16 07:10 97.4 110 16 116/74 100 Intake and Output 09/13/16 09/13/16 09/14/16 15:00 23:00 07:00 Intake Total 360 ml 2240 ml 1850 ml Output Total 1150 ml 400 ml 1150 ml Balance -790 ml 1840 ml 700 ml Exam Constitutional: alert, frail Neck: non-tender, supple Respiratory: clear to auscultation, diminished breath sounds, normal air movement Cardiovascular: nl pulses, regular rate and rhythm Gastrointestinal: non-tender, soft Musculoskeletal: nl extremities to inspection Results Result Diagram: 09/13/16 0445 09/13/16 0445 Medications Medications Current Medications Ondansetron HCl (Zofran Inj) 4 mg Q6H PRN IV NAUSEA AND/OR VOMITING Last administered on 09/07/16 11:12; Admin Dose 4 MG; Start 09/04/16 at 16:30 Acetaminophen (Tylenol Tab) 650 mg Q6H PRN PO PAIN LEVEL 1-3 OR FEVER; Start at 16:30 Acetaminophen/ Hydrocodone Bitart ([place] (5/325)) 1 tab Q6H PRN PO MODERATE PAIN LEVEL 4-6 Last administered on 09/13/16 22:27; Admin Dose 1 TAB; Start at 16:30 Morphine Sulfate (morphine) 2 mg Q4H PRN IV SEVERE PAIN LEVEL 7-10 Last administered on 09/14/16 10:37; Admin Dose 2 MG; Start 09/04/16 at 16:30 Docusate Sodium (Colace) 100 mg Q12H PRN PO CONSTIPATION Last administered on 08:25; Admin Dose 100 MG; Start 09/04/16 at 16:30 Magnesium Hydroxide (Milk Of Mag) 30 ml DAILY PRN PO CONSTIPATION Last administered on 09/12/16 20:38; Admin Dose 30 ML; Start 09/04/16 at 16:30 Sodium Biphosphate/ Sodium Phosphate (Fleet Enema) 133 ml DAILY PRN [place] CONSTIPATION; Start 09/04/16 at 16:30 Heparin Sodium (Porcine) (Heparin (5000 Units/0.5 ml)) 5,000 unit Q12 SC Last administered on 09/14/16 08:53; Admin Dose 5,000 UNIT; Start 09/04/16 at 21:00 Lorazepam (Ativan) 0.5 mg Q6H PRN IV ANXIETY; Start 09/04/16 at 16:30 Hydralazine HCl (Apresoline) 10 mg Q6H PRN IV ELEVATED BLOOD PRESSURE; Start at 16:30 Nitroglycerin (Nitroglycerin (Sl Tab) 0.4 Mg) 1 tab Q5M PRN SL ANGINA; Start at 16:30 Lorazepam (Ativan) 1 mg Q6H PRN PO ANXIETY Last administered on 09/06/16 11:14 ; Admin Dose 1 MG; Start 09/06/16 at 10:00 IV Flush (NS 10 ml) 10 ml PRN PRN IV IV PROTOCOL Last administered on 15:08; Admin Dose 10 ML; Start 09/06/16 at 15:30 Zolpidem Tartrate (Ambien) 10 mg HS PRN PO INSOMNIA Last administered on 20:37; Admin Dose 10 MG; Start 09/07/16 at 02:30 Prochlorperazine (Compazine Inj) 5 mg Q6H PRN IV NAUSEA AND/OR VOMITING Last administered on 09/07/16 15:08; Admin Dose 5 MG; Start 09/07/16 at 14:30 Pantoprazole (Protonix Tab) 40 mg BID PO Last administered on 09/14/16 08:53; Admin Dose 40 MG; Start 09/07/16 at 21:00 Emtricitabine/ Tenofovir (Truvada) 1 tab DAILY PO Last administered on 08:53; Admin Dose 1 TAB; Start 09/09/16 at 09:00 Atazanavir (Reyataz) 300 mg WeFr@09 PO Last administered on 09/14/16 09:58; Admin Dose 300 MG; Start 09/12/16 at 09:00 Ritonavir (Norvir) 100 mg DAILY PO Last administered on 09/14/16 08:53; Admin Dose 100 MG; Start 09/09/16 at 09:00 Metoclopramide HCl (Reglan) 10 mg TID PO Last administered on 09/14/16 12:14; Admin Dose 10 MG; Start 09/11/16 at 13:00 Megestrol Acetate 400 mg 400 mg BID PO Last administered on 09/14/16 08:52; Admin Dose 400 MG; Start 09/11/16 at 21:00 Fluconazole 200 ml @ 200 mls/hr Q24H IVPB Last administered on 09/13/16 15:30 ; Admin Dose 200 MLS/HR; Start 09/12/16 at 16:00 Dextrose/Sodium Chloride (D5-1/2ns) 1,000 ml @ 100 mls/hr Q10H IV Last administered on 09/14/16 12:14; Admin Dose 100 MLS/HR; Start 09/14/16 at 12:00 MAURICIO NOVOA Sep 14, 2016 14:04
[2016-09-14] MEDS: FLUCONAZOLE 400 MG/NS (PMX) 200 ML IVPB SCH (15:27)
--- NOTE | 2016-09-14 17:13 | PN ---
Date/Time of Note Date/Time of Note DATE: 09/14/16 TIME: 17:11 Assessment/Plan VTE Prophylaxis VTE Prophylaxis Intervention: heparin Lines/Catheters IV Catheter Type (from Nrsg): PICC Line Central line still needed: Yes (difficult peripheral access ) Urinary Cath still in place: No Assessment/Plan Assessment/Plan 1. Intractable nausea, severe esophagitis, follow up with biopsy from EGD 2. Acute bronchitis, negative CXR, on levaquin 3. Human immunodeficiency virus. Per patient, recent CD4 count almost 500 and viral load undetectable. resume medications 4. History of cerebrovascular accident with left-sided residual weakness. 5. Bipolar/depression. stable 6. Hypokalemia. resolved 7. Normocytic anemia, likely anemia of chronic disease. 8. DVT prophylaxis: heparin Subjective 24 Hr Interval Summary Free Text/Dictation doing ok, but still feels very weak, Dizziness when stands up Exam/Review of Systems Vital Signs Vitals Vital Signs Date Time Temp Pulse Resp B/P Pulse Ox O2 Delivery O2 Flow Rate FiO2 09/14/16 07:10 97.4 110 16 116/74 100 Intake and Output 09/13/16 09/13/16 09/14/16 15:00 23:00 07:00 Intake Total 360 ml 2240 ml 1850 ml Output Total 1150 ml 400 ml 1150 ml Balance -790 ml 1840 ml 700 ml Exam GENERAL: No acute distress. HEENT: No obvious head deformity. Pupils are reactive to light. CARDIOVASCULAR: Slightly tachycardic, regular rhythm. LUNGS: Minimally diminished breath sounds at the bases. ABDOMEN: Soft, nontender, nondistended. Positive bowel sounds. EXTREMITIES: No edema. NEUROLOGIC: non focal . Results Result Diagram: 09/13/16 0445 09/13/16 0445 Medications Medications Current Medications Ondansetron HCl (Zofran Inj) 4 mg Q6H PRN IV NAUSEA AND/OR VOMITING Last administered on 09/07/16 11:12; Admin Dose 4 MG; Start 09/04/16 at 16:30 Acetaminophen (Tylenol Tab) 650 mg Q6H PRN PO PAIN LEVEL 1-3 OR FEVER; Start at 16:30 Acetaminophen/ Hydrocodone Bitart ([place] (5/325)) 1 tab Q6H PRN PO MODERATE PAIN LEVEL 4-6 Last administered on 09/13/16 22:27; Admin Dose 1 TAB; Start at 16:30 Morphine Sulfate (morphine) 2 mg Q4H PRN IV SEVERE PAIN LEVEL 7-10 Last administered on 09/14/16 14:43; Admin Dose 2 MG; Start 09/04/16 at 16:30 Docusate Sodium (Colace) 100 mg Q12H PRN PO CONSTIPATION Last administered on 08:25; Admin Dose 100 MG; Start 09/04/16 at 16:30 Magnesium Hydroxide (Milk Of Mag) 30 ml DAILY PRN PO CONSTIPATION Last administered on 09/12/16 20:38; Admin Dose 30 ML; Start 09/04/16 at 16:30 Sodium Biphosphate/ Sodium Phosphate (Fleet Enema) 133 ml DAILY PRN [place] CONSTIPATION; Start 09/04/16 at 16:30 Heparin Sodium (Porcine) (Heparin (5000 Units/0.5 ml)) 5,000 unit Q12 SC Last administered on 09/14/16 08:53; Admin Dose 5,000 UNIT; Start 09/04/16 at 21:00 Lorazepam (Ativan) 0.5 mg Q6H PRN IV ANXIETY; Start 09/04/16 at 16:30 Hydralazine HCl (Apresoline) 10 mg Q6H PRN IV ELEVATED BLOOD PRESSURE; Start at 16:30 Nitroglycerin (Nitroglycerin (Sl Tab) 0.4 Mg) 1 tab Q5M PRN SL ANGINA; Start at 16:30 Lorazepam (Ativan) 1 mg Q6H PRN PO ANXIETY Last administered on 09/06/16 11:14 ; Admin Dose 1 MG; Start 09/06/16 at 10:00 IV Flush (NS 10 ml) 10 ml PRN PRN IV IV PROTOCOL Last administered on 15:08; Admin Dose 10 ML; Start 09/06/16 at 15:30 Zolpidem Tartrate (Ambien) 10 mg HS PRN PO INSOMNIA Last administered on 20:37; Admin Dose 10 MG; Start 09/07/16 at 02:30 Prochlorperazine (Compazine Inj) 5 mg Q6H PRN IV NAUSEA AND/OR VOMITING Last administered on 09/07/16 15:08; Admin Dose 5 MG; Start 09/07/16 at 14:30 Pantoprazole (Protonix Tab) 40 mg BID PO Last administered on 09/14/16 08:53; Admin Dose 40 MG; Start 09/07/16 at 21:00 Emtricitabine/ Tenofovir (Truvada) 1 tab DAILY PO Last administered on 08:53; Admin Dose 1 TAB; Start 09/09/16 at 09:00 Atazanavir (Reyataz) 300 mg WeFr@09 PO Last administered on 09/14/16 09:58; Admin Dose 300 MG; Start 09/12/16 at 09:00 Ritonavir (Norvir) 100 mg DAILY PO Last administered on 09/14/16 08:53; Admin Dose 100 MG; Start 09/09/16 at 09:00 Metoclopramide HCl (Reglan) 10 mg TID PO Last administered on 09/14/16 12:14; Admin Dose 10 MG; Start 09/11/16 at 13:00 Megestrol Acetate 400 mg 400 mg BID PO Last administered on 09/14/16 08:52; Admin Dose 400 MG; Start 09/11/16 at 21:00 Fluconazole 200 ml @ 200 mls/hr Q24H IVPB Last administered on 09/14/16 15:27 ; Admin Dose 200 MLS/HR; Start 09/12/16 at 16:00 Dextrose/Sodium Chloride (D5-1/2ns) 1,000 ml @ 100 mls/hr Q10H IV Last administered on 09/14/16 12:14; Admin Dose 100 MLS/HR; Start 09/14/16 at 12:00 MAYCOL FERRER MD Sep 14, 2016 17:13
[2016-09-14 21:44] VITALS: BP 133/87; RESP 19
[2016-09-14] MEDS: ZOLPIDEM 5 MG TAB PO PRN (22:32)
[2016-09-15] MEDS: morphine 2 MG INJ IV PRN ×3 (05:53→17:58)
[2016-09-15 08:00] VITALS: BP 121/85; RESP 17
[2016-09-15] MEDS: DEXTROSE 5%-0.45% NACL 1,000 ML IV SCH ×3 (08:35→22:13)
[2016-09-15] MEDS: PANTOPRAZOLE (EC) 40 MG TAB PO SCH ×2 (08:36→20:28)
[2016-09-15] MEDS: METOCLOPRAMIDE 10 MG TAB PO SCH ×3 (08:36→20:28)
[2016-09-15] MEDS: RITONAVIR 100 MG CAP PO SCH (08:36)
[2016-09-15] MEDS: EMTRICITABINE/TENOFOVIR TAB PO SCH (08:36)
[2016-09-15] MEDS: HYDROCODONE/APAP (5/325) TAB PO PRN ×2 (08:36→19:41)
[2016-09-15] MEDS: HEPARIN 5,000 UNIT/0.5 ML VIAL SC SCH ×2 (08:37→20:27)
[2016-09-15] MEDS: MEGESTROL (40 MG/ML) 10ML CUP PO SCH ×2 (08:39→20:28)
--- NOTE | 2016-09-15 15:17 | PN ---
Date/Time of Note Date/Time of Note DATE: 09/15/16 TIME: 15:15 Assessment/Plan VTE Prophylaxis VTE Prophylaxis Intervention: heparin Lines/Catheters IV Catheter Type (from Nrsg): PICC Line Central line still needed: No Urinary Cath still in place: No Assessment/Plan Assessment/Plan 1. Intractable nausea, severe esophagitis, follow up with biopsy from EGD 2. Acute bronchitis, negative CXR, on levaquin 3. confused, today - Pulled out his PICC Line, get IV peripheral access in RLE 3. Human immunodeficiency virus. Per patient, recent CD4 count almost 500 and viral load undetectable. resume medications 4. History of cerebrovascular accident with left-sided residual weakness. 5. Bipolar/depression. stable 6. Hypokalemia. resolved 7. Normocytic anemia, likely anemia of chronic disease. 8. DVT prophylaxis: heparin Subjective 24 Hr Interval Summary Free Text/Dictation confused today, pulled out his PICC line Exam/Review of Systems Vital Signs Vitals Vital Signs Date Time Temp Pulse Resp B/P Pulse Ox O2 Delivery O2 Flow Rate FiO2 09/15/16 08:00 98.8 119 17 121/85 100 Intake and Output 09/14/16 09/14/16 09/15/16 15:00 23:00 07:00 Intake Total 600 ml 1920 ml 1650 ml Output Total 1200 ml 1300 ml Balance 600 ml 720 ml 350 ml Exam GENERAL: confused, disoriented, thinks he is in Hotel HEENT: No obvious head deformity. Pupils are reactive to light. CARDIOVASCULAR: Slightly tachycardic, regular rhythm. LUNGS: Minimally diminished breath sounds at the bases. ABDOMEN: Soft, nontender, nondistended. Positive bowel sounds. EXTREMITIES: No edema. NEUROLOGIC: non focal . Results Result Diagram: 09/13/165 09/13/165 Medications Medications Current Medications Ondansetron HCl (Zofran Inj) 4 mg Q6H PRN IV NAUSEA AND/OR VOMITING Last administered on 09/07/16t 11:12; Admin Dose 4 MG; Start 09/04/16 at 16:30 Acetaminophen (Tylenol Tab) 650 mg Q6H PRN PO PAIN LEVEL 1-3 OR FEVER; Start at 16:30 Acetaminophen/ Hydrocodone Bitart ([place] (5/325)) 1 tab Q6H PRN PO MODERATE PAIN LEVEL 4-6 Last administered on 09/15/16 08:36; Admin Dose 1 TAB; Start at 16:30 Morphine Sulfate (morphine) 2 mg Q4H PRN IV SEVERE PAIN LEVEL 7-10 Last administered on 09/15/16 05:53; Admin Dose 2 MG; Start 09/04/16 at 16:30 Docusate Sodium (Colace) 100 mg Q12H PRN PO CONSTIPATION Last administered on 08:25; Admin Dose 100 MG; Start 09/04/16 at 16:30 Magnesium Hydroxide (Milk Of Mag) 30 ml DAILY PRN PO CONSTIPATION Last administered on 09/12/16 20:38; Admin Dose 30 ML; Start 09/04/16 at 16:30 Sodium Biphosphate/ Sodium Phosphate (Fleet Enema) 133 ml DAILY PRN [place] CONSTIPATION; Start 09/04/16 at 16:30 Heparin Sodium (Porcine) (Heparin (5000 Units/0.5 ml)) 5,000 unit Q12 SC Last administered on 09/15/16 08:37; Admin Dose 5,000 UNIT; Start 09/04/16 at 21:00 Hydralazine HCl (Apresoline) 10 mg Q6H PRN IV ELEVATED BLOOD PRESSURE; Start at 16:30 Nitroglycerin (Nitroglycerin (Sl Tab) 0.4 Mg) 1 tab Q5M PRN SL ANGINA; Start at 16:30 Lorazepam (Ativan) 1 mg Q6H PRN PO ANXIETY Last administered on 09/06/16 11:14 ; Admin Dose 1 MG; Start 09/06/16 at 10:00 IV Flush (NS 10 ml) 10 ml PRN PRN IV IV PROTOCOL Last administered on 15:08; Admin Dose 10 ML; Start 09/06/16 at 15:30 Zolpidem Tartrate (Ambien) 10 mg HS PRN PO INSOMNIA Last administered on 22:32; Admin Dose 10 MG; Start 09/07/16 at 02:30 Prochlorperazine (Compazine Inj) 5 mg Q6H PRN IV NAUSEA AND/OR VOMITING Last administered on 09/07/16 15:08; Admin Dose 5 MG; Start 09/07/16 at 14:30 Pantoprazole (Protonix Tab) 40 mg BID PO Last administered on 09/15/16 08:36; Admin Dose 40 MG; Start 09/07/16 at 21:00 Emtricitabine/ Tenofovir (Truvada) 1 tab DAILY PO Last administered on 08:36; Admin Dose 1 TAB; Start 09/09/16 at 09:00 Atazanavir (Reyataz) 300 mg WeFr@09 PO Last administered on 09/14/16 09:58; Admin Dose 300 MG; Start 09/12/16 at 09:00 Ritonavir (Norvir) 100 mg DAILY PO Last administered on 09/15/16 08:36; Admin Dose 100 MG; Start 09/09/16 at 09:00 Metoclopramide HCl (Reglan) 10 mg TID PO Last administered on 09/15/16 13:45; Admin Dose 10 MG; Start 09/11/16 at 13:00 Megestrol Acetate 400 mg 400 mg BID PO Last administered on 09/15/16 08:39; Admin Dose 400 MG; Start 09/11/16 at 21:00 Fluconazole 200 ml @ 200 mls/hr Q24H IVPB Last administered on 09/14/16 15:27 ; Admin Dose 200 MLS/HR; Start 09/12/16 at 16:00 Dextrose/Sodium Chloride (D5-1/2ns) 1,000 ml @ 100 mls/hr Q10H IV Last administered on 09/15/16 08:35; Admin Dose 100 MLS/HR; Start 09/14/16 at 12:00 MAYCOL FERRER MD Sep 15, 2016 15:17
--- NOTE | 2016-09-15 16:41 | PN ---
Date/Time of Note Date/Time of Note DATE: 09/15/16 TIME: 16:37 Assessment/Plan VTE Prophylaxis VTE Prophylaxis Intervention: SCD's Lines/Catheters IV Catheter Type (from Nrsg): Peripheral IV Urinary Cath still in place: No Assessment/Plan Assessment/Plan Assessment: Anemia Nausea/vomiting controlled * EGD 09/08/2016: Severe erosive esophagitis. Candidal esophagitis biopsy. Gastritis * Colonoscopy: polyp ascending colon History of HIV History of CVA Confusional state Plan: Continue present regimen Discharge at the discretion of PCP We will sign off and follow as needed Subjective 24 Hr Interval Summary Free Text/Dictation Course reviewed with nursing staff Patient is confused, he states he is in a hotel and wants to go home Plan discharge has been held by Dr. Mccoy No GI symptomatology We will sign off and follow as needed, upon request Exam/Review of Systems Vital Signs Vitals Vital Signs Date Time Temp Pulse Resp B/P Pulse Ox O2 Delivery O2 Flow Rate FiO2 09/15/16 08:00 98.8 119 17 121/85 100 Intake and Output 09/14/16 09/14/16 09/15/16 15:00 23:00 07:00 Intake Total 600 ml 1920 ml 1650 ml Output Total 1200 ml 1300 ml Balance 600 ml 720 ml 350 ml Exam Constitutional: alert, frail Neck: non-tender, supple Respiratory: clear to auscultation, diminished breath sounds, normal air movement Cardiovascular: nl pulses, regular rate and rhythm Gastrointestinal: non-tender, soft Musculoskeletal: nl extremities to inspection Results Result Diagram: 09/13/16 0445 09/13/16 0445 Medications Medications Current Medications Ondansetron HCl (Zofran Inj) 4 mg Q6H PRN IV NAUSEA AND/OR VOMITING Last administered on 09/07/16 11:12; Admin Dose 4 MG; Start 09/04/16 at 16:30 Acetaminophen (Tylenol Tab) 650 mg Q6H PRN PO PAIN LEVEL 1-3 OR FEVER; Start at 16:30 Acetaminophen/ Hydrocodone Bitart ([place] (5/325)) 1 tab Q6H PRN PO MODERATE PAIN LEVEL 4-6 Last administered on 09/15/16 08:36; Admin Dose 1 TAB; Start at 16:30 Morphine Sulfate (morphine) 2 mg Q4H PRN IV SEVERE PAIN LEVEL 7-10 Last administered on 09/15/16 05:53; Admin Dose 2 MG; Start 09/04/16 at 16:30 Docusate Sodium (Colace) 100 mg Q12H PRN PO CONSTIPATION Last administered on 08:25; Admin Dose 100 MG; Start 09/04/16 at 16:30 Magnesium Hydroxide (Milk Of Mag) 30 ml DAILY PRN PO CONSTIPATION Last administered on 09/12/16 20:38; Admin Dose 30 ML; Start 09/04/16 at 16:30 Sodium Biphosphate/ Sodium Phosphate (Fleet Enema) 133 ml DAILY PRN [place] CONSTIPATION; Start 09/04/16 at 16:30 Heparin Sodium (Porcine) (Heparin (5000 Units/0.5 ml)) 5,000 unit Q12 SC Last administered on 09/15/16 08:37; Admin Dose 5,000 UNIT; Start 09/04/16 at 21:00 Hydralazine HCl (Apresoline) 10 mg Q6H PRN IV ELEVATED BLOOD PRESSURE; Start at 16:30 Nitroglycerin (Nitroglycerin (Sl Tab) 0.4 Mg) 1 tab Q5M PRN SL ANGINA; Start at 16:30 Lorazepam (Ativan) 1 mg Q6H PRN PO ANXIETY Last administered on 09/06/16 11:14 ; Admin Dose 1 MG; Start 09/06/16 at 10:00 IV Flush (NS 10 ml) 10 ml PRN PRN IV IV PROTOCOL Last administered on 15:08; Admin Dose 10 ML; Start 09/06/16 at 15:30 Zolpidem Tartrate (Ambien) 10 mg HS PRN PO INSOMNIA Last administered on 22:32; Admin Dose 10 MG; Start 09/07/16 at 02:30 Prochlorperazine (Compazine Inj) 5 mg Q6H PRN IV NAUSEA AND/OR VOMITING Last administered on 09/07/16 15:08; Admin Dose 5 MG; Start 09/07/16 at 14:30 Pantoprazole (Protonix Tab) 40 mg BID PO Last administered on 09/15/16 08:36; Admin Dose 40 MG; Start 09/07/16 at 21:00 Emtricitabine/ Tenofovir (Truvada) 1 tab DAILY PO Last administered on 08:36; Admin Dose 1 TAB; Start 09/09/16 at 09:00 Atazanavir (Reyataz) 300 mg WeFr@09 PO Last administered on 09/14/16 09:58; Admin Dose 300 MG; Start 09/12/16 at 09:00 Ritonavir (Norvir) 100 mg DAILY PO Last administered on 09/15/16 08:36; Admin Dose 100 MG; Start 09/09/16 at 09:00 Metoclopramide HCl (Reglan) 10 mg TID PO Last administered on 09/15/16 13:45; Admin Dose 10 MG; Start 09/11/16 at 13:00 Megestrol Acetate 400 mg 400 mg BID PO Last administered on 09/15/16 08:39; Admin Dose 400 MG; Start 09/11/16 at 21:00 Fluconazole 200 ml @ 200 mls/hr Q24H IVPB Last administered on 09/14/16 15:27 ; Admin Dose 200 MLS/HR; Start 09/12/16 at 16:00 Dextrose/Sodium Chloride (D5-1/2ns) 1,000 ml @ 100 mls/hr Q10H IV Last administered on 09/15/16 08:35; Admin Dose 100 MLS/HR; Start 09/14/16 at 12:00 JOSE NANCE MD Sep 15, 2016 16:41
[2016-09-15] MEDS: FLUCONAZOLE 400 MG/NS (PMX) 200 ML IVPB SCH (17:57)
[2016-09-15 20:09] VITALS: BP 132/73; RESP 18
[2016-09-15] MEDS: ZOLPIDEM 5 MG TAB PO PRN (22:07)
[2016-09-16] MEDS: DOCUSATE SODIUM 100 MG CAP PO PRN (07:00)
[2016-09-16] MEDS: MAGNESIUM HYDROXIDE 30ML CUP PO PRN ×2 (07:00→20:36)
[2016-09-16 07:40] VITALS: BP 124/92; RESP 17
[2016-09-16] MEDS: MEGESTROL (40 MG/ML) 10ML CUP PO SCH ×2 (10:47→20:35)
[2016-09-16] MEDS: RITONAVIR 100 MG CAP PO SCH (10:48)
[2016-09-16] MEDS: METOCLOPRAMIDE 10 MG TAB PO SCH ×3 (10:48→20:35)
[2016-09-16] MEDS: PANTOPRAZOLE (EC) 40 MG TAB PO SCH ×2 (10:48→20:35)
[2016-09-16] MEDS: EMTRICITABINE/TENOFOVIR TAB PO SCH (10:48)
[2016-09-16] MEDS: HYDROCODONE/APAP (5/325) TAB PO PRN ×2 (10:48→20:36)
[2016-09-16] MEDS: DEXTROSE 5%-0.45% NACL 1,000 ML IV SCH ×2 (10:49→22:24)
[2016-09-16] MEDS: HEPARIN 5,000 UNIT/0.5 ML VIAL SC SCH ×2 (10:50→20:37)
--- NOTE | 2016-09-16 15:15 | PN ---
Date/Time of Note Date/Time of Note DATE: 09/16/16 TIME: 15:11 Assessment/Plan VTE Prophylaxis VTE Prophylaxis Intervention: heparin Lines/Catheters IV [facility]ter Type [facility]from [facility]): Peripheral IV Urinary Cath still in place: No Assessment/Plan Assessment/Plan 1. Intractable nausea, severe Candidial esophagitis Biopy showed candididal esophagitis, negative for malignancy 2. Acute bronchitis, negative CXR, on levaquin 3. Altered mental status- Pulled out his PICC Line, get IV peripheral access in RLE - Improving 3. Human immunodeficiency virus. Per patient, recent CD4 count almost 500 and viral load undetectable. resume medications 4. History of cerebrovascular accident with left-sided residual weakness. 5. Bipolar/depression. stable 6. Hypokalemia. resolved 7. Normocytic anemia, likely anemia of chronic disease. 8. DVT prophylaxis: heparin 9. Sinus tachycardia, pt is aleardy on IVF at 100 cc/hr start MTP 12.5 mg BID, Continue IVF at 100 cc/hr SNF placement for d/c planning Subjective 24 Hr Interval Summary Free Text/Dictation improving confusion, ate lunch, HR still 100- 120s Exam/Review of Systems Vital Signs Vitals Vital Signs Date Time Temp Pulse Resp B/P Pulse Ox O2 Delivery O2 Flow Rate FiO2 09/16/16 07:40 98.3 120 17 124/92 100 Intake and Output 09/15/16 09/15/16 09/16/16 15:00 23:00 07:00 Intake Total 1180 ml 1200 ml Output Total 800 ml 300 ml Balance 380 ml 900 ml Exam GENERAL: less confused today, ate his lunch HEENT: No obvious head deformity. Pupils are reactive to light. CARDIOVASCULAR: Slightly tachycardic, regular rhythm. LUNGS: Minimally diminished breath sounds at the bases. ABDOMEN: Soft, nontender, nondistended. Positive bowel sounds. EXTREMITIES: No edema. NEUROLOGIC: non focal . Results Result Diagram: 09/13/16 0445 09/13/16 0445 Medications Medications Current Medications Ondansetron HCl (Zofran Inj) 4 mg Q6H PRN IV NAUSEA AND/OR VOMITING Last administered on 09/07/16t 11:12; Admin Dose 4 MG; Start 09/04/16 at 16:30 Acetaminophen (Tylenol Tab) 650 mg Q6H PRN PO PAIN LEVEL 1-3 OR FEVER; Start at 16:30 Acetaminophen/ Hydrocodone Bitart ([place] (5/325)) 1 tab Q6H PRN PO MODERATE PAIN LEVEL 4-6 Last administered on 09/16/16 10:48; Admin Dose 1 TAB; Start at 16:30 Morphine Sulfate (morphine) 2 mg Q4H PRN IV SEVERE PAIN LEVEL 7-10 Last administered on 09/15/16 17:58; Admin Dose 2 MG; Start 09/04/16 at 16:30 Docusate Sodium (Colace) 100 mg Q12H PRN PO CONSTIPATION Last administered on 07:00; Admin Dose 100 MG; Start 09/04/16 at 16:30 Magnesium Hydroxide (Milk Of Mag) 30 ml DAILY PRN PO CONSTIPATION Last administered on 09/16/16 07:00; Admin Dose 30 ML; Start 09/04/16 at 16:30 Sodium Biphosphate/ Sodium Phosphate (Fleet Enema) 133 ml DAILY PRN [place] CONSTIPATION; Start 09/04/16 at 16:30 Heparin Sodium (Porcine) (Heparin (5000 Units/0.5 ml)) 5,000 unit Q12 SC Last administered on 09/16/16 10:50; Admin Dose 5,000 UNIT; Start 09/04/16 at 21:00 Hydralazine HCl (Apresoline) 10 mg Q6H PRN IV ELEVATED BLOOD PRESSURE; Start at 16:30 Nitroglycerin (Nitroglycerin (Sl Tab) 0.4 Mg) 1 tab Q5M PRN SL ANGINA; Start at 16:30 Lorazepam (Ativan) 1 mg Q6H PRN PO ANXIETY Last administered on 09/06/16 11:14 ; Admin Dose 1 MG; Start 09/06/16 at 10:00 IV Flush (NS 10 ml) 10 ml PRN PRN IV IV PROTOCOL Last administered on 15:08; Admin Dose 10 ML; Start 09/06/16 at 15:30 Zolpidem Tartrate (Ambien) 10 mg HS PRN PO INSOMNIA Last administered on 22:07; Admin Dose 10 MG; Start 09/07/16 at 02:30 Prochlorperazine (Compazine Inj) 5 mg Q6H PRN IV NAUSEA AND/OR VOMITING Last administered on 09/07/16 15:08; Admin Dose 5 MG; Start 09/07/16 at 14:30 Pantoprazole (Protonix Tab) 40 mg BID PO Last administered on 09/16/16 10:48; Admin Dose 40 MG; Start 09/07/16 at 21:00 Emtricitabine/ Tenofovir (Truvada) 1 tab DAILY PO Last administered on 10:48; Admin Dose 1 TAB; Start 09/09/16 at 09:00 Atazanavir (Reyataz) 300 mg WeFr@09 PO Last administered on 09/14/16 09:58; Admin Dose 300 MG; Start 09/12/16 at 09:00 Ritonavir (Norvir) 100 mg DAILY PO Last administered on 09/16/16 10:48; Admin Dose 100 MG; Start 09/09/16 at 09:00 Metoclopramide HCl (Reglan) 10 mg TID PO Last administered on 09/16/16 10:48; Admin Dose 10 MG; Start 09/11/16 at 13:00 Megestrol Acetate 400 mg 400 mg BID PO Last administered on 09/16/16 10:47; Admin Dose 400 MG; Start 09/11/16 at 21:00 Fluconazole 200 ml @ 200 mls/hr Q24H IVPB Last administered on 09/15/16 17:57 ; Admin Dose 200 MLS/HR; Start 09/12/16 at 16:00 Dextrose/Sodium Chloride (D5-1/2ns) 1,000 ml @ 100 mls/hr Q10H IV Last administered on 09/16/16 10:49; Admin Dose 100 MLS/HR; Start 09/14/16 at 12:00 MAYCOL FERRER MD Sep 16, 2016 15:15
[2016-09-16] MEDS: FLUCONAZOLE 400 MG/NS (PMX) 200 ML IVPB SCH (16:15)
[2016-09-16] MEDS: morphine 2 MG INJ IV PRN (16:16)
[2016-09-16 20:02] VITALS: BP 125/78; RESP 17
[2016-09-16] MEDS: METOPROLOL 25 MG TAB PO SCH (20:35)
[2016-09-16] MEDS: ZOLPIDEM 5 MG TAB PO PRN (22:23)
[2016-09-17] MEDS: morphine 2 MG INJ IV PRN ×4 (00:30→17:49)
[2016-09-17 07:41] VITALS: BP 117/93; RESP 20
[2016-09-17] MEDS: EMTRICITABINE/TENOFOVIR TAB PO SCH (08:32)
[2016-09-17] MEDS: RITONAVIR 100 MG CAP PO SCH (08:32)
[2016-09-17] MEDS: PANTOPRAZOLE (EC) 40 MG TAB PO SCH ×2 (08:32→20:41)
[2016-09-17] MEDS: HEPARIN 5,000 UNIT/0.5 ML VIAL SC SCH (08:33)
[2016-09-17] MEDS: METOPROLOL 25 MG TAB PO SCH ×2 (08:33→20:41)
[2016-09-17] MEDS: MEGESTROL (40 MG/ML) 10ML CUP PO SCH (08:33)
[2016-09-17] MEDS: METOCLOPRAMIDE 10 MG TAB PO SCH ×3 (09:53→20:41)
[2016-09-17] MEDS: DEXTROSE 5%-0.45% NACL 1,000 ML IV SCH (09:53)
--- NOTE | 2016-09-17 13:56 | PN ---
Date/Time of Note Date/Time of Note DATE: 09/17/16 TIME: 13:53 Assessment/Plan VTE Prophylaxis VTE Prophylaxis Intervention: LMWH Lines/Catheters IV Catheter Type (from Nrs): Peripheral IV Urinary Cath still in place: No Assessment/Plan Chief Complaint/Hosp Course Subjective: Events noted. Delirium? Trying regular diet. Objective: Vital signs stable some sinus tachycardia PE no pallor droop Regular Clear Bs present, nontender, nondistended, no R/R/G No edema Neuro: Nonfocal Assessment and plan 1. Dyspnea related to bronchitis. GERD? stable cont supportive care 2. Recent pneumonia 3. Chronic HIV 4. Left hemiparesis stroke. Aspirin? 5. Bipolar disorder 6. Dysphagia 7. Severe candidal esophagitis. Decrease Reglan due to delirium 8. Hypoalbuminemia 9. Chronic gastritis. H pylori negative. 10. Delirium? Decreased benzodiazepines. Decrease or DC Reglan. Ambulate. 11. Failure to thrive, transfer to snf. Fluconazole changed to po. Problems: Exam/Review of Systems Vital Signs Vitals Vital Signs Date Time Temp Pulse Resp B/P Pulse Ox O2 Delivery O2 Flow Rate FiO2 09/17/16 07:41 98.4 105 20 117/93 98 Intake and Output 09/16/16 09/16/16 09/17/16 14:59 22:59 06:59 Intake Total 300 ml 2150 ml 1190 ml Output Total 1450 ml 1350 ml Balance 300 ml 700 ml -160 ml Results Result Diagram: 09/13/165 09/13/165 Medications Medications Current Medications Ondansetron HCl (Zofran Inj) 4 mg Q6H PRN IV NAUSEA AND/OR VOMITING Last administered on 09/07/16 11:12; Admin Dose 4 MG; Start 09/04/16 at 16:30 Acetaminophen (Tylenol Tab) 650 mg Q6H PRN PO PAIN LEVEL 1-3 OR FEVER; Start at 16:30 Acetaminophen/ Hydrocodone Bitart ([place] (5/325)) 1 tab Q6H PRN PO MODERATE PAIN LEVEL 4-6 Last administered on 09/16/16 20:36; Admin Dose 1 TAB; Start at 16:30 Morphine Sulfate (morphine) 2 mg Q4H PRN IV SEVERE PAIN LEVEL 7-10 Last administered on 09/17/16 13:05; Admin Dose 2 MG; Start 09/04/16 at 16:30 Docusate Sodium (Colace) 100 mg Q12H PRN PO CONSTIPATION Last administered on 07:00; Admin Dose 100 MG; Start 09/04/16 at 16:30 Magnesium Hydroxide (Milk Of Mag) 30 ml DAILY PRN PO CONSTIPATION Last administered on 09/16/16 20:36; Admin Dose 30 ML; Start 09/04/16 at 16:30 Sodium Biphosphate/ Sodium Phosphate (Fleet Enema) 133 ml DAILY PRN [place] CONSTIPATION; Start 09/04/16 at 16:30 Heparin Sodium (Porcine) (Heparin (5000 Units/0.5 ml)) 5,000 unit Q12 SC Last administered on 09/17/16 08:33; Admin Dose 5,000 UNIT; Start 09/04/16 at 21:00 Hydralazine HCl (Apresoline) 10 mg Q6H PRN IV ELEVATED BLOOD PRESSURE; Start at 16:30 Nitroglycerin (Nitroglycerin (Sl Tab) 0.4 Mg) 1 tab Q5M PRN SL ANGINA; Start at 16:30 Lorazepam (Ativan) 1 mg Q6H PRN PO ANXIETY Last administered on 09/06/16 11:14 ; Admin Dose 1 MG; Start 09/06/16 at 10:00 IV Flush (NS 10 ml) 10 ml PRN PRN IV IV PROTOCOL Last administered on 15:08; Admin Dose 10 ML; Start 09/06/16 at 15:30 Zolpidem Tartrate (Ambien) 10 mg HS PRN PO INSOMNIA Last administered on 22:23; Admin Dose 10 MG; Start 09/07/16 at 02:30 Prochlorperazine (Compazine Inj) 5 mg Q6H PRN IV NAUSEA AND/OR VOMITING Last administered on 09/07/16 15:08; Admin Dose 5 MG; Start 09/07/16 at 14:30 Pantoprazole (Protonix Tab) 40 mg BID PO Last administered on 09/17/16 08:32; Admin Dose 40 MG; Start 09/07/16 at 21:00 Emtricitabine/ Tenofovir (Truvada) 1 tab DAILY PO Last administered on 08:32; Admin Dose 1 TAB; Start 09/09/16 at 09:00 Atazanavir (Reyataz) 300 mg WeFr@09 PO Last administered on 09/14/16 09:58; Admin Dose 300 MG; Start 09/12/16 at 09:00 Ritonavir (Norvir) 100 mg DAILY PO Last administered on 09/17/16 08:32; Admin Dose 100 MG; Start 09/09/16 at 09:00 Metoclopramide HCl (Reglan) 10 mg TID PO Last administered on 09/17/16 13:04; Admin Dose 10 MG; Start 09/11/16 at 13:00 Megestrol Acetate 400 mg 400 mg BID PO Last administered on 09/17/16 08:33; Admin Dose 400 MG; Start 09/11/16 at 21:00 Fluconazole 200 ml @ 200 mls/hr Q24H IVPB Last administered on 09/16/16 16:15 ; Admin Dose 200 MLS/HR; Start 09/12/16 at 16:00 Dextrose/Sodium Chloride (D5-1/2ns) 1,000 ml @ 100 mls/hr Q10H IV Last administered on 09/17/16 09:53; Admin Dose 100 MLS/HR; Start 09/14/16 at 12:00 Metoprolol Tartrate (Lopressor) 12.5 mg BID PO Last administered on 09/17/16 08 :33; Admin Dose 12.5 MG; Start 09/16/16 at 21:00 MELVA MOSQUEDA MD Sep 17, 2016 13:56
--- NOTE | 2016-09-17 14:36 | PDOCDIS ---
Discharge Instructions DIAGNOSIS Discharge Diagnosis: esophagitis CONDITION Patient Condition: Good HOME CARE INSTRUCTIONS: Special Diet: low fat low cholesterol; avoid fish bones ACTIVITY: Activity Restrictions: Slowly Increase Activity Do not Drive FOLLOW UP/APPOINTMENTS Appointments primary - 1wk Dr Sosa 2-3wks MELVA MOSQUEDA MD Sep 17, 2016 14:36
[2016-09-17] MEDS ORDERED: METO-448 PO (14:39)
[2016-09-17] MEDS ORDERED: METO10TA96 PO (14:39)
[2016-09-17] MEDS ORDERED: PANT40TA4 PO (14:39)
[2016-09-17] MEDS ORDERED: FLUC200T36 PO (14:39)
[2016-09-17] MEDS ORDERED: ACET325T40 PO (14:39)
[2016-09-17] MEDS: HYDROCODONE/APAP (5/325) TAB PO PRN (15:47)
[2016-09-17] MEDS: FLUCONAZOLE 200 MG TAB PO SCH (16:50)
[2016-09-17 20:31] VITALS: BP 123/82; RESP 18
[2016-09-17] MEDS: LORAZEPAM 0.5 MG TAB PO PRN (20:45)
--- NOTE | 2016-09-17 21:21 | DS ---
DATE OF ADMISSION: 09/04/2016 DATE OF DISCHARGE: 09/17/2016 PRIMARY CARE PHYSICIAN: Unknown. ASSISTANT STATISTICIAN: Dr. Sosa DIAGNOSIS ON ADMISSION: Dyspnea. DIAGNOSES ON DISCHARGE: 1. Acute bronchitis. 2. Possible gastroesophageal reflux disease. 3. Recent pneumonia. 4. Severe candidal esophagitis. 5. Possible gastroesophageal reflux disease. 7. Chronic HIV. 8. Left hemiparesis/stroke. 9. Chronic bipolar disorder. 10. Dysphagia. 11. Hypoalbuminemia. 12. Chronic gastritis. 13. Delirium. 14. Failure to thrive. 15. Possible seizure disorder, continue Keppra. 16. Major depression. HOSPITAL COURSE: This is a 50-year-old gentleman admitted with cough, chest x-ray fairly unremarkab le. He was evaluated and treated for bronchitis. Seen by GI. Endoscopy revealed severe esophagiti s. The patient is presently stable and fit for discharge. He is tolerating diet on Reglan PPI. He will finish fluconazole. He will need to follow up with GI. No evidence of H. pylori. No evidenc e of malignancy. HIV status noted. CD4 count 532, apparently. In terms of delirium, I would recommend discontinuing or cutting back on benzodiazepines. Reglan ma y be an issue, therefore I will not be able to use full dose for his esophagitis. The patient is aw flores, alert and oriented to year and hospital, but not month; he stated it was . In terms of failure to thrive, he does not have adequate home support at this time; therefore, he wi ll go to the skilled nurse facility for a short duration of time. MEDICATIONS: 1. Tylenol as needed. 2. Atazanavir 300 mg, Saturday and Saturday. 3. Truvada 1 tablet daily. 4. Lovenox 40 subQ daily for one week. 5. Fluconazole 400 mg daily for 14 days. 6. Reglan 5 mg b.i.d. 7. Lopressor 12.5 b.i.d. 8. Protonix 40 b.i.d. 9. Norvir 100 mg 10. Wellbutrin 75 daily. 11. Lexapro 10 daily. 12. Fluticasone nasal spray 1 spray daily. 13. Keppra 1000 b.i.d. 14. Asmanex 2 puffs daily at bedtime. 15. Lyrica 75 b.i.d. 16. Seroquel XR 300 nightly. 17. Tylenol as needed. LABORATORY DATA: Sodium 134, potassium 3.5, chloride 113, bicarbonate 24, BUN of 5, creatinine 0.55 , glucose of 90, calcium 7.2, mag of 2.0 a few days ago, bilirubin 1.4, direct of 1.4, total of 0, A ST and ALT of 25 and 35, alkaline phosphatase of 80, albumin 2.2, protein of 5.8, triglycerides 94, total of 90, LDL of 41, HDL 30. TSH of 2.1. A1c of 5.4%. Alk phos and LDH are improved. INR 1.3. White cell count of 8, hemoglobin and hematocrit of 9 and 26, MCV of 94, platelets of 177. Influe nza and blood cultures are negative. PATHOLOGY: EGD biopsy showed chronic gastritis. No H. pylori. Candidal esophagitis seen. IMAGING STUDIES: Chest x-ray on admission: No acute process. PICC line placed by radiology. Old healed left rib fractures. ORIF, left humerus. Dictated By: MELVA ANDERSON/NITHIN Conf#: [id number] DID#: [id number]
[2016-09-18] MEDS: morphine 2 MG INJ IV PRN ×4 (04:54→19:57)
[2016-09-18 05:53] LABS: ADD SCAN DIFF NO
[2016-09-18 06:00] LABS: BASOPHILS % 0.2 % (0.0-2.0); EOSINOPHILS # 0.1 10^3/ul (0.0-0.5); EOSINOPHILS % 0.6 % (0.0-7.0); HEMATOCRIT 28.1 % (42.0-52.0); HEMOGLOBIN 9.1 g/dl (14.0-18.0); LYMPHOCYTES # 2.1 10^3/ul (0.8-2.9); MEAN CORPUSCULAR HEMOGLOBIN 31.8 pg (29.0-33.0); MEAN CORPUSCULAR HGB CONC 32.4 g/dl (32.0-37.0); MEAN CORPUSCULAR VOLUME 98.3 fl (82.0-101.0); MEAN PLATELET VOLUME 10.3 fl (7.4-10.4); MONOCYTE # 0.7 10^3/ul (0.3-0.9); MONOCYTES % 6.7 % (0.0-11.0); NEUTROPHIL # 7.1 10^3/ul (1.6-7.5); NEUTROPHILS % 70.8 % (39.0-77.0); PLATELET COUNT 295 10^3/UL (140-415); RED BLOOD COUNT 2.86 10^6/ul (4.70-6.10); RED CELL DISTRIBUTION WIDTH 18.9 % (11.5-14.5)
[2016-09-18 06:28] LABS: ALBUMIN 2.7 g/dl (3.3-4.9); ALBUMIN/GLOBULIN RATIO 0.69; BILIRUBIN,INDIRECT 0.1 mg/dl (0-1.1); BILIRUBIN,TOTAL 0.1 mg/dl (0.2-1.3); CALCIUM 8.1 mg/dl (8.4-10.2); CREATININE 0.89 mg/dl (0.61-1.24); PHOSPHORUS 3.3 mg/dl (2.5-4.9); POTASSIUM 3.9 mmol/L (3.5-5.1); TOTAL PROTEIN 6.6 g/dl (6.1-8.1)
[2016-09-18 06:53] LABS: THYROID STIMULATING HORMONE 2.75 MIU/L (0.465-4.680)
[2016-09-18 07:32] LABS: FOLATE 2.2 ng/ml (2.8-20.0)
[2016-09-18 08:28] VITALS: BP 133/95; PULSE 109; RESP 20
[2016-09-18] MEDS: EMTRICITABINE/TENOFOVIR TAB PO SCH (08:30)
[2016-09-18] MEDS: METOPROLOL 25 MG TAB PO SCH ×2 (08:30→21:08)
[2016-09-18] MEDS: PANTOPRAZOLE (EC) 40 MG TAB PO SCH ×2 (08:30→21:07)
[2016-09-18] MEDS: ENOXAPARIN 40 MG/0.4 ML SYG SC SCH (08:32)
[2016-09-18] MEDS: RITONAVIR 100 MG CAP PO SCH (08:32)
[2016-09-18] MEDS: FLUCONAZOLE 200 MG TAB PO SCH (08:32)
[2016-09-18] MEDS: METOCLOPRAMIDE 10 MG TAB PO SCH ×2 (08:33→21:06)
--- NOTE | 2016-09-18 10:50 | PN ---
Date/Time of Note Date/Time of Note DATE: 09/18/16 TIME: 10:48 Assessment/Plan VTE Prophylaxis VTE Prophylaxis Intervention: LMWH Lines/Catheters IV Catheter Type (from Nrs): Peripheral IV Urinary Cath still in place: No Assessment/Plan Chief Complaint/Hosp Course Subjective: 09/17 events noted. Delirium? Trying regular diet. 09/18 doing well O: Vss PE no pallor droop Reg Clear Bs present, nt nd, no R/R/G No edema Neuro: Nonfocal A/P 1. Dyspnea related to bronchitis. GERD? stable cont supportive care 2. Recent pneumonia 3. Chronic HIV 4. Left hemiparesis stroke. Aspirin? 5. Bipolar disorder 6. Dysphagia 7. Severe candidal esophagitis. Decrease Reglan due to delirium 8. Hypoalbuminemia 9. Chronic gastritis. H pylori negative. 10. Delirium? Decreased benzodiazepines. Decreased Reglan. Ambulate. 11. Ftt. transfer to snf. Fluconazole changed to po. Problems: Exam/Review of Systems Vital Signs Vitals Vital Signs Date Time Temp Pulse Resp B/P Pulse Ox O2 Delivery O2 Flow Rate FiO2 09/18/16 08:28 98.3 109 20 133/95 97 Room Air Intake and Output 09/17/16 09/17/16 09/18/16 15:00 23:00 07:00 Intake Total 350 ml 2180 ml 950 ml Output Total 750 ml 1000 ml Balance 350 ml 1430 ml -50 ml Results Result Diagram: 09/18/16 0459 09/18/16 0454 Results 24 hrs Laboratory Tests Test 09/18/16 04:54 09/18/16 04:59 Sodium Level 136 Potassium Level 3.9 Chloride Level 108 Carbon Dioxide Level 23 Anion Gap 9 Blood Urea Nitrogen 11 Creatinine 0.89 Glucose Level 91 Calcium Level 8.1 L Phosphorus Level 3.3 Magnesium Level 2.0 Total Bilirubin 0.1 L Direct Bilirubin 0.00 Indirect Bilirubin 0.1 Aspartate Amino Transf (AST/SGOT) 22 Alanine Aminotransferase (ALT/SGPT) 39 Alkaline Phosphatase 79 Total Protein 6.6 Albumin 2.7 L Globulin 3.90 H Albumin/Globulin Ratio 0.69 Vitamin B12 Level 847 Folate 2.2 L Thyroid Stimulating Hormone (TSH) 2.750 White Blood Count 10.0 # Red Blood Count 2.86 L Hemoglobin 9.1 L Hematocrit 28.1 L Mean Corpuscular Volume 98.3 Mean Corpuscular Hemoglobin 31.8 Mean Corpuscular Hemoglobin Concent 32.4 Red Cell Distribution Width 18.9 H Platelet Count 295 # Mean Platelet Volume 10.3 Neutrophils % 70.8 Lymphocytes % 21.0 Monocytes % 6.7 Eosinophils % 0.6 Basophils % 0.2 Nucleated Red Blood Cells % 0.0 Neutrophils # 7.1 Lymphocytes # 2.1 Monocytes # 0.7 Eosinophils # 0.1 Basophils # 0.0 Nucleated Red Blood Cells # 0.0 Free Thyroxine 1.03 Medications Medications Current Medications Ondansetron HCl (Zofran Inj) 4 mg Q6H PRN IV NAUSEA AND/OR VOMITING Last administered on 09/07/16 11:12; Admin Dose 4 MG; Start 09/04/16 at 16:30 Acetaminophen (Tylenol Tab) 650 mg Q6H PRN PO PAIN LEVEL 1-3 OR FEVER; Start at 16:30 Acetaminophen/ Hydrocodone Bitart ([place] (5/325)) 1 tab Q6H PRN PO MODERATE PAIN LEVEL 4-6 Last administered on 09/17/16 15:47; Admin Dose 1 TAB; Start at 16:30 Morphine Sulfate (morphine) 2 mg Q4H PRN IV SEVERE PAIN LEVEL 7-10 Last administered on 09/18/16 10:18; Admin Dose 2 MG; Start 09/04/16 at 16:30 Docusate Sodium (Colace) 100 mg Q12H PRN PO CONSTIPATION Last administered on 07:00; Admin Dose 100 MG; Start 09/04/16 at 16:30 Magnesium Hydroxide (Milk Of Mag) 30 ml DAILY PRN PO CONSTIPATION Last administered on 09/16/16 20:36; Admin Dose 30 ML; Start 09/04/16 at 16:30 Sodium Biphosphate/ Sodium Phosphate (Fleet Enema) 133 ml DAILY PRN IN CONSTIPATION; Start 09/04/16 at 16:30 Hydralazine HCl (Apresoline) 10 mg Q6H PRN IV ELEVATED BLOOD PRESSURE; Start at 16:30 Nitroglycerin (Nitroglycerin (Sl Tab) 0.4 Mg) 1 tab Q5M PRN SL ANGINA; Start at 16:30 IV Flush (NS 10 ml) 10 ml PRN PRN IV IV PROTOCOL Last administered on 15:08; Admin Dose 10 ML; Start 09/06/16 at 15:30 Prochlorperazine (Compazine Inj) 5 mg Q6H PRN IV NAUSEA AND/OR VOMITING Last administered on 09/07/16 15:08; Admin Dose 5 MG; Start 09/07/16 at 14:30 Pantoprazole (Protonix Tab) 40 mg BID PO Last administered on 09/18/16 08:30; Admin Dose 40 MG; Start 09/07/16 at 21:00 Emtricitabine/ Tenofovir (Truvada) 1 tab DAILY PO Last administered on 08:30; Admin Dose 1 TAB; Start 09/09/16 at 09:00 Atazanavir (Reyataz) 300 mg WeFr@09 PO Last administered on 09/14/16 09:58; Admin Dose 300 MG; Start 09/12/16 at 09:00 Ritonavir (Norvir) 100 mg DAILY PO Last administered on 09/18/16 08:32; Admin Dose 100 MG; Start 09/09/16 at 09:00 Metoprolol Tartrate (Lopressor) 12.5 mg BID PO Last administered on 09/18/16 08 :30; Admin Dose 12.5 MG; Start 09/16/16 at 21:00 Lorazepam (Ativan) 1 mg Q12 PRN PO ANXIETY Last administered on 09/17/16 20:45 ; Admin Dose 1 MG; Start 09/17/16 at 21:00 Metoclopramide HCl (Reglan) 5 mg BID PO Last administered on 09/18/16 08:33; Admin Dose 5 MG; Start 09/17/16 at 21:00 Enoxaparin Sodium (Lovenox) 40 mg DAILY SC Last administered on 09/18/16 08:32 ; Admin Dose 40 MG; Start 09/18/16 at 09:00 Fluconazole (Diflucan) 400 mg DAILY PO Last administered on 09/18/16 08:32; Admin Dose 400 MG; Start 09/17/16 at 16:00 MELVA MOSQUEDA MD Sep 18, 2016 10:50
[2016-09-18] MEDS: HYDROCODONE/APAP (5/325) TAB PO PRN (13:58)
[2016-09-18 21:00] VITALS: BP 140/89; RESP 19
[2016-09-18] MEDS: LORAZEPAM 0.5 MG TAB PO PRN (21:07)
[2016-09-19] MEDS: morphine 2 MG INJ IV PRN ×4 (02:56→21:10)
[2016-09-19 08:16] VITALS: BP 150/102; RESP 18
[2016-09-19] MEDS: EMTRICITABINE/TENOFOVIR TAB PO SCH (08:57)
[2016-09-19] MEDS: PANTOPRAZOLE (EC) 40 MG TAB PO SCH ×2 (08:58→20:58)
[2016-09-19] MEDS: RITONAVIR 100 MG CAP PO SCH (08:58)
[2016-09-19] MEDS: METOCLOPRAMIDE 10 MG TAB PO SCH ×2 (08:58→20:59)
[2016-09-19] MEDS: METOPROLOL 25 MG TAB PO SCH ×2 (08:58→21:00)
[2016-09-19] MEDS: FLUCONAZOLE 200 MG TAB PO SCH (08:58)
[2016-09-19] MEDS: ENOXAPARIN 40 MG/0.4 ML SYG SC SCH (09:01)
[2016-09-19] MEDS: ATAZANAVIR 150 MG CAP PO SCH (11:05)
[2016-09-19] MEDS: FOLIC ACID 1 MG TAB PO SCH (12:59)
[2016-09-19 20:01] VITALS: BP 121/83; RESP 17
[2016-09-19] MEDS: MAGNESIUM HYDROXIDE 30ML CUP PO PRN (20:58)
[2016-09-19] MEDS: LORAZEPAM 0.5 MG TAB PO PRN (22:29)
[2016-09-19] MEDS: HYDROCODONE/APAP (5/325) TAB PO PRN (22:31)
[2016-09-20] MEDS: morphine 2 MG INJ IV PRN ×4 (02:45→17:27)
[2016-09-20 08:03] VITALS: BP 119/78; RESP 16
[2016-09-20] MEDS: METOCLOPRAMIDE 10 MG TAB PO SCH (09:01)
[2016-09-20] MEDS: RITONAVIR 100 MG CAP PO SCH (09:01)
[2016-09-20] MEDS: PANTOPRAZOLE (EC) 40 MG TAB PO SCH (09:01)
[2016-09-20] MEDS: FLUCONAZOLE 200 MG TAB PO SCH (09:01)
[2016-09-20] MEDS: FOLIC ACID 1 MG TAB PO SCH (09:01)
[2016-09-20] MEDS: METOPROLOL 25 MG TAB PO SCH (09:02)
[2016-09-20] MEDS: ENOXAPARIN 40 MG/0.4 ML SYG SC SCH (09:03)
[2016-09-20] MEDS: EMTRICITABINE/TENOFOVIR TAB PO SCH (10:34)
--- NOTE | 2016-09-20 19:03 | PN ---
Date/Time of Note Date/Time of Note DATE: 09/20/16 TIME: 19:03 Assessment/Plan VTE Prophylaxis VTE Prophylaxis Intervention: LMWH Lines/Catheters IV Catheter Type (from Nrs): [place] Urinary Cath still in place: No Assessment/Plan Chief Complaint/Hosp Course Subjective: 09/17 events noted. Delirium? Trying regular diet. 09/18 doing well 09/20: Doing well, alf facility accepted patient. O: Vss PE no pallor droop Reg Clear Bs present, nt nd, no R/R/G No edema Neuro: Nonfocal A/P 1. Dyspnea related to bronchitis. GERD? stable cont supportive care 2. Recent pneumonia 3. Chronic HIV 4. Left hemiparesis stroke. Aspirin? 5. Bipolar disorder 6. Dysphagia 7. Severe candidal esophagitis. Decrease Reglan due to delirium 8. Hypoalbuminemia 9. Chronic gastritis. H pylori negative. 10. Delirium? Decreased benzodiazepines. Decreased Reglan. Ambulate. 11. Ftt. transfer to [facility]. Fluconazole changed to po. Problems: Exam/Review of Systems Vital Signs Vitals Vital Signs Date Time Temp Pulse Resp B/P Pulse Ox O2 Delivery O2 Flow Rate FiO2 09/20/16 08:03 97.6 92 16 119/78 100 09/18/16 08:28 Room Air Intake and Output 09/19/16 09/19/16 09/20/16 15:00 23:00 07:00 Intake Total 1500 ml 800 ml Output Total 1350 ml 1200 ml Balance 150 ml -400 ml Results Result Diagram: 09/18/16 0459 09/18/16 0454 Medications Medications Current Medications Ondansetron HCl (Zofran Inj) 4 mg Q6H PRN IV NAUSEA AND/OR VOMITING Last administered on 09/07/16 11:12; Admin Dose 4 MG; Start 09/04/16 at 16:30 Acetaminophen (Tylenol Tab) 650 mg Q6H PRN PO PAIN LEVEL 1-3 OR FEVER; Start at 16:30 Acetaminophen/ Hydrocodone Bitart ([place] (5/325)) 1 tab Q6H PRN PO MODERATE PAIN LEVEL 4-6 Last administered on 09/19/16 22:31; Admin Dose 1 TAB; Start at 16:30 Morphine Sulfate (morphine) 2 mg Q4H PRN IV SEVERE PAIN LEVEL 7-10 Last administered on 09/20/16 17:27; Admin Dose 2 MG; Start 09/04/16 at 16:30 Docusate Sodium (Colace) 100 mg Q12H PRN PO CONSTIPATION Last administered on 07:00; Admin Dose 100 MG; Start 09/04/16 at 16:30 Magnesium Hydroxide (Milk Of Mag) 30 ml DAILY PRN PO CONSTIPATION Last administered on 09/19/16 20:58; Admin Dose 30 ML; Start 09/04/16 at 16:30 Sodium Biphosphate/ Sodium Phosphate (Fleet Enema) 133 ml DAILY PRN [place] CONSTIPATION; Start 09/04/16 at 16:30 Hydralazine HCl (Apresoline) 10 mg Q6H PRN IV ELEVATED BLOOD PRESSURE; Start at 16:30 Nitroglycerin (Nitroglycerin (Sl Tab) 0.4 Mg) 1 tab Q5M PRN SL ANGINA; Start at 16:30 IV Flush (NS 10 ml) 10 ml PRN PRN IV IV PROTOCOL Last administered on 15:08; Admin Dose 10 ML; Start 09/06/16 at 15:30 Prochlorperazine (Compazine Inj) 5 mg Q6H PRN IV NAUSEA AND/OR VOMITING Last administered on 09/07/16 15:08; Admin Dose 5 MG; Start 09/07/16 at 14:30 Pantoprazole (Protonix Tab) 40 mg BID PO Last administered on 09/20/16 09:01; Admin Dose 40 MG; Start 09/07/16 at 21:00 Emtricitabine/ Tenofovir (Truvada) 1 tab DAILY PO Last administered on 10:34; Admin Dose 1 TAB; Start 09/09/16 at 09:00 Atazanavir (Reyataz) 300 mg WeFr@09 PO Last administered on 09/19/16 11:05; Admin Dose 300 MG; Start 09/12/16 at 09:00 Ritonavir (Norvir) 100 mg DAILY PO Last administered on 09/20/16 09:01; Admin Dose 100 MG; Start 09/09/16 at 09:00 Metoprolol Tartrate (Lopressor) 12.5 mg BID PO Last administered on 09/20/16 09 :02; Admin Dose 12.5 MG; Start 09/16/16 at 21:00 Lorazepam (Ativan) 1 mg Q12 PRN PO ANXIETY Last administered on 09/19/16 22:29 ; Admin Dose 1 MG; Start 09/17/16 at 21:00 Metoclopramide HCl (Reglan) 5 mg BID PO Last administered on 09/20/16 09:01; Admin Dose 5 MG; Start 09/17/16 at 21:00 Enoxaparin Sodium (Lovenox) 40 mg DAILY SC Last administered on 09/20/16 09:03 ; Admin Dose 40 MG; Start 09/18/16 at 09:00 Fluconazole (Diflucan) 400 mg DAILY PO Last administered on 09/20/16 09:01; Admin Dose 400 MG; Start 09/17/16 at 16:00 Folic Acid (Folic Acid) 2 mg DAILY PO Last administered on 09/20/16 09:01; Admin Dose 2 MG; Start 09/19/16 at 12:30 MELVA MOSQUEDA MD Sep 20, 2016 19:03
== END 2016-09-20 20:06 | DRG 975 ==
LOC: E/R 12:31 → PP2 15:40
PROVIDERS: ADMIT Hospitalist; ATTEND Hospitalist
PROC: 02HV33Z Insertion of Infusion Device into Superior Vena Cava, Percutaneous Approach (ICD-10-PCS; 2016-09-06)
PROC: 0D5K8ZZ Destruction of Ascending Colon, Via Natural or Artificial Opening Endoscopic (ICD-10-PCS; 2016-09-07)
PROC: 0DB38ZX Excision of Lower Esophagus, Via Natural or Artificial Opening Endoscopic, Diagnostic (ICD-10-PCS; principal; 2016-09-07 19:00)
PROC: 0DB68ZX Excision of Stomach, Via Natural or Artificial Opening Endoscopic, Diagnostic (ICD-10-PCS; 2016-09-07 19:00)
PROC: 30253N1 (ICD-10-PCS; 2016-09-09)
DX: B20 Human immunodeficiency virus [HIV] disease (principal); B37.81 Candidal esophagitis; I69.951 Hemiplegia and hemiparesis following unspecified cerebrovascular disease affecting right dominant side; J18.9 Pneumonia, unspecified organism; K22.10 Ulcer of esophagus without bleeding; J20.9 Acute bronchitis, unspecified; D64.9 Anemia, unspecified; E87.6 Hypokalemia; F31.9 Bipolar disorder, unspecified; D63.8 Anemia in other chronic diseases classified elsewhere; R11.0 Nausea; K29.70 Gastritis, unspecified, without bleeding
CPT/HCPCS: 36415; 36430; 36569; 71010; 76937; 80048; 80053; 80061; 80202; 82607; 82746; 83036; 83605; 83615; 83735; 84100; 84439; 84443; 84484; 85025; 85610; 85730; 86360; 86592; 86850; 86900; 86901; 86920; 87040; 87400; 87536; 88305; 88312; 88313; 92610; 93005; 96365; 96366; 96368; 96375; 97162; J0692; J1450; J1644; J1650; J2270; J2405; J3370; J3480; J7030; J7040; J7042; P9016

== ENCOUNTER 2017-09-15 10:44 | Emergency (ER) | END 2017-09-15 11:57 | disposition home or self-care (01) ==

== ENCOUNTER 2017-09-22 11:48 | Emergency (ER) | END 2017-09-22 14:59 | disposition home or self-care (01) ==